=== PATIENT | female | born 1990 | race African-American/Black ===

== ENCOUNTER 2017-07-04 08:36 | Emergency (ER) | payer OTHER ==
[2017-07-04 08:56] VITALS: BMI 43.5
--- NOTE | 2017-07-04 09:16 | PDOC ---
History of Present Illness - General Chief Complaint: Sore Throat Stated Complaint: THROAT PAIN Time Seen by Provider: 07/04/17 09:16 History Source: Patient Exam Limitations: No Limitations - History of Present Illness Initial Comments: 07/04/17 10:00 Patient is a 27-year-old female with no past medical history who presents to the emergency department today with 2 days of sore throat. Patient states that she's never had anything like this before. She states that she has been spitting a lot and it hurts to swallow. Denies cough, fevers, shortness of breath, chest pain nausea, vomiting, diarrhea. Past History - Travel Traveled outside of the country in the last 30 days: No Close contact w/someone who was outside of country & ill: No - Past Medical History Allergies/Adverse Reactions: Allergies Allergy/AdvReac Type Severity Reaction Status Date / Time No Known Allergies Allergy Verified 07/04/17 08:49 Home Medications: Ambulatory Orders Ibuprofen 800 mg PO TID #30 tablet 07/04/17 Asthma: No Cancer: No Cardiac Disorders: No CVA: No COPD: No DVT: No Dementia: No Diabetes: No HTN: No Seizures: No Thyroid Disease: No - Immunization History Immunization Up to Date: Yes - Suicide/Smoking/Psychosocial Hx Smoking History: Never smoked Have you smoked in the past 12 months: Yes Number of Cigarettes Smoked Daily: 10 Information on smoking cessation initiated: No Hx Alcohol Use: No Drug/Substance Use Hx: No Substance Use Type: None Hx Substance Use Treatment: No Review of Systems - Review of Systems Able to Perform ROS?: Yes Comments:: 07/04/17 09:52 CONSTITUTIONAL: Absent: fever, chills, diaphoresis, generalized weakness, malaise, loss of appetite HEENT: Present: sore throat, mouth pain, difficulty swallowing Absent: rhinorrhea, nasal congestion, throat swelling, ear pain, eye pain, visual changes CARDIOVASCULAR: Absent: chest pain, loss of consciousness, palpitations, irregular heart rate, peripheral edema RESPIRATORY: Absent: cough, shortness of breath, dyspnea with exertion, orthopnea, wheezing, stridor, hemoptysis GASTROINTESTINAL: Absent: abdominal pain, abdominal distension, nausea, vomiting, diarrhea, constipation, melena, hematochezia GENITOURINARY: Absent: dysuria, frequency, urgency, hesitancy, hematuria, flank pain, genital pain MUSCULOSKELETAL: Absent: myalgia, arthralgia, joint swelling SKIN: Absent: rash, itching, pallor HEMATOLOGIC/IMMUNOLOGIC: Absent: easy bleeding, easy bruising, lymphadenopathy, frequent infections ENDOCRINE: Absent: unexplained weight gain, unexplained weight loss, heat intolerance, cold intolerance NEUROLOGIC: Absent: headache, focal weakness or paresthesias, dizziness, unsteady gait, seizure, mental status changes, bladder or bowel incontinence PSYCHIATRIC: Absent: anxiety, depression, suicidal or homicidal ideation, hallucinations. Is the patient limited Sinhala proficient: No *Physical Exam - Vital Signs Last Vital Signs Temp Pulse Resp BP Pulse Ox 98.7 F 111 H 17 133/74 97 07/04/17 08:50 07/04/17 08:50 07/04/17 08:50 07/04/17 08:50 07/04/17 08:50 - Physical Exam Comments: 07/04/17 09:54 GENERAL: Well developed, well nourished. Awake and alert. No acute distress. HEENT: Normocephalic, atraumatic. PERRLA, EOMI. No conjunctival pallor. Sclera are non- icteric. Moist mucous membranes. Oropharynx with exudates b/l. No uvular devation. (+) halitosis NECK: Supple. Full ROM. No JVD. Carotid pulses 2+ and symmetric, without bruits. No thyromegaly. No lymphadenopathy. CARDIOVASCULAR: Regular rate and rhythm. No murmurs, rubs, or gallops. Distal pulses are 2+ and symmetric. PULMONARY: No evidence of respiratory distress. Lungs clear to auscultation bilaterally. No wheezing, rales or rhonchi. ABDOMINAL: Soft. Non-tender. Non-distended. No rebound or guarding. No organomegaly. Normoactive bowel sounds. MUSCULOSKELETAL Normal range of motion at all joints. No bony deformities or tenderness. No CVA tenderness. EXTREMITIES: No cyanosis. No clubbing. No edema. No calf tenderness. SKIN: Warm and dry. Normal capillary refill. No rashes. No jaundice. NEUROLOGICAL: Alert, awake, appropriate. Cranial nerves 2-12 intact. No deficits to light touch and temperature in face, upper extremities and lower extremities. No motor deficits in the in face, upper extremities and lower extremities. Normoreflexic in the upper and lower extremities. Normal speech. Toes are down- going bilaterally. Gait is normal without ataxia. PSYCHIATRIC: Cooperative. Good eye contact. Appropriate mood and affect. Medical Decision Making - Medical Decision Making 07/04/17 10:01 Patient is a 27-year-old female who comes into the emergency department with 2 days of sore throat. Patient has a large amount of tonsillar exudate and halitosis. Suspicion for strep throat at this time. No evidence for GAME ENGINEER on exam. Will rapid strep and to give aftermath and dexamethasone for her symptomatically treatment. Reevaluate. 07/04/17 10:40 Patient is strep positive. 07/04/17 11:33 Pt. treated in the ED with bicillin. Feeling better after toradol, prednisone, and ofirmev. tolerating water. will d/c home at this time. *DC/Admit/Observation/Transfer Diagnosis at time of Disposition: Strep pharyngitis - Discharge Dispostion Disposition: HOME Condition at time of disposition: Stable Admit: No - Referrals Referrals: Mikey Liu MD [Staff Physician] - - Patient Instructions Printed Discharge Instructions: DI for Strep Throat Additional Instructions: You have strep throat. This is caused by a bacteria. You were treated with Bicillin today in the ED and do not need further antibiotic treatment. Please take ibuprofen 800 mg every 8 hours as needed for pain or body aches. Do not exceed taking more than 3000 mg a day. Throat lozenges and warm water gargles may help your sore throat. Please drink plenty of fluids Throat away your toothbrush in 3-4 days to prevent reinfection. Return to the emergency department if you have worsening pain, difficulty swallowing, difficulty chewing, difficulty breathing, or any changes in your symptoms. - Post Discharge Activity Forms/Work/School Notes: Back to Work
[2017-07-04] MEDS ORDERED: methylPREDNISolone NA SUCC 40 MG/1 ML VIAL IVPUSH ONE (09:34)
[2017-07-04] MEDS ORDERED: ACETAMINOPHEN 1000 MG/100 ML VIAL (NON FORMULARY) IVPB ONE (09:34)
[2017-07-04] MEDS ORDERED: ACETAMINOPHEN INJECTION 100 ML IVPB ONE (09:39)
[2017-07-04] MEDS ORDERED: methylPREDNISolone NA SUCC 125 MG/2 ML VIAL ONE (09:39)
--- NOTE | 2017-07-04 10:06 | PDOC ---
*Physical Exam - Vital Signs Last Vital Signs Temp Pulse Resp BP Pulse Ox 98.7 F 111 H 17 133/74 97 07/04/17 08:50 07/04/17 08:50 07/04/17 08:50 07/04/17 08:50 07/04/17 08:50 ED Treatment Course - Medications Given in the ED: ED Medications Discontinued Medications Generic Name Dose Route Start Last Admin Trade Name Glenn PRN Reason Stop Dose Admin Acetaminophen 1,000 mg 07/04/17 09:34 07/04/17 09:45 Ofirmev Injection - IVPB 07/04/17 09:35 1,000 mg ONCE ONE Administration Methylprednisolone Sodium Succinate 60 mg 07/04/17 09:34 07/04/17 09:51 Solu-Medrol - IVPUSH 07/04/17 09:35 60 mg ONCE ONE Administration Medical Decision Making - Medical Decision Making 07/04/17 10:04 Pt seen by the Advanced Practice Provider under my direct supervision Pt interviewed and examined Ancillary studies reviewed I agree with plan as outlined by the Advanced Practice Provider TING Kaiser 27 yo F c/ no pmh p/w 1d of sore throat and tactile fevers. Oropharynx exam with erythema and tonsillar exudates. Posterior oropharynx visible and with no evidece of occlusion. Uvula midline and no evidence of TELEGRAPH OFFICE MANAGER. Neck supple. I suspect strep pharyngitis. I agree with TING's plan of NSAIDs, steroids, and antibiotics. PO trial *DC/Admit/Observation/Transfer Diagnosis at time of Disposition: Strep pharyngitis - Discharge Dispostion Disposition: HOME Condition at time of disposition: Stable - Prescriptions Prescriptions: Ibuprofen 800 mg PO TID #30 tablet - Referrals Referrals: Mikey Liu MD [Staff Physician] - - Patient Instructions Printed Discharge Instructions: DI for Strep Throat Additional Instructions: You have strep throat. This is caused by a bacteria. You were treated with Bicillin today in the ED and do not need further antibiotic treatment. Please take ibuprofen 800 mg every 8 hours as needed for pain or body aches. Do not exceed taking more than 3000 mg a day. Throat lozenges and warm water gargles may help your sore throat. Please drink plenty of fluids Throat away your toothbrush in 3-4 days to prevent reinfection. Return to the emergency department if you have worsening pain, difficulty swallowing, difficulty chewing, difficulty breathing, or any changes in your symptoms. - Post Discharge Activity Forms/Work/School Notes: Back to Work
[2017-07-04] MEDS ORDERED: KETOROLAC TROMETHAMINE 30 MG/1 ML VIAL IVPUSH ONE (11:02)
[2017-07-04] MEDS ORDERED: PENICILLIN G BENZATHINE 1,200,000 UNIT/2 ML PFS IM ONE (11:02)
[2017-07-04] MEDS ORDERED: KETOROLAC TROMETHAMINE 30 MG/1 ML VIAL ONE (11:08)
[2017-07-04] MEDS ORDERED: PENICILLIN G BENZATHINE 2,400,000 UNIT/4 ML PFS ONE (11:08)
[2017-07-04 12:07] VITALS: BP 122/63; PULSE 105; TEMP 99.5
== END 2017-07-04 12:07 | disposition home or self-care (01) ==
LOC: JER 08:36 → JERFT 08:36 → JER 12:07
DX: J02.0 Streptococcal pharyngitis (principal); B95.0 Streptococcus, group A, as the cause of diseases classified elsewhere
CPT/HCPCS: 87070; 87430; 99282-25

== ENCOUNTER 2017-07-07 18:38 | Emergency (ER) | payer OTHER ==
[2017-07-07 18:57] VITALS: BP 141/85; PULSE 93; TEMP 99; BMI 37.1
[2017-07-07] MEDS ORDERED: DEXAMETHASONE SOD PHOSPHATE 10 MG/1 ML VIAL IM ONE (20:13)
[2017-07-07] MEDS ORDERED: KETOROLAC TROMETHAMINE 30 MG/1 ML VIAL IM ONE (20:13)
[2017-07-07] MEDS ORDERED: DEXAMETHASONE LIQUID 0.5 MG/5 ML 240 ML BULK BOTTLE PO ONE (20:14)
[2017-07-07] MEDS ORDERED: DEXAMETHASONE SOD PHOSPHATE 10 MG/1 ML VIAL ONE (20:18)
--- NOTE | 2017-07-07 20:22 | PDOC ---
History of Present Illness - General Chief Complaint: Sore Throat Stated Complaint: PAIN Time Seen by Provider: 07/07/17 20:07 History Source: Patient Exam Limitations: No Limitations - History of Present Illness Initial Comments: 07/07/17 20:21 This 27-year-old female with 4 days of sore throat and fever. 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 Patient states over the past 3 days sore throat as gotten worse and she is now currently having trouble tolerating her own secretions. Patient states she wakes up at night and feels as if she "suffocating or drowning." She states her voice has changed his become more hoarse and quality. Past History - Past Medical History Allergies/Adverse Reactions: Allergies Allergy/AdvReac Type Severity Reaction Status Date / Time No Known Allergies Allergy Verified 07/07/17 18:53 Home Medications: Ambulatory Orders NK [No Known Home Medication] 07/07/17 Asthma: No Cancer: No Cardiac Disorders: No CVA: No COPD: No DVT: No Dementia: No Diabetes: No HTN: No Seizures: No Thyroid Disease: No - Immunization History Immunization Up to Date: Yes - Suicide/Smoking/Psychosocial Hx Smoking History: Former smoker Have you smoked in the past 12 months: Yes Number of Cigarettes Smoked Daily: 10 Information on smoking cessation initiated: No Hx Alcohol Use: No Drug/Substance Use Hx: No Substance Use Type: None Hx Substance Use Treatment: No Review of Systems - Review of Systems Able to Perform ROS?: Yes Is the patient limited Botswanan proficient: No Constitutional: Yes: See HPI HEENTM: Yes: See HPI Respiratory: No: Symptoms reported Cardiac (ROS): No: Symptoms Reported ABD/GI: No: Symptoms Reported : No: Symptoms Reported Musculoskeletal: No: Symptoms Reported Integumentary: No: Symptoms Reported Neurological: No: Symptoms reported Endocrine: No: Symptoms Reported Hematologic/Lymphatic: No: Symptoms Reported *Physical Exam - Vital Signs Last Vital Signs Temp Pulse Resp BP Pulse Ox 99 F 93 H 19 141/85 98 07/07/17 18:53 07/07/17 18:53 07/07/17 18:53 07/07/17 18:53 07/07/17 18:53 - Physical Exam General Appearance: Yes: Appropriately Dressed. No: Apparent Distress HEENT: positive: Excessive drooling, Other (Uvula deviated to the right side. Peritonsillar abscess noted on the left peritonsillar region. Hot potato voice present.) Neck: positive: Trachea midline, Supple Respiratory/Chest: positive: Lungs Clear, Normal Breath Sounds. negative: Respiratory Distress, Accessory Muscle Use, Stridor Cardiovascular: positive: Regular Rhythm, Regular Rate Medical Decision Making - Medical Decision Making 07/07/17 20:26 A/P: 27-year-old female with worsening sore throat status post Bicillin Hot potato voice present Right uvula deviation. 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 Decadron 10 mg, Toradol 30 mg, to the main emergency department. Sign out given to Kristen Crawford *DC/Admit/Observation/Transfer Diagnosis at time of Disposition: Peritonsillar abscess - Referrals - Patient Instructions - Post Discharge Activity
--- NOTE | 2017-07-07 22:46 | PDOC ---
*Physical Exam - Vital Signs Last Vital Signs Temp Pulse Resp BP Pulse Ox 99 F 93 H 19 141/85 98 07/07/17 18:53 07/07/17 18:53 07/07/17 18:53 07/07/17 18:53 07/07/17 18:53 - Physical Exam General Appearance: Yes: Appropriately Dressed HEENT: positive: Tonsillar Erythema (b/l tonsillar edema, uvula midline. hot potatoe voice) ED Treatment Course - Medications Given in the ED: ED Medications Discontinued Medications Generic Name Dose Route Start Last Admin Trade Name Glenn PRN Reason Stop Dose Admin Dexamethasone 10 mg 07/07/17 20:14 07/07/17 20:24 Decadron Liquid - PO 07/07/17 20:15 10 mg ONCE ONE Administration Dexamethasone Sodium Phosphate 10 mg 07/07/17 20:13 07/07/17 20:25 Decadron Injection - IM 07/07/17 20:14 Not Given ONCE ONE Ketorolac Tromethamine 30 mg 07/07/17 20:13 07/07/17 20:24 Toradol Injection - IM 07/07/17 20:14 30 mg ONCE ONE Administration Medical Decision Making - Medical Decision Making 07/07/17 22:55 Dr. oralia richter. 07/07/17 23:[address] martinez. recommend follow up tomorrow am with strict return precautions, will d/c home with ibuprofen and clindamycin *DC/Admit/Observation/Transfer Diagnosis at time of Disposition: Peritonsillar abscess Pharyngitis Qualifiers: Pharyngitis/tonsillitis etiology: unspecified etiology Qualified Code(s): J02.9 - Acute pharyngitis, unspecified - Discharge Dispostion Disposition: HOME - Prescriptions Prescriptions: Clindamycin [Cleocin -] 300 mg PO Q6HPO #40 capsule Ibuprofen 600 mg PO QID #20 tablet - Referrals Referrals: Sander Martinez MD [Staff Physician] - - Patient Instructions Printed Discharge Instructions: DI for Peritonsillar Abscess -- Adult Additional Instructions: please follow up with Dr. martinez tomorrow morning. take clindamycin as prescribed. take ibuprofen every 6 hours as needed for pain. - Post Discharge Activity Forms/Work/School Notes: Back to Work
[2017-07-07] MEDS ORDERED: SODIUM CHLORIDE 1,000 ML IV STA (22:47)
[2017-07-07] MEDS ORDERED: CLINDAMYCIN 900 MG PREMIX IVPB 900 MG/50 ML BAG IVPB ONE (22:55)
[2017-07-07] MEDS ORDERED: CLINDAMYCIN HCL 300 MG CAPSULE PO ONE (23:01)
[2017-07-07] MEDS ORDERED: CLINDAMYCIN HCL 150 MG CAPSULE (FP) ONE (23:15)
== END 2017-07-07 23:35 | disposition home or self-care (01) ==
LOC: JERFT 18:38 → JER 18:38
PROC: 3E0233Z Introduction of Anti-inflammatory into Muscle, Percutaneous Approach (ICD-10-PCS; principal; 2017-07-07)
PROC: 3E0233Z Introduction of Anti-inflammatory into Muscle, Percutaneous Approach (ICD-10-PCS; 2017-07-07)
DX: J36 Peritonsillar abscess (principal); Z87.891 Personal history of nicotine dependence
CPT/HCPCS: 96372; 99281-25

== ENCOUNTER 2017-09-22 12:26 | Emergency (ER) | payer OTHER ==
[2017-09-22 12:32] VITALS: BMI 40.3
[2017-09-22] MEDS ORDERED: ACETAMINOPHEN 1000 MG/100 ML VIAL (NON FORMULARY) IVPB ONE (12:55)
--- NOTE | 2017-09-22 12:55 | PDOC ---
History of Present Illness - General Chief Complaint: Pain Stated Complaint: ABD PAIN (10 WKS ) Time Seen by Provider: 09/22/17 12:36 History Source: Patient Exam Limitations: No Limitations - History of Present Illness Initial Comments: This is a 27 yo female (about 10 wks dx by US two weeks ago at her [facility] clinic) with h/o x2 and frequent UTI (last abx May 2017 for UTI) who p/w fluctuating suprapubic pressure-like abdominal pain for the past week. She notes that the pain was initially mild and occurring only once every 2 days, but now it is constantly present at minimum 5/10, increased to 10/10 this morning, and radiates to her lower back. She called her [facility] clinic ([id number] 4 days ago and notified them of the pain, and they instructed her to take Tylenol and come into the ED if the pain recurred. She took the Tylenol with initial relief at that time, but has not taken another dose. She additionally notes a mild headache yesterday, and ongoing/unchanged nausea and NBNB vomiting for the past several weeks since she found out about this . She has been taking an antiemetic for the nausea/vomiting as prescribed by her clinic. She denies fever, chills, dizziness, lightheadedness, numbness, tingling, focal weakness, chest pain, SOB, vaginal bleeding or discharge, diarrhea, constipation, black/bloody stool, dyruria, urinary frequency or strange odors/colors to the urine. She has never had any of these symptoms in her prior . Past History - Past Medical History Allergies/Adverse Reactions: Allergies Allergy/AdvReac Type Severity Reaction Status Date / Time No Known Allergies Allergy Verified 09/22/17 12:32 Home Medications: Ambulatory Orders Pnv No.121/Iron/Folic Acid [ Multivitamin Tablet] 1 each PO DAILY Asthma: No Cancer: No Cardiac Disorders: No CVA: No COPD: No DVT: No Dementia: No Diabetes: No HTN: No Seizures: No Thyroid Disease: No - Immunization History Immunization Up to Date: Yes - Suicide/Smoking/Psychosocial Hx Smoking History: Current every day smoker Have you smoked in the past 12 months: Yes Number of Cigarettes Smoked Daily: 4 Information on smoking cessation initiated: No Hx Alcohol Use: No Drug/Substance Use Hx: No Substance Use Type: None Hx Substance Use Treatment: No Review of Systems - Review of Systems Able to Perform ROS?: Yes Constitutional: No: Chills, Fever, Unexplained wgt Loss HEENTM: No: Nose Congestion, Throat Pain Respiratory: No: Cough, Shortness of Breath Cardiac (ROS): No: Chest Pain, Lightheadedness, Palpitations ABD/GI: Yes: Nausea, Vomiting, Other (abdominal pain). No: Constipated, Diarrhea : Yes: Other (no vaginal bleeding or discharge). No: Burning, Dysuria Musculoskeletal: Yes: Back Pain (lower back pain). No: Neck Pain Integumentary: No: Bruising, Rash Neurological: Yes: Headache (yesterday since resolved). No: Numbness, Tingling , Weakness, Unsteady Gait, Dizziness Endocrine: No: Unexplained Weight Gain, Unexplained Weight Loss *Physical Exam - Vital Signs Last Vital Signs Temp Pulse Resp BP Pulse Ox 98.4 F 67 18 115/58 99 09/22/17 12:29 09/22/17 12:29 09/22/17 12:29 09/22/17 12:29 09/22/17 12:29 - Physical Exam General Appearance: Yes: Nourished, Appropriately Dressed, Obese, Other ( nontoxic and well-appearing adult female, stoic, answering questions appropriately and does not appear particularly uncomfortable). No: Apparent Distress HEENT: positive: EOMI, HAKEEM, Normal ENT Inspection, Normal Voice, Hearing Grossly Normal. negative: Scleral Icterus (R), Scleral Icterus (L), Nasal Congestion Neck: positive: Trachea midline, Supple. negative: Tender, Rigid Respiratory/Chest: positive: Lungs Clear, Normal Breath Sounds. negative: Respiratory Distress, Crackles, Rhonchi, Stridor, Wheezing Cardiovascular: positive: Regular Rhythm, Regular Rate, S1, S2. negative: Edema , JVD, Murmur Gastrointestinal/Abdominal: positive: Normal Bowel Sounds, Tender (mild suprapubic tenderness), Soft, Other (LTCS scar noted which is well-healed). negative: Organomegaly, Pulsatile Mass, Guarding Musculoskeletal: positive: Normal Inspection. negative: CVA Tenderness, Decreased Range of Motion, Vertebral Tenderness Extremity: positive: Normal Capillary Refill, Normal Inspection, Normal Range of Motion. negative: Tender, Cyanosis Integumentary: positive: Normal Color, Dry, Warm. negative: Erythema, Rash, Bruising Neurologic: positive: automatic door mechanic II-XII NML intact (grossly), Fully Oriented, Alert, Normal Mood/Affect, Normal Response, Motor Strength 5/5. negative: Facial Droop , Confused, Disoriented ED Treatment Course - LABORATORY CBC & Chemistry Diagram: 09/22/17 13:15 09/22/17 13:15 Medical Decision Making - Medical Decision Making Adult female patient p/w abdominal pain in . Initial Vital Signs Temp Pulse Resp BP Pulse Ox 98.4 F 67 18 115/58 99 09/22/17 12:29 09/22/17 12:29 09/22/17 12:29 09/22/17 12:29 09/22/17 12:29 Exam: Mild suprapubic ttp, otherwise normal exam DDX IBNLT: UTI/pyelonephritis, renal colic, ovarian torsion, ovarian cyst, ectopic , PID/TOA, cervicitis, endometritis, physiologic uterine ligament pain, malignancy, hernia, cholecystitis, pancreatitis, gastritis, PUD, appendicitis, diverticulitis wwo abscess or perforation, colitis, SBO, bowel ischemia, bowel perforation, constipation, musculoskeletal, dysmenorrhea, endometriosis, fibroids, etc. W/U ordered: CBCD CMP UA UCx transvaginal US TX ordered: None as patient does not want IV placed at this time. TVUS: Single live IUP with gestational age 8 wks 5 days. Laboratory Tests 09/22/17 09/22/17 09/22/17 13:15 13:15 13:15 WBC 5.9 RBC 4.56 D Hgb 12.4 D Hct 37.2 D MCV 81.5 MCH 27.3 MCHC 33.4 RDW 16.2 H D Plt Count 256 MPV 8.5 Neutrophils % 66.0 Lymphocytes % 24.2 D Monocytes % 8.4 Eosinophils % 0.7 Basophils % 0.7 D Sodium 141 Potassium 4.2 Chloride 106 Carbon Dioxide 25 Anion Gap 10 BUN 9 Creatinine 0.5 L Creat Clearance w eGFR > 60 Random Glucose 69 L Calcium 8.8 Phosphorus 2.6 Magnesium 1.7 L Total Bilirubin 0.1 L AST 11 L ALT 13 Alkaline Phosphatase 72 Total Protein 6.2 L Albumin 3.1 L Beta HCG, Quant 01454.1 Urine Color Ltyellow Urine Appearance Slcloudy Urine pH 7.0 Ur Specific [place] 1.013 Urine Protein Negative Urine Glucose (UA) Negative Urine Ketones Negative Urine Blood Negative Urine Nitrite Negative Urine Bilirubin Negative Urine Urobilinogen Negative Ur Leukocyte Esterase Trace Urine WBC (Auto) 2 Urine RBC (Auto) None Ur Epithelial Cells Few Urine Bacteria Rare Urine Mucus Rare Reassessment: Patient's symptoms much improved, she wants to go home. Vital Signs Temperature 98.3 F 09/22/17 14:22 Pulse Rate 71 09/22/17 14:22 Respiratory Rate 17 09/22/17 14:22 Blood Pressure 118/79 09/22/17 14:22 O2 Sat by Pulse Oximetry (%) 98 09/22/17 14:22 The patient has gotten significant relief of symptoms with ED medications. Workup is not concerning for emergency-level pathology at this time. The patient is appropriate for discharge with close outpatient follow up. The patient is comfortable with this plan and will follow up with outpatient provider in 1-3 days. She will take Tylenol for pain. Return precautions are discussed and they will come back to the ER if necessary. *DC/Admit/Observation/Transfer Diagnosis at time of Disposition: Abdominal pain affecting , Back pain affecting in first trimester, Hyperemesis gravidarum - Discharge Dispostion Disposition: HOME Condition at time of disposition: Stable Decision to Admit order: No - Referrals - Patient Instructions Printed Discharge Instructions: DI for Abdominal Pain -- Early Additional Instructions: You were seen in the ER for abdominal pain during . We did an exam, laboratory work on your blood and urine, and an ultrasound, and we did not find any signs of an emergency. Your pain improved with the medications we gave you here in the ER. After our assessment, we believe you are not having a medical emergency and you are safe to go home. Please take [id number] pain relievers like naproxen (Aleve) or ibuprofen (Motrin) or Tylenol. Follow up with your regular doctor(s) in the next 1-3 days, including the [id number] for a follow-up visit. Call their clinic [facility], tell them you were seen in the ER, and tell them you need an appointment. Please come back to the ER at any time, 24 hours a day, for any new or worsening symptoms, like worsening pelvic pain, discharge, high fever, vaginal bleeding, or other symptoms. If you are having severe or life threatening symptoms, or symptoms that make it unsafe to drive or have someone drive you, please call 911. - Post Discharge Activity
--- NOTE | 2017-09-22 12:57 | PDOC ---
Attending Attestation - Resident Resident Name: Jelena Phipps - ED Attending Attestation I have performed the following: I have examined & evaluated the patient, The case was reviewed & discussed with the resident, I agree w/resident's findings & plan, Exceptions are as noted - Medical Decision Making 09/22/17 12:57 I, Dr. Sandie Hinson, DO, attest that this document has been prepared under my direction and personally reviewed by me in its entirety. I further attest, that it accurately reflects all work, treatment, procedures and medical decision -making performed by me. 09/22/17 13:30 a/p: 27yo at around 10 weeks with suprapubic pain -hx of UTI -no dysuria, no vaginal complaints -n/v daily with early preg - nonbloody, nonbilious -will obtain labs, ua, tv us to eval uterus, iup, ovarian pathology -nontoxic in appearance 09/22/17 14:22 labs reviewed without acute findings ultrasound shows iup at 8w5d with 163 hr stable for d.c to home and follow up with her [facility] at [facility] discussed findings with the patient. <Sandie Hinson - Last Filed: 09/22/17 14:22> - HPI HPI: 09/22/17 14:41 The patient is a 27 year old 10 weeks female , with a significant past medical history of frequent UTIs (last May 2017), who presents to the emergency department with, one week of suprapubic pain. She describes her pain as a pressure-like sensation. The patient reports that it initially was occurring every 2 days, however, now it has become constant. She ranks her pain as 5/10 at minimum and reaching to 10/10. She reports calling her OBGYN for her symptoms who advised her to take Tylenol and come into the ED if symptoms persisted. She reports minimal relief with Tylenol. She reports a mild headache and nausea and emesis since the beginning of her . She denies any vaginal bleeding or discharge. She denies recent fevers, chills, or dizziness. She denies recent diarrhea or constipation. She denies recent dysuria, frequency, urgency or hematuria. She denies recent chest pain or shortness of breath. Allergies: NKA Past surgical history: . Social history: Nonsmoker. Denies EtOH use and recreational drug use. - Physicial Exam PE: 09/22/17 14:41 Constitutional: Awake, alert, oriented. No acute distress. Head: Normocephalic. Atraumatic Eyes: PERRL. EOMI. Conjunctivae are not pale. ENT: Mucous membranes are moist and intact. Posterior pharynx without exudates or erythema. Uvula midline. Neck: Supple. Full ROM. No lymphadenopathy. Cardiovascular: Regular rate. Regular rhythm. S1, S2 regular. Distal pulses are 2+ and symmetric. Pulmonary/Chest: No evidence of respiratory distress. Clear to auscultation bilaterally No wheezing, rales or rhonchi. Abdominal: Soft and non-distended. There is no tenderness. No rebound, guarding or rigidity. No organomegaly. No palpable masses. Good bowel sounds. +Genitourinary: Mild suprapubic tenderness. Back: No CVA tenderness. Musculoskeletal: No edema. No cyanosis. No clubbing. Full range of motion in all extremities. Nocalf tenderness. Radial/pedal pulses are intact and 2+ bilaterally Skin: Skin is warm and dry. No petechiae. No purpura. Neurological: Alert and oriented to person, place, and time. Cranial nerves II -XII are grossly intact. Normal speech. Strength is grossly symmetric. No sensory deficits. Psychiatric: Good eye contact. Normal interaction, affect and behavior. <Donnie Cabrera - Last Filed: 09/22/17 14:43> Attestations - Attestations 09/22/17 14:43 Documentation prepared by Donnie Cabrera, acting as coroner/medical examiner for Sandie Hinson DO. <Donnie Cabrera - Last Filed: 09/22/17 14:43>
[2017-09-22] MEDS ORDERED: ACETAMINOPHEN INJECTION 100 ML IVPB ONE (13:04)
[2017-09-22 13:22] LABS: BASO % 0.7 % (0-2.0); EOS % 0.7 % (0-4.5); HEMATOCRIT 37.2 % (32.4-45.2); HEMOGLOBIN 12.4 GM/dL (10.7-15.3); LYMPH % 24.2 % (8-40); MCH 27.3 pg (25.7-33.7); MCHC 33.4 g/dl (32.0-36.0); MEAN CELL VOLUME 81.5 fl (80-96); MEAN PLT VOLUME 8.5 fl (7.5-11.1); MONO % 8.4 % (3.8-10.2); PLATELET COUNT 256 K/MM3 (134-434); RBC 4.56 M/mm3 (3.60-5.2); RDW 16.2 % (11.6-15.6); URINE APPEARANCE SLCLOUDY; URINE BILIRUBIN NEGATIVE (<2.0 mg/dL); URINE COLOR LTYELLOW; URINE GLUCOSE (UA) NEGATIVE (NEGATIVE); URINE KETONE NEGATIVE (NEGATIVE); URINE LEUK ESTERASE TRACE (NEGATIVE); URINE NITRITE NEGATIVE (NEGATIVE); URINE PROTEIN NEGATIVE (NEGATIVE); URINE UROBILINOGEN NEGATIVE mg/dL (0.2-1.0); WHITE BLOOD COUNT 5.9 K/mm3 (4.0-10.0)
[2017-09-22 13:25] LABS: EPI CELLS FEW /HPF (FEW); URINE BACTERIA RARE /hpf (NONE SEEN); URINE MUCUS RARE
[2017-09-22 13:48] LABS: ALBUMIN 3.1 g/dl (3.4-5.0); ANION GAP 10 (8-16); BILIRUBIN,TOTAL 0.1 mg/dL (0.2-1.0); BLOOD UREA NITROGEN 9 mg/dL (7-18); CALCIUM 8.8 mg/dL (8.5-10.1); CHLORIDE 106 mmol/L (98-107); CO2 25 mmol/L (21-32); CREATININE 0.5 mg/dL (0.55-1.02); GLUCOSE,RANDOM 69 mg/dL (74-106); MAGNESIUM 1.7 mg/dL (1.8-2.4); PHOSPHOROUS 2.6 mg/dL (2.5-4.9); POTASSIUM 4.2 mmol/L (3.5-5.1); SGOT/AST 11 U/L (15-37); SGPT/ALT 13 U/L (12-78); SODIUM 141 mmol/L (136-145); TOT PROT 6.2 g/dl (6.4-8.2)
[2017-09-22 14:03] LABS: ALK PHOS 72 U/L (45-117)
[2017-09-22 14:23] VITALS: BP 118/79; PULSE 71; TEMP 98.3
== END 2017-09-22 14:23 | disposition home or self-care (01) ==
LOC: JER 12:26
DX: O26.891 Other specified pregnancy related conditions, first trimester (principal); O21.0 Mild hyperemesis gravidarum; Z3A.10 10 weeks gestation of pregnancy
CPT/HCPCS: 36415; 76817-TC; 80053; 81003; 81015; 83735; 84100; 84702; 85025; 87086; 99282-25

== ENCOUNTER 2018-04-03 08:00 | Inpatient (IN) | payer OTHER ==
[~2018-04-03 08:00] MED LIST: CITRIC ACID/SODIUM CITRATE 30 ML UNIT-DOSE CUP PO ONE; ELECTROLYTE-148 SOLN 500 ML IV ONE
[2018-04-03] MEDS ORDERED: ELECTROLYTE-148 SOLN 1,000 ML IV SCH ×2 (08:31→09:15)
[2018-04-03 08:59] VITALS: BMI 42.3
[2018-04-03 09:09] LABS: BASO % 0.6 % (0-2.0); EOS % 0.8 % (0-4.5); HEMATOCRIT 35.1 % (32.4-45.2); HEMOGLOBIN 11.4 GM/dL (10.7-15.3); LYMPH % 20.9 % (8-40); MCH 26.7 pg (25.7-33.7); MCHC 32.6 g/dl (32.0-36.0); MEAN CELL VOLUME 81.8 fl (80-96); MONO % 7.7 % (3.8-10.2); PLATELET COUNT 281 K/MM3 (134-434); RBC 4.29 M/mm3 (3.60-5.2); RDW 14.8 % (11.6-15.6); WHITE BLOOD COUNT 7.6 K/mm3 (4.0-10.0)
[2018-04-03] MEDS ORDERED: METHYLERGONOVINE MALEATE 0.2 MG/1 ML AMP IM PRN (09:17)
[2018-04-03] MEDS ORDERED: IBUPROFEN 800 MG/8 ML IJ IVPB PRN (09:17)
--- NOTE | 2018-04-03 09:29 | HP ---
Past Medical History - Primary Care Physician PCP:: Charlotte Rodríguez - Admission Chief Complaint: Premature rupture of mambarnes. Previous Section. Labor History of Present Illness: P5 P2 EDc A 37 week with co premature rupture of membranes in labor with Hx of previous cS x2 for repeat CS Hx of delivery by CS History Source: Patient Limitations to Obtaining History: No Limitations - Past Medical History ...: 5 ...Para: 2 ...Term: 1 ...: 1 ...Spon : 1 ...Induced : 1 ...Multiple Gestation: 0 ...EDC by Sono: 04/24/18 - Past Surgical History Past Surgical History: Yes: Hx Myomectomy: No Hx Transabdominal Cerclage: No - Smoking History Smoking history: Current every day smoker Have you smoked in the past 12 months: Yes Aproximately how many cigarettes per day: 5 - Alcohol/Substance Use Hx Alcohol Use: No History of Substance Use: reports: None - Social History Usual Living Arrangement: Yes: With Spouse Home Medications - Allergies Allergies/Adverse Reactions: Allergies Allergy/AdvReac Type Severity Reaction Status Date / Time No Known Allergies Allergy Verified 09/22/17 12:32 - Home Medications Home Medications: Ambulatory Orders Pnv No.121/Iron/Folic Acid [ Multivitamin Tablet] 1 each PO DAILY Physical Exam - Maternity Vital Signs: Vital Signs Temperature 97.5 F L 04/03/18 08:00 Pulse Rate 95 H 04/03/18 08:00 Respiratory Rate 18 04/03/18 08:00 Blood Pressure 133/78 04/03/18 08:00 O2 Sat by Pulse Oximetry (%) Constitutional: Yes: Well Nourished, No Distress, Obese Neck: Yes: WNL Cardiovascular: Yes: WNL, Regular Rate and Rhythm Lungs: Clear to auscultation Breast(s): Yes: WNL - Abdominal Exam/OB Number of Fetuses: Single Presentation: Vertex Contractions: Yes Regularity: Regular Category: I Decelerations: None - Vaginal Exam/OB Dilatation (cm): 1 Effacement (%): 100 Amniotic Membrane Status: Ruptured Presentation: Vertex/Position - Physical Exam Musculoskeletal: Yes: WNL Extremities: Yes: WNL Edema: No Hemorrhage Risk Assessment - Risk Factors Medium Risk Factors: Yes: Prior , uterine surgery,or multiple laparotomies Risk Score: 1 Risk Level: Medium Risk Problem List - Problems (1) Previous delivery affecting , antepartum Code(s): O34.219 - MATERNAL CARE FOR UNSP TYPE SCAR FROM PREVIOUS DEL (2) premature rupture of membranes, onset of labor within 24 hours of rupture, first trimester Code(s): O42.011 - PRETRM KRUPA ROM, ONSET LABOR W/N 24 HOURS OF RUPT, FIRST TRI (3) 37 weeks gestation of Code(s): Z3A.37 - 37 WEEKS GESTATION OF Assessment/Plan Previous Section IUP at 37 weeks premature rupture of mmebranes Obesity Cat 1 Plan Repeat Section needs neonatology call anesthesia
[2018-04-03] MEDS ORDERED: morphine SULFATE/Preservative Free 0.5 MG/ML (1cc Syringe) EP ONE (09:30)
[2018-04-03] MEDS ORDERED: OXYTOCIN 20 UNITS in 0.9% NS 20 UNIT/1,000 ML INFUS.BAG IV SCH (09:30)
[2018-04-03 09:45] LABS: INR 0.99 (0.83-1.09); PROTHROMBIN TIME (PATIENT) 11.7 SEC (9.7-13.0)
[2018-04-03] MEDS ORDERED: ceFAZolin SODIUM 1 GM VIAL ONE ×2 (09:45→17:09)
[2018-04-03 09:47] LABS: ACTIVATED PTT 26.5 SECONDS (25.2-36.5)
[2018-04-03] MEDS ORDERED: PHENYLEPHRINE HCL 10 MG/1 ML SINGLE DOSE VIAL ONE (09:53)
[2018-04-03 10:00] LABS: ANION GAP 9 MMOL/L (8-16); BLOOD UREA NITROGEN 4 mg/dL (7-18); CALCIUM 8.4 mg/dL (8.5-10.1); CHLORIDE 110 mmol/L (98-107); CO2 21 mmol/L (21-32); CREATININE 0.3 mg/dL (0.55-1.3); GLUCOSE,RANDOM 81 mg/dL (74-106); POTASSIUM 3.7 mmol/L (3.5-5.1); SODIUM 139 mmol/L (136-145)
[2018-04-03] MEDS ORDERED: OXYTOCIN 10 UNITS/ML VIAL ONE (10:07)
[2018-04-03] MEDS ORDERED: MIDAZOLAM HCL 2 MG/2 ML SINGLE DOSE VIAL ONE (10:08)
--- NOTE | 2018-04-03 10:54 | SURG ---
Surgery Traffic Control Officer Note Traffic Control Officer: Ajay Roberts PA-C Date of Service: 04/03/18 Diagnosis: labor Procedure: C section I was present for the entirety of the operative procedure. For further detail, please refer to operative report.
[2018-04-03 10:56] LABS: ARTERIAL BLD GAS O2 SATURATION QNS % (90-98.9); ARTERIAL BLOOD GAS BASE EXCESS QNS meq/l (-2-2); ARTERIAL BLOOD GAS PCO2 QNS mmHg (35-45); ARTERIAL BLOOD GAS PO2 QNS mmHg (80-100); ARTERIAL BLOOD GAS pH QNS (7.35-7.45)
[2018-04-03 10:58] LABS: VENOUS PC02 76.5 mmHg (38-52); VENOUS PH 7.1 (7.32-7.42); VENOUS PO2 11.8 mmHg (28-48)
--- NOTE | 2018-04-03 11:05 | OP ---
Operative Note - Note: Operative Date: 04/03/18 Pre-Operative Diagnosis: Previous Section. labor. premature rupture of membranes. IUP at 37 week Operation: Repeat low transverse Section Findings: Live male infant 4 7 Post-Operative Diagnosis: Same as Pre-op Surgeon: Charlotte Rodríguez Intermediate Accountant: Ajay Roberts Anesthesiologist/[employer] SENIOR OFFICER: Charles Tony Anesthesia: Spinal Estimated Blood Loss (mls): 700 Operative Report Dictated: Yes
[2018-04-03] MEDS ORDERED: OXYTOCIN 20 UNITS in 0.9% NS 20 UNIT/1,000 ML INFUS.BAG IV ONE (11:26)
[2018-04-03 11:32] LABS: RPR NONREACTIVE (NONREACTIVE)
--- NOTE | 2018-04-03 11:36 | OP ---
DATE OF OPERATION: 04/03/2018 PREOPERATIVE DIAGNOSES: Premature rupture of membranes intrauterine of 37 weeks, previous section, obesity. OPERATION: Repeat low-transverse section. PREOPERATIVE DIAGNOSIS: Live male infant, Apgars 4 and 7. SURGEON: Abundio Rodríguez MD CHAPERON: TING Moss ANESTHESIOLOGIST: Charles Tony MD ANESTHESIA: Spinal. PROCEDURE: The patient was taken to the operating room, placed in supine position, prepped and draped in usual sterile fashion after spinal anesthesia had been given. A timeout was performed in accordance with hospital regulation. A Pfannenstiel skin incision was made with the scalpel. Cautery was then used to go through layers of abdominal wall to the level of the fascia. Fascia was cut in the midline and cautery was then used to open the fascia in smiling fashion. Kochers were then used to bluntly and sharply dissect the rectus muscle. The fascia was split in the midline. Peritoneal cavity was then entered and carried upward and downward. Bladder retractor was then placed. Scalpel was then used to make a low transverse uterine incision. The incision was carried upward using the bandage scissors. A live male was delivered in OP position. Shoulders were delivered without difficulty. Cord was clamped and cut. Infant was directly handed to wire steward. was 4 and 7. Cord blood, cord pH obtained. Placenta was manually extracted from the uterus. The uterus was exteriorized and cleaned with clean lap pads. Uterine incision was then closed using 0 Biosyn suture, first layer continuous interlocking, second layer imbricating the first layer. Hemostasis was achieved. Tubes and ovaries were noted to be normal. Abdominal sweep done. Omental adhesions were lysed and tied and cut. Peritoneum was then closed using 0 Biosyn suture. Muscles approximated in midline using 0 Biosyn suture. Fascia was then closed using 0 Vicryl suture in 2 parts. Subcutaneous was closed using 0 Biosyn sutures interrupted. Skin was then closed using 3-0 Vicryl in subcuticular fashion. Wound was washed and dressed. Patient tolerated the procedure well. Estimated blood loss was less than 100 mL. Steri-Strips placed. Patient tolerated the procedure well and was taken to recovery in stable condition. ABUNDIO RODRÍGUEZ M.D. NANCY/[id number]
--- NOTE | 2018-04-03 13:51 | PN ---
Progress Note (short form) - Note Progress Note: Came to see/evaluate patient per nursing request. Pt POD#0 s/p delivery this a.m. Attempting to get out of bed/ambulate to see baby. Discussed with patient that she is likely still not completely able to ambulate/ not safe to walk yet due to lasting effects of spinal anesthesia. Discussed that when she desires to see baby in NICU must use wheelchair and STAY in wheelchair until later this evening. Pt aware and agrees. States no pain. Otherwise doing well. Nursing staff made aware of plan.
[2018-04-03] MEDS ORDERED: TUBERCULIN PPD 5 TU/0.1ML SYRINGE (IN PATIENT USE ONLY) ID ONE (14:00)
[2018-04-03] MEDS ORDERED: DEXTROSE 5%-WATER - 50 ML IVPB ONE (17:09)
[2018-04-03] MEDS: CEFAZOLIN 1 GM in DEXTROSE 5%-WATER - 50 ML IVPB SCH (17:17)
[2018-04-04] MEDS ORDERED: DEXTROSE 5%-WATER - 50 ML IVPB ONE ×2 (00:57→09:18)
[2018-04-04] MEDS ORDERED: ceFAZolin SODIUM 1 GM VIAL ONE ×2 (00:57→09:19)
[2018-04-04] MEDS: CEFAZOLIN 1 GM in DEXTROSE 5%-WATER - 50 ML IVPB SCH ×2 (01:12→09:23)
[2018-04-04 07:57] LABS: BASO % 0.5 % (0-2.0); HEMATOCRIT 30.6 % (32.4-45.2); LYMPH % 16.2 % (8-40); MCH 26.7 pg (25.7-33.7); MCHC 32.6 g/dl (32.0-36.0); MEAN PLT VOLUME 9.1 fl (7.5-11.1); MONO % 8.8 % (3.8-10.2); NEUT % 73.5 % (42.8-82.8); PLATELET COUNT 230 K/MM3 (134-434); RBC 3.73 M/mm3 (3.60-5.2); RDW 14.4 % (11.6-15.6); WHITE BLOOD COUNT 8.3 K/mm3 (4.0-10.0)
--- NOTE | 2018-04-04 09:13 | PN ---
Progress Note (short form) - Note Progress Note: Anesthesia POD#1 S/P under DM VSS,no N/V,pain is under control,legs are strong. Deisy Diaz MD.
[2018-04-04] MEDS ORDERED: oxyCODONE HCL 5 MG TABLET PO PRN (09:17)
[2018-04-04] MEDS ORDERED: BISACODYL 10 MG SUPP.RECT RC PRN (09:18)
[2018-04-04] MEDS: PRENATAL VITAMINS W/ FOLIC ACID TABLET (FP) PO SCH (09:25)
[2018-04-04] MEDS: FERROUS SO4 325 MG TABLET (FP) PO SCH ×2 (09:26→21:48)
--- NOTE | 2018-04-04 13:27 | PN ---
Post Progress Note - Subjective Subjective: Pt has no complaints. Tolerating diet, ambulating, voiding, passing flatus. Denies CP/SOB/F/C/CRUZ. Type of Delivery: Repeat C/S Vital Signs: Vital Signs Temperature 98.6 F 04/04/18 09:00 Pulse Rate 75 04/04/18 09:00 Respiratory Rate 18 04/04/18 09:00 Blood Pressure 119/66 04/04/18 09:00 O2 Sat by Pulse Oximetry (%) 100 04/03/18 12:38 Breast Exam: Yes: Soft Uterus: Yes: Fundus Firm, Fundus below umbilicus Incision: Yes: Dressing dry and intact Abdomen/GI: Yes: Abdomen soft, Passing flatus, Tolerating PO. No: Tender Lochia: Yes: Rubra Lochia, amount: Small Extremities: Yes: Calves non-tender. No: Edema Perineum: Yes: Intact - Labs Labs: CBC WBC 8.3 K/mm3 (4.0-10.0) 04/04/18 07:00 RBC 3.73 M/mm3 (3.60-5.2) 04/04/18 07:00 Hgb 10.0 GM/dL (10.7-15.3) L 04/04/18 07:00 Hct 30.6 % (32.4-45.2) L 04/04/18 07:00 MCV 82.0 fl (80-96) 04/04/18 07:00 MCH 26.7 pg (25.7-33.7) 04/04/18 07:00 MCHC 32.6 g/dl (32.0-36.0) 04/04/18 07:00 RDW 14.4 % (11.6-15.6) 04/04/18 07:00 Plt Count 230 K/MM3 (134-434) 04/04/18 07:00 MPV 9.1 fl (7.5-11.1) 04/04/18 07:00 Absolute Neuts (auto) 6.1 K/mm3 (1.5-8.0) 04/04/18 07:00 Neutrophils % 73.5 % (42.8-82.8) 04/04/18 07:00 Lymphocytes % 16.2 % (8-40) D 04/04/18 07:00 Monocytes % 8.8 % (3.8-10.2) 04/04/18 07:00 Eosinophils % 1.0 % (0-4.5) 04/04/18 07:00 Basophils % 0.5 % (0-2.0) 04/04/18 07:00 Nucleated RBC % 0 % (0-0) 04/04/18 07:00 Problem List - Problems (1) delivery delivered Code(s): O82 - ENCOUNTER FOR DELIVERY WITHOUT INDICATION Assessment/Plan 27 y/o POD#1 s/p repeat section AFVSS Regular diet PO pain meds routine care encourage ambulation
[2018-04-04] MEDS: SIMETHICONE 80 MG TAB.CHEW (FP) PO PRN (16:44)
[2018-04-04] MEDS: oxyCODONE HCL 5 MG TABLET PO PRN (16:45)
[2018-04-04] MEDS: IBUPROFEN 600 MG TABLET (FP) PO PRN (16:46)
[2018-04-05] MEDS: SIMETHICONE 80 MG TAB.CHEW (FP) PO PRN (02:00)
[2018-04-05] MEDS: IBUPROFEN 600 MG TABLET (FP) PO PRN ×2 (02:00→14:27)
[2018-04-05] MEDS: oxyCODONE HCL 5 MG TABLET PO PRN (02:01)
[2018-04-05] MEDS: FERROUS SO4 325 MG TABLET (FP) PO SCH ×2 (09:46→21:29)
[2018-04-05] MEDS: PRENATAL VITAMINS W/ FOLIC ACID TABLET (FP) PO SCH (09:46)
[2018-04-05] MEDS: ACETAMINOPHEN 325 MG TABLET (FP) PO PRN (14:28)
--- NOTE | 2018-04-05 20:18 | PN ---
Progress Note (short form) - Note Progress Note: Spoke to patient regarding discharge. Pt desires to go home today, advised to stay one more night in order to be sure her recovery is going well as she is s/ p a surgical procedure. PT agrees and will go cristiane 04/06 in a.m. Problem List - Problems (1) delivery delivered Code(s): O82 - ENCOUNTER FOR DELIVERY WITHOUT INDICATION
--- NOTE | 2018-04-05 20:32 | PN ---
Post Progress Note - Subjective Subjective: Pt seen/examined and doing well. Pain controlled. Tolerating regular diet. Ambulating, voiding, passing flatus. VB minimal. Type of Delivery: Repeat C/S Vital Signs: Vital Signs Temperature 98.2 F 04/05/18 14:39 Pulse Rate 62 04/05/18 14:39 Respiratory Rate 20 04/05/18 14:39 Blood Pressure 140/73 04/05/18 14:39 O2 Sat by Pulse Oximetry (%) 100 04/03/18 12:38 Uterus: Yes: Fundus Firm Abdomen/GI: Yes: Abdomen soft, Passing flatus, Tolerating PO. No: Tender Lochia, amount: Small Extremities: Yes: Calves non-tender Perineum: Yes: Intact Activity: Ambulating - Labs Labs: CBC WBC 8.3 K/mm3 (4.0-10.0) 04/04/18 07:00 RBC 3.73 M/mm3 (3.60-5.2) 04/04/18 07:00 Hgb 10.0 GM/dL (10.7-15.3) L 04/04/18 07:00 Hct 30.6 % (32.4-45.2) L 04/04/18 07:00 MCV 82.0 fl (80-96) 04/04/18 07:00 MCH 26.7 pg (25.7-33.7) 04/04/18 07:00 MCHC 32.6 g/dl (32.0-36.0) 04/04/18 07:00 RDW 14.4 % (11.6-15.6) 04/04/18 07:00 Plt Count 230 K/MM3 (134-434) 04/04/18 07:00 MPV 9.1 fl (7.5-11.1) 04/04/18 07:00 Absolute Neuts (auto) 6.1 K/mm3 (1.5-8.0) 04/04/18 07:00 Neutrophils % 73.5 % (42.8-82.8) 04/04/18 07:00 Lymphocytes % 16.2 % (8-40) D 04/04/18 07:00 Monocytes % 8.8 % (3.8-10.2) 04/04/18 07:00 Eosinophils % 1.0 % (0-4.5) 04/04/18 07:00 Basophils % 0.5 % (0-2.0) 04/04/18 07:00 Nucleated RBC % 0 % (0-0) 04/04/18 07:00 Problem List - Problems (1) delivery delivered Code(s): O82 - ENCOUNTER FOR DELIVERY WITHOUT INDICATION Assessment/Plan 27 y/o POD#2 s/p repeat delivery, doing well AFVSS Hgb 10.0 s/p delivery, recheck in a.m. regular diet PO pain meds routine care
--- NOTE | 2018-04-05 20:43 | DS ---
Physical Exam-RN REFERRAL Vital Signs: Vital Signs Temperature 98.2 F 04/05/18 14:39 Pulse Rate 62 04/05/18 14:39 Respiratory Rate 20 04/05/18 14:39 Blood Pressure 140/73 04/05/18 14:39 O2 Sat by Pulse Oximetry (%) 100 04/03/18 12:38 Constitutional: Yes: Well Nourished, No Distress, Calm HENT: Yes: Atraumatic Neck: Yes: Supple Cardiovascular: Yes: Regular Rate and Rhythm Respiratory: Yes: Regular Gastrointestinal: Yes: Normal Bowel Sounds Edema: No Wound/Incision: Yes: Clean/Dry, Well Approximated, Steri Strips Neurological: Yes: Alert, Oriented Psychiatric: Yes: Alert, Oriented Labs: CBC, BMP 04/04/18 07:00 04/03/18 08:50 Delivery - Delivery Section: Repeat, Low Flap Transverse Type of Anesthesia: Spinal Episiotomy/Laceration: None EBL (cc): 700 Delivery, Single - Stages of Labor Date 1st Stage Initiatied: 04/03/18 Time 1st Stage Initiated: 06:50 Date of Delivery: 04/03/18 Time of Delivery: 10:05 Time Placenta Delivered: 10:06 Placenta: Yes: Manual Removal - Condition of Lab Instructor/Educational Sign Language Interpreter Present: Yes Name: Malena Bae Infant Gender: Male Weight: 6 lb 1 oz Position: OT Total Hours ROM (Hrs/Mins): 3hrs 16min - 1 Minute Total Score: 4 5 Minutes Total Score: 7 - Recluse Feeding Plan Initial Plan: Elected not to breastfeed exclusively throughout hospitalization Discharge Summary Reason For Visit: LABOR ADMISSION Current Active Problems 37 weeks gestation of (Acute) delivery delivered (Acute) premature rupture of membranes, onset of labor within 24 hours of rupture, first trimester (Acute) Previous delivery affecting , antepartum (Acute) Procedures: Principal: Repeat delivery. Hospital Course: Pt admitted on 04/03/18 with rupture of membranes. Had history of prior deliveries. Pt underwent repeat delivery without complication. Pt had uncomplicated post recovery and was discharged home on post op day 3. Condition: Good - Instructions Diet, Activity, Other Instructions: Physical activity Resume your normal everyday activity as tolerated no heavy lifting or exercise until seen by your surgeon. You may walk unlimited amounts and climb stairs. You may resume driving the car when you feel safe and comfortable behind the wheel. No sexual activity as instructed. Wound care If there are tapes on the skin leave them in place. They will fall off in the next 7 to 10 days. Do Not Peel them off. You may shower the day after surgery. If there are tapes present on the skin, you may shower over them. Diet There are no dietary restrictions. Eat healthy, high-fiber foods. Drink 6 to 8 glasses of liquid each day. This will assist in keeping your bowels regular. Pain management You may take Tylenol or Ibuprofen (for example, Motrin, Advil etc.) as needed for pain. If you need anything stronger for pain please let your doctor know. Call MD for any of the following: Severe pain not relieved by medication Fever of 101 or higher Excessive bleeding or drainage on dressing Inability to urinate Referrals: Charlotte Rodríguez MD [Staff Physician] - 1 Week Disposition: HOME - Home Medications Comprehensive Discharge Medication List: Ambulatory Orders Pnv No.121/Iron/Folic Acid [ Multivitamin Tablet] 1 each PO DAILY Ferrous Sulfate [Feosol] 325 mg PO BID #60 tablet 04/05/18 Ibuprofen [Motrin -] 600 mg PO QID PRN #28 tablet 04/05/18
[2018-04-06] MEDS: ACETAMINOPHEN 325 MG TABLET (FP) PO PRN ×2 (01:56→10:04)
[2018-04-06] MEDS: SIMETHICONE 80 MG TAB.CHEW (FP) PO PRN (01:56)
[2018-04-06] MEDS: IBUPROFEN 600 MG TABLET (FP) PO PRN ×2 (01:56→10:03)
[2018-04-06 07:33] VITALS: BP 124/82; PULSE 70; TEMP 98.8
[2018-04-06 08:17] LABS: BASO % 0.5 % (0-2.0); EOS % 2.9 % (0-4.5); HEMATOCRIT 29.8 % (32.4-45.2); HEMOGLOBIN 9.7 GM/dL (10.7-15.3); LYMPH % 27.7 % (8-40); MCH 27.2 pg (25.7-33.7); MCHC 32.4 g/dl (32.0-36.0); MEAN CELL VOLUME 83.7 fl (80-96); MEAN PLT VOLUME 9.4 fl (7.5-11.1); NEUT % 58.9 % (42.8-82.8); PLATELET COUNT 257 K/MM3 (134-434); RBC 3.56 M/mm3 (3.60-5.2); RDW 14.6 % (11.6-15.6); WHITE BLOOD COUNT 5.8 K/mm3 (4.0-10.0)
[2018-04-06] MEDS: PRENATAL VITAMINS W/ FOLIC ACID TABLET (FP) PO SCH (10:03)
[2018-04-06] MEDS: FERROUS SO4 325 MG TABLET (FP) PO SCH (10:03)
--- NOTE | 2018-04-14 15:52 | PATH ---
Surgical Pathology Report Patient Name: CHELLE PRETTY [facility] [place]. Rec. #: [id number] /Age/Gender: 1990 (Age: 27) / F Account: [id number] Location: [facility] OBS/ED TECH Taken: 04/03/2018 Received: 04/04/2018 Reported: 04/14/2018 Physicians: Charlotte Rodríguez M.D. Specimen(s) Received PLACENTA Clinical History , 37 weeks. Previous K-hhskbxh-xecjqfws membranes History of HSV 2, IAB x1, SPAB x1 Obesity Final Diagnosis PLACENTA: THIRD TRIMESTER PLACENTA WITH FOCAL ACUTE CHORIOAMNIONITIS. TRIVASCULAR CORD. Electronically Signed Jesse Das M.D. Gross Description The specimen is received fresh labeled placenta and is a 432 gram, 16.0 x 12.0 x 3.3 cm. placenta with attached membranes and umbilical cord. The attached membranes are hussein, translucent with focal opacities and insert marginally. The umbilical cord measures 12.5 cm. in length and averages 1.2 cm. in diameter. The cord inserts eccentrically, 3.5 cm. to the nearest margin. No true knots or strictures are identified. Cut surface of the umbilical cord reveals 3 vessels. The surface is barraza-blue with minimal fibrin deposition and appropriate caliber vessels. The maternal surface is red-brown with focal defects. Sectioning reveals red-brown, spongy parenchyma. No lesions are identified. Cpc sections are submitted in three cassettes as follows: 1- membrane rolls and umbilical cord; 2-3- full thickness sections of placenta. 04/11/2018 [facility]04/11/2018
== END 2018-04-06 10:45 | disposition home or self-care (01) | DRG 540 ==
LOC: JLDR 08:00 → J3W 12:00
PROVIDERS: ADMIT Obstetrics & Gynecology; ATTEND Obstetrics & Gynecology
PROC: 10D00Z1 Extraction of Products of Conception, Low, Open Approach (ICD-10-PCS; principal; 2018-04-03)
DX: O42.92 Full-term premature rupture of membranes, unspecified as to length of time between rupture and onset of labor (principal); O34.219 Maternal care for unspecified type scar from previous cesarean delivery; O99.214 Obesity complicating childbirth; E66.01 Morbid (severe) obesity due to excess calories; Z3A.37 37 weeks gestation of pregnancy; Z37.0 Single live birth; Z68.41 Body mass index [BMI] 40.0-44.9, adult
CPT/HCPCS: 36415; 36600; 71046-TC-FY; 80048; 82803; 85025; 85610; 85730; 86593; 86850; 86900; 86901; 87389; 88307-TC

== ENCOUNTER 2018-04-10 08:14 | Inpatient (IN) | payer OTHER ==
[2018-04-10] MEDS ORDERED: LORazepam 2 MG/ML SDV VIAL ONE (08:30)
[2018-04-10] MEDS ORDERED: ACETAMINOPHEN INJECTION 100 ML IVPB ONE (08:46)
[2018-04-10] MEDS ORDERED: MAGNESIUM SULF 50% (8.12 MEQ/2 ML-1 GM VIAL) IVPB ONE ×3 (08:51→09:01)
--- NOTE | 2018-04-10 08:52 | PDOC ---
History of Present Illness - General Chief Complaint: Seizure Stated Complaint: SEIZURE - History of Present Illness Initial Comments: Zach Whiteside is a 27yo woman one week ( delivery) who presents by ambulance after being found on the street near her car. She was noted to be confused with urinary incontinence and was presumed to have had a seizure. By the time she arrived in the ED, Ms Whiteside was somewhat resonsive and able to give her name, age, and report that she was in a hospital. She denied any substance use, possibility of , cardiac history, seizure history, or medication use at home. She stated that she had been on the way to the hospital because she felt "dizzy" but was unable to provide any additional details. Per EMS, she had been "very postictal" prior to her arrival, and they had no information. Shortly afterward, Ms Whiteside had another witnessed seizure in the ED. She has since been postictal and unable to respond. However, per chart review, she was recently admitted for a delivery at 37 weeks. There was no record of HTN or other complications during her . Past History - Past Medical History Allergies/Adverse Reactions: Allergies Allergy/AdvReac Type Severity Reaction Status Date / Time No Known Allergies Allergy Verified 04/03/18 11:56 Home Medications: Ambulatory Orders NK [No Known Home Medication] 04/10/18 Asthma: No Cancer: No Cardiac Disorders: No CVA: No COPD: No DVT: No Dementia: No Diabetes: No HTN: No Seizures: No Thyroid Disease: No - Immunization History Immunization Up to Date: Yes - Suicide/Smoking/Psychosocial Hx Smoking History: Unknown if ever smoked Have you smoked in the past 12 months: Yes Number of Cigarettes Smoked Daily: 5 Information on smoking cessation initiated: No Hx Alcohol Use: No Drug/Substance Use Hx: No Substance Use Type: None Hx Substance Use Treatment: No Review of Systems - Review of Systems Comments:: Could not obtain. Patient post-ictal, poorly responsive *Physical Exam - Vital Signs Last Vital Signs Temp Pulse Resp BP Pulse Ox 97.5 F L 91 H 20 177/104 H 96 04/10/18 08:20 04/10/18 08:20 04/10/18 08:20 04/10/18 08:20 04/10/18 08:20 - Physical Exam Comments: General: Confused, morbidly obese woman, appears stated age HEENT: Pupils ~1mm and equal, EOMI, MMM, voice normal, normal neck ROM, no LAD Cards: Tachycardic, irregularly irregular, no rubs or murmurs Pulm: Comfortable on room air, clear to auscultation bilaterally Abd: Soft, nontender, nondistended, obese Ext: Atraumatic. Pitting pedal edema b/l. Moves all extremities equally Vasc: Extremities WWP. Skin: Normal color, no rashes or lesions Neuro: Awake, appears post-ictal, able to give appropriate short answers, oriented to self and "hospital." Motor/sensory grossly intact and symmetric ED Treatment Course - LABORATORY CBC & Chemistry Diagram: 04/10/18 08:44 04/10/18 08:44 - RADIOLOGY Radiology Studies Ordered: Category Date Time Status HEAD CT WITHOUT CONTRAST [CT] Stat CT Scan 04/10/18 08:29 Ordered CXRPORT [CHEST X-RAY PORTABLE*] [RAD] Stat Radiology 04/10/18 08:26 Ordered Medical Decision Making - Medical Decision Making 04/10/18 08:52 Zach Whiteside is a 27yo woman approximately 1 week who presents with a presumed seizure, found on the street near her car, [place]. She had a second witnessed seizure in the ED. - 2mg ativan for seizure - Had been postictal initially, then starting to answer questions, oreitned x2, prior to second seizure. Now unable to respond to questions. - AMS/neuro workup had been initially ordered given new onset seizures. CBC, CMP , mag, phos, EKG, CXR, CT head, UA, UCx, tox, salicylate, acetaminophen, urine preg, serum preg - Chart reviewed; one week from a delivery at 37 weeks. C- section due to previous c-sections, uterine surgery, laparotomy. No note of hypertension or complications in chart - Page to OB - Ponce placed. Had witnessed 3x void, still with immediate return of clear urine - Initially HTN to 177/104. Repeat 137/100's. Noted to be in a-fib with tachycardia to 150's. No record of previous a-fib - Per patient, no medical history but was still postictal though partially responsive - 2g IV magnesium for suspected eclampsia - IV acetaminophen as pt feels warm to touch Patient seizing 04/10/18 09:13 - CT head completed. Viewed while obtaining CT, no obvious bleed noted. Read pending - 2g additional magnesium plus mag drip ordered for suspected eclampsia - Labs all pending - Continues to drain copious, nearly clear urine in ponce - Accepted to ICU. 2nd call placed to OB 04/10/18 10:02 - Labs reviewed. CBC unremarkable. Chemistry notable for lactate 6.1 - Dr Rodríguez saw patient in the ED, will admit to her service - Bedside echo confirms irregular rhythm but apparently normal EF. - Labetolol IV ordered for HTN - Diltazem per Dr Monge for tachycardia, a-fib 04/10/18 10:44 - CT head without acute pathology - Repeat EKG with HR 98, still in a-fib after receiving diltiazem - Waiting for ICU bed Seen with Dr Monge. Ayde Thurman PGY1 04/10/18 17:45 *DC/Admit/Observation/Transfer Diagnosis at time of Disposition: eclampsia - Discharge Dispostion Condition at time of disposition: Critical Decision to Admit order: Yes - Referrals - Patient Instructions - Post Discharge Activity
[2018-04-10] MEDS ORDERED: MAGNESIUM 1GM/D5W - 2 GM/200 ML IVPB IVPB ONE ×2 (08:53→10:08)
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
[2018-04-10 09:14] LABS: BASO % 1.3 % (0-2.0); EOS % 2.2 % (0-4.5); HEMATOCRIT 36.2 % (32.4-45.2); HEMOGLOBIN 12.3 GM/dL (10.7-15.3); LYMPH % 30.6 % (8-40); MCH 27.9 pg (25.7-33.7); MEAN CELL VOLUME 82.1 fl (80-96); MEAN PLT VOLUME 9.2 fl (7.5-11.1); MONO % 4.7 % (3.8-10.2); NEUT % 61.2 % (42.8-82.8); PLATELET COUNT 393 K/MM3 (134-434); RBC 4.41 M/mm3 (3.60-5.2); RDW 14.8 % (11.6-15.6); WHITE BLOOD COUNT 6.4 K/mm3 (4.0-10.0)
[2018-04-10] MEDS ORDERED: LABETALOL HCL 5 MG/1 ML (100MG/20 ML VIAL) IVPUSH ONE (09:35)
[2018-04-10 09:36] LABS: CO2 18 mmol/L (21-32); CREATININE 0.9 mg/dL (0.55-1.3)
[2018-04-10] MEDS ORDERED: dilTIAZem HCL 50 MG/10 ML - 10 ML VIAL IVPUSH ONE (09:43)
[2018-04-10] MEDS ORDERED: LABETALOL HCL 200 MG TABLET (FP) PO PRN ×2 (09:45→11:03)
--- NOTE | 2018-04-10 09:47 | HP ---
Past Medical History - Primary Care Physician PCP:: Charlotte Rodríguez - Admission Chief Complaint: Eclampsia. Hypertension History of Present Illness: 27 yo P3 hx of section done by myself. History Source: Patient - Past Medical History ...Para: 3 - Past Surgical History Past Surgical History: Yes: Hx Myomectomy: No Hx Transabdominal Cerclage: No - Smoking History Smoking history: Unknown if ever smoked Have you smoked in the past 12 months: Yes Aproximately how many cigarettes per day: 5 - Alcohol/Substance Use Hx Alcohol Use: No History of Substance Use: reports: None Home Medications - Allergies Allergies/Adverse Reactions: Allergies Allergy/AdvReac Type Severity Reaction Status Date / Time No Known Allergies Allergy Verified 04/03/18 11:56 - Home Medications Home Medications: Ambulatory Orders Pnv No.121/Iron/Folic Acid [ Multivitamin Tablet] 1 each PO DAILY Ferrous Sulfate [Feosol] 325 mg PO BID #60 tablet 04/05/18 Ibuprofen [Motrin -] 600 mg PO QID PRN #28 tablet 04/05/18 Review of Systems Unable to obtain ROS, reason: pt is postectal Physical Exam - Maternity Vital Signs: Vital Signs Temperature 99.3 F 04/10/18 08:55 Pulse Rate 91 H 04/10/18 08:20 Respiratory Rate 20 04/10/18 08:20 Blood Pressure 177/104 H 04/10/18 08:20 O2 Sat by Pulse Oximetry (%) 96 04/10/18 08:20 Constitutional: Yes: Well Nourished, No Distress, Obese, Other (postectal) Neck: Yes: WNL - Physical Exam Musculoskeletal: Yes: WNL Extremities: Yes: WNL Edema: Yes Edema: LLE: 1+, RLE: 1+ - Labs Lab Results: CBC, BMP 04/10/18 08:44 04/10/18 08:44 Hemorrhage Risk Assessment - Risk Factors Risk Score: 3 Risk Level: High Risk Problem List - Problems (1) eclampsia Code(s): O15.2 - ECLAMPSIA COMPLICATING THE PUERPERIUM (2) section Code(s): Z98.89 - OTHER SPECIFIED POSTPROCEDURAL STATES * DO NOT USE * Assessment/Plan Eclamptic Seizure Hx Section x 3 Plan ICU admisssion consult ICU consult renal consult renal MgSO4 2gm/hr MgSO4 levels consult USg of liver if in pain
[2018-04-10] MEDS ORDERED: ACETAMINOPHEN 1000 MG/100 ML VIAL (NON FORMULARY) IVPB ONE (09:49)
[2018-04-10] MEDS: MAGNESIUM SULFATE 20GM/500ML - 20 GM/500 ML INFUS.BAG IVPB SCH (09:55)
[2018-04-10] MEDS ORDERED: dilTIAZem HCL 50 MG/10 ML - 10 ML VIAL ONE (09:57)
[2018-04-10 10:12] LABS: ALK PHOS 151 U/L (45-117); ANION GAP 16 MMOL/L (8-16); BILIRUBIN,TOTAL 0.5 mg/dL (0.2-1); BLOOD UREA NITROGEN 14 mg/dL (7-18); CALCIUM 8.6 mg/dL (8.5-10.1); CHLORIDE 107 mmol/L (98-107); GLUCOSE,RANDOM 115 mg/dL (74-106); LDH 521 U/L (84-246); MAGNESIUM 1.7 mg/dL (1.8-2.4); PHOSPHOROUS 3.8 mg/dL (2.5-4.9); POTASSIUM 4.9 mmol/L (3.5-5.1); SGOT/AST 50 U/L (15-37); SGPT/ALT 35 U/L (13-61); SODIUM 140 mmol/L (136-145); TOT PROT 7.1 g/dl (6.4-8.2)
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
[2018-04-10 11:19] LABS: COCAINE, UR NEGATIVE ng/ml (CUTOFF=300); METHADONE, UR NEGATIVE ng/ml (CUTOFF=300); OPIATES, URI NEGATIVE ng/ml (CUTOFF=300); PHENCYCLIDINE,URINE NEGATIVE ng/ml (CUTOFF=25); URINE AMPHETAMINES NEGATIVE ng/ml (CUTOFF=500); URINE BARBITURATES NEGATIVE ng/ml (CUTOFF=200); URINE BENZODIAZEPINES NEGATIVE ng/ml (CUTOFF=200)
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
[2018-04-10 14:51] LABS: URINE APPEARANCE CLEAR; URINE BILIRUBIN NEGATIVE (<2.0 mg/dL); URINE COLOR COLORLESS; URINE GLUCOSE (UA) NEGATIVE (NEGATIVE); URINE KETONE 1+ (NEGATIVE); URINE LEUK ESTERASE NEGATIVE (NEGATIVE); URINE NITRITE NEGATIVE (NEGATIVE); URINE PROTEIN 1+ (NEGATIVE); URINE UROBILINOGEN NEGATIVE mg/dL (0.2-1.0)
[2018-04-10 15:28] LABS: URINE MUCUS RARE
[2018-04-10 16:48] VITALS: BMI 38.5
[2018-04-10] MEDS ORDERED: ACETAMINOPHEN 1000 MG/100 ML VIAL (NON FORMULARY) IVPB PRN (16:53)
[2018-04-10 19:41] LABS: BASO % 0.9 % (0-2.0); EOS % 0.9 % (0-4.5); HEMATOCRIT 38.5 % (32.4-45.2); HEMOGLOBIN 13.4 GM/dL (10.7-15.3); LYMPH % 15.6 % (8-40); MCHC 34.8 g/dl (32.0-36.0); MEAN CELL VOLUME 80.6 fl (80-96); MEAN PLT VOLUME 8.9 fl (7.5-11.1); MONO % 5.4 % (3.8-10.2); NEUT % 77.2 % (42.8-82.8); PLATELET COUNT 428 K/MM3 (134-434); RBC 4.77 M/mm3 (3.60-5.2); RDW 14.4 % (11.6-15.6); WHITE BLOOD COUNT 9.7 K/mm3 (4.0-10.0)
[2018-04-10 20:11] LABS: N-TERMINAL BNP 1149.5 pg/ml (5-125)
[2018-04-10 20:22] LABS: INR 1.05 (0.83-1.09); PROTHROMBIN TIME (PATIENT) 12.4 SEC (9.7-13.0)
[2018-04-10 20:25] LABS: ACTIVATED PTT 18.7 SECONDS (25.2-36.5)
[2018-04-11 00:42] LABS: CALCIUM 7.8 mg/dL (8.5-10.1); MAGNESIUM 6.2 mg/dL (1.8-2.4)
[2018-04-11 06:11] LABS: BASO % 0.5 % (0-2.0); HEMATOCRIT 37.4 % (32.4-45.2); HEMOGLOBIN 12.2 GM/dL (10.7-15.3); MCH 26.8 pg (25.7-33.7); MCHC 32.8 g/dl (32.0-36.0); MEAN CELL VOLUME 81.7 fl (80-96); MEAN PLT VOLUME 8.4 fl (7.5-11.1); MONO % 5.6 % (3.8-10.2); NEUT % 71.9 % (42.8-82.8); PLATELET COUNT 365 K/MM3 (134-434); RBC 4.57 M/mm3 (3.60-5.2); RDW 14.5 % (11.6-15.6); WHITE BLOOD COUNT 7.2 K/mm3 (4.0-10.0)
[2018-04-11] MEDS: MAGNESIUM SULFATE 20GM/500ML - 20 GM/500 ML INFUS.BAG IVPB SCH ×2 (06:25→09:15)
[2018-04-11 06:33] LABS: ANION GAP 10 MMOL/L (8-16); BLOOD UREA NITROGEN 10 mg/dL (7-18); CHLORIDE 104 mmol/L (98-107); CO2 24 mmol/L (21-32); CREATININE 0.7 mg/dL (0.55-1.3); GLUCOSE,RANDOM 80 mg/dL (74-106); POTASSIUM 3.1 mmol/L (3.5-5.1); SODIUM 139 mmol/L (136-145)
[2018-04-11 06:34] LABS: ALBUMIN 2.8 g/dl (3.4-5.0); ALK PHOS 136 U/L (45-117); BILIRUBIN,TOTAL 0.4 mg/dL (0.2-1); CALCIUM 7.6 mg/dL (8.5-10.1); MAGNESIUM 6.3 mg/dL (1.8-2.4); PHOSPHOROUS 4.1 mg/dL (2.5-4.9); SGOT/AST 21 U/L (15-37); SGPT/ALT 29 U/L (13-61); TOT PROT 6.1 g/dl (6.4-8.2)
[2018-04-11] MEDS ORDERED: POTASSIUM CHLORIDE ORAL LIQUID 20 MEQ/15 ML PO ONE (07:30)
[2018-04-11] MEDS: KCL 10 MEQ IVPB 10 MEQ/100 ML INFUS.BAG IVPB SCH ×2 (08:53→10:15)
--- NOTE | 2018-04-11 10:05 | CONSULT ---
Consult Consult Specialty:: Nephrology ( Pasquale/ Joshua) Reason for Consultation:: Post Hypertension - History of Present Illness Chief Complaint: 27 yof with recent for premature rupture of membranes on 04/03, uneventful post op course d/boo on 04/05, was driving yesterday, when she did not 'feel right', pulled over.She had witnessed seizure , with another episode with EMS on the way to the ED. 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 (yesterday) Pulmonary: No: Asthma, COPD Gastrointestinal: No: Constipation Hepatobiliary: No: Cirrhosis, Cholelithiasis, Cholecystitis, Choledocholithiasis , Hepatitis A, Hepatitis B, Hepatitis C, Other Renal/: No: Renal Inusuff ...: No (had baby 5 days ago) Heme/Onc: No: Anemia, B12 Deficiency, Bleeding Disorder, Cancer, Current Chemotherapy, Current Radiation Therapy, Hemochromatosis, Hypercoaguable State, Myeloproliferative Synd, Sickle Cell Disease, Sickle Cell Trait, Thrombocytopenia, Other Musculoskeletal: No: Bursitis, Chronic low back pain, Hemiparesis, Hemiplegia, Osteoarthritis, Paraplegia, Other ENT: No: Allergic Rhinitis, Sinusitis, Other - Past Surgical History Past Surgical History: Yes: - Alcohol/Substance Use Hx Alcohol Use: No History of Substance Use: reports: None - Smoking History Smoking history: Unknown if ever smoked Have you smoked in the past 12 months: Yes Aproximately how many cigarettes per day: 5 Home Medications - Allergies Allergies/Adverse Reactions: Allergies Allergy/AdvReac Type Severity Reaction Status Date / Time No Known Allergies Allergy Verified 04/03/18 11:56 - Home Medications Home Medications: Ambulatory Orders NK [No Known Home Medication] 04/10/18 Family Disease History - Family Disease History Other Family History: Niece has SLE Review of Systems - Review of Systems Constitutional: reports: Malaise Eyes: denies: Blind Spots, Blurred Vision HENT: denies: No Symptoms Neck: reports: Tenderness Cardiovascular: denies: Chest Pain Respiratory: reports: Cough Gastrointestinal: denies: Nausea, Vomiting Genitourinary: denies: Burning Musculoskeletal: denies: Back Pain Integumentary: denies: Blister, Bruising Neurological: reports: Dizziness, Numbness, Seizure Endocrine: reports: No Symptoms Hematology/Lymphatic: reports: No Symptoms Physical Exam Vital Signs: Vital Signs Temperature 98.6 F 04/11/18 08:00 Pulse Rate 61 04/11/18 09:00 Respiratory Rate 18 04/11/18 09:00 Blood Pressure 132/72 04/11/18 09:00 O2 Sat by Pulse Oximetry (%) 99 04/11/18 09:00 Constitutional: Yes: Well Nourished Eyes: Yes: Conjunctiva Clear HENT: Yes: Normocephalic Neck: Yes: Trachea Midline Cardiovascular: Yes: Regular Rate and Rhythm, S1, S2 Respiratory: Yes: Regular, CTA Bilaterally Gastrointestinal: Yes: Normal Bowel Sounds, Soft Renal/: No: Bladder Distention, CVA Tenderness - Left, CVA Tenderness - Right Musculoskeletal: Yes: Back Pain Edema: Yes Edema: LLE: Trace, RLE: Trace Neurological: Yes: WNL, Alert, Oriented Psychiatric: Yes: WNL, Alert, Oriented Labs: CBC, BMP 04/11/18 05:30 04/11/18 05:30 Problem List - Problems (1) hypertension Code(s): O16.5 - UNSPECIFIED MATERNAL HYPERTENSION, COMP THE PUERPERIUM (2) eclampsia Code(s): O15.2 - ECLAMPSIA COMPLICATING THE PUERPERIUM (3) section Code(s): Z98.89 - OTHER SPECIFIED POSTPROCEDURAL STATES * DO NOT USE * Assessment/Plan 27 yof with recent for premature rupture of membranes on 04/03, uneventful post op course d/boo on 04/05, was driving yesterday, when she did not 'feel right', pulled over.She had witnessed seizure, with another episode with EMS on the way to the ED. The patient had emergency treatments in the Er to control the seizure and the BP Post Hypertension. well controlled on the current regimen. Seizure disorder...generalized tonic clonic. ? Post ecclampsia. Was on Mag Sulphate infusion. Just discontinued. Plan: Will continue the current regimen. Labetalol PRN. Will order BILLY, Anticardiolipin AB/Antiphosphilipid AB Will follow closely with you. Thank you. Yarelis Giordano MD
--- NOTE | 2018-04-11 10:07 | EKG ---
Test Reason : Blood Pressure : / mmHG Vent. Rate : 109 BPM Atrial Rate : 133 BPM P-R Int : 000 ms QRS Dur : 090 ms QT Int : 328 ms P-R-T Axes : 000 089 039 degrees QTc Int : 441 ms ATRIAL FIBRILLATION WITH RAPID VENTRICULAR RESPONSE WITH PREMATURE VENTRICULAR OR ABERRANTLY CONDUCTED COMPLEXES ABNORMAL ECG NO PREVIOUS ECGS AVAILABLE Confirmed by JOSE EUDARDO NGUYEN MD ([id number]) on 04/11/2018 10:06:45 AM Referred By: Confirmed By:JOSE EDUARDO NGUYEN MD
--- NOTE | 2018-04-11 10:26 | PN ---
Physical Exam: SUBJECTIVE: Patient seen and examined Alert, no acute distress, desires to go home. OBJECTIVE: Vital Signs Period Temp Pulse Resp BP Sys/Serrano Pulse Ox Last 24 Hr 98.2 F-98.9 F 55-115 16-21 116-150/65-92 97-99 GENERAL: The patient is awake, alert, and fully oriented, in no acute distress. HEAD: Normal with no signs of trauma. EYES: extraocular movements intact, sclera anicteric, conjunctiva clear. No ptosis. ENT: moist mucous membranes. NECK: Trachea midline LUNGS: Breath sounds equal, clear to auscultation bilaterally, no wheezes, no crackles, no accessory muscle use. HEART: Regular rate and rhythm, S1, S2 without murmur, rub or gallop. ABDOMEN: Soft, nontender, nondistended, normoactive bowel sounds, no guarding, no rebound, no hepatosplenomegaly, no masses. EXTREMITIES: 2+ pulses, warm, well-perfused, no edema. NEUROLOGICAL: Cranial nerves II through XII grossly intact. Normal speech, gait not observed, upper extremity DTRs intact, faint DTR on lower extremities PSYCH: Normal mood, normal affect. SKIN: Warm, dry, normal turgor, no rashes or lesions noted Laboratory Results - last 24 hr 04/10/18 04/10/18 04/10/18 08:44 09:53 10:00 WBC RBC Hgb Hct MCV MCH MCHC RDW Plt Count MPV Absolute Neuts (auto) Neutrophils % Lymphocytes % Monocytes % Eosinophils % Basophils % Nucleated RBC % PT with INR INR PTT (Actin FS) Fibrinogen Cancelled D-Dimer Cancelled Sodium Potassium Chloride Carbon Dioxide Anion Gap BUN Creatinine Creat Clearance w eGFR Random Glucose Lactic Acid Calcium Phosphorus Magnesium Total Bilirubin AST ALT Alkaline Phosphatase Creatine Kinase Index 0.7 CK-MB (CK-2) 1.3 Troponin I B-Natriuretic Peptide Total Protein Albumin TSH Urine Color Urine Appearance Urine pH Ur Specific [place] Urine Protein Urine Glucose (UA) Urine Ketones Urine Blood Urine Nitrite Urine Bilirubin Urine Urobilinogen Ur Leukocyte Esterase Urine WBC (Auto) Urine RBC (Auto) Urine Mucus Opiates Screen Negative Methadone Screen Negative Barbiturate Screen Negative Phencyclidine Screen Negative Ur Amphetamines Screen Negative MDMA (Ecstasy) Screen Negative Benzodiazepines Screen Negative Cocaine Screen Negative U Marijuana (THC) Screen Negative 11/04/10/18 04/10/18 14:30 15:30 15:30 WBC RBC Hgb Hct MCV MCH MCHC RDW Plt Count MPV Absolute Neuts (auto) Neutrophils % Lymphocytes % Monocytes % Eosinophils % Basophils % Nucleated RBC % PT with INR INR PTT (Actin FS) Fibrinogen D-Dimer Sodium Potassium Chloride Carbon Dioxide Anion Gap BUN Creatinine Creat Clearance w eGFR Random Glucose Lactic Acid 0.8 Calcium Phosphorus Magnesium Total Bilirubin AST ALT Alkaline Phosphatase Creatine Kinase Index CK-MB (CK-2) Troponin I 0.08 H B-Natriuretic Peptide Total Protein Albumin TSH Urine Color Colorless Urine Appearance Clear Urine pH 7.0 Ur Specific [place] 1.005 L Urine Protein 1+ H Urine Glucose (UA) Negative Urine Ketones 1+ H Urine Blood Negative Urine Nitrite Negative Urine Bilirubin Negative Urine Urobilinogen Negative Ur Leukocyte Esterase Negative Urine WBC (Auto) 1 Urine RBC (Auto) 1 Urine Mucus Rare Opiates Screen Methadone Screen Barbiturate Screen Phencyclidine Screen Ur Amphetamines Screen MDMA (Ecstasy) Screen Benzodiazepines Screen Cocaine Screen U Marijuana (THC) Screen 04/10/18 04/10/18 04/10/18 15:54 19:00 19:00 WBC 9.7 RBC 4.77 Hgb 13.4 Hct 38.5 MCV 80.6 MCH 28.0 MCHC 34.8 RDW 14.4 Plt Count 428 MPV 8.9 Absolute Neuts (auto) 7.5 Neutrophils % 77.2 D Lymphocytes % 15.6 D Monocytes % 5.4 Eosinophils % 0.9 Basophils % 0.9 Nucleated RBC % 0 PT with INR INR PTT (Actin FS) Fibrinogen D-Dimer 09481 H Sodium Potassium Chloride Carbon Dioxide Anion Gap BUN Creatinine Creat Clearance w eGFR Random Glucose Lactic Acid Calcium Phosphorus Magnesium 5.2 H Total Bilirubin AST ALT Alkaline Phosphatase Creatine Kinase Index CK-MB (CK-2) Troponin I B-Natriuretic Peptide Total Protein Albumin TSH Urine Color Urine Appearance Urine pH Ur Specific [place] Urine Protein Urine Glucose (UA) Urine Ketones Urine Blood Urine Nitrite Urine Bilirubin Urine Urobilinogen Ur Leukocyte Esterase Urine WBC (Auto) Urine RBC (Auto) Urine Mucus Opiates Screen Methadone Screen Barbiturate Screen Phencyclidine Screen Ur Amphetamines Screen MDMA (Ecstasy) Screen Benzodiazepines Screen Cocaine Screen U Marijuana (THC) Screen 04/10/18 04/10/18 04/10/18 19:00 19:00 19:00 WBC RBC Hgb Hct MCV MCH MCHC RDW Plt Count MPV Absolute Neuts (auto) Neutrophils % Lymphocytes % Monocytes % Eosinophils % Basophils % Nucleated RBC % PT with INR 12.40 INR 1.05 PTT (Actin FS) 18.7 L Fibrinogen 234.0 L D-Dimer Sodium Potassium Chloride Carbon Dioxide Anion Gap BUN Creatinine Creat Clearance w eGFR Random Glucose Lactic Acid Calcium Phosphorus Magnesium Total Bilirubin AST ALT Alkaline Phosphatase Creatine Kinase Index CK-MB (CK-2) Troponin I 0.06 H B-Natriuretic Peptide 1149.5 H Total Protein Albumin TSH 0.97 Urine Color Urine Appearance Urine pH Ur Specific [place] Urine Protein Urine Glucose (UA) Urine Ketones Urine Blood Urine Nitrite Urine Bilirubin Urine Urobilinogen Ur Leukocyte Esterase Urine WBC (Auto) Urine RBC (Auto) Urine Mucus Opiates Screen Methadone Screen Barbiturate Screen Phencyclidine Screen Ur Amphetamines Screen MDMA (Ecstasy) Screen Benzodiazepines Screen Cocaine Screen U Marijuana (THC) Screen 04/11/18 04/11/18 04/11/18 00:05 05:30 05:30 WBC 7.2 RBC 4.57 Hgb 12.2 Hct 37.4 MCV 81.7 MCH 26.8 MCHC 32.8 RDW 14.5 Plt Count 365 MPV 8.4 Absolute Neuts (auto) 5.2 Neutrophils % 71.9 Lymphocytes % 20.0 D Monocytes % 5.6 Eosinophils % 2.0 D Basophils % 0.5 Nucleated RBC % 0 PT with INR INR PTT (Actin FS) Fibrinogen D-Dimer Sodium 139 Potassium 3.1 L Chloride 104 Carbon Dioxide 24 Anion Gap 10 BUN 10 Creatinine 0.7 Creat Clearance w eGFR > 60 Random Glucose 80 Lactic Acid Calcium 7.8 L 7.6 L Phosphorus 4.1 Magnesium 6.2 H 6.3 H Total Bilirubin 0.4 AST 21 ALT 29 Alkaline Phosphatase 136 H Creatine Kinase Index CK-MB (CK-2) Troponin I B-Natriuretic Peptide Total Protein 6.1 L Albumin 2.8 L TSH Urine Color Urine Appearance Urine pH Ur Specific [place] Urine Protein Urine Glucose (UA) Urine Ketones Urine Blood Urine Nitrite Urine Bilirubin Urine Urobilinogen Ur Leukocyte Esterase Urine WBC (Auto) Urine RBC (Auto) Urine Mucus Opiates Screen Methadone Screen Barbiturate Screen Phencyclidine Screen Ur Amphetamines Screen MDMA (Ecstasy) Screen Benzodiazepines Screen Cocaine Screen U Marijuana (THC) Screen 04/11/18 09:20 WBC RBC Hgb Hct MCV MCH MCHC RDW Plt Count MPV Absolute Neuts (auto) Neutrophils % Lymphocytes % Monocytes % Eosinophils % Basophils % Nucleated RBC % PT with INR INR PTT (Actin FS) Fibrinogen D-Dimer Sodium Potassium Chloride Carbon Dioxide Anion Gap BUN Creatinine Creat Clearance w eGFR Random Glucose Lactic Acid 0.5 Calcium Phosphorus Magnesium Total Bilirubin AST ALT Alkaline Phosphatase Creatine Kinase Index CK-MB (CK-2) Troponin I B-Natriuretic Peptide Total Protein Albumin TSH Urine Color Urine Appearance Urine pH Ur Specific [place] Urine Protein Urine Glucose (UA) Urine Ketones Urine Blood Urine Nitrite Urine Bilirubin Urine Urobilinogen Ur Leukocyte Esterase Urine WBC (Auto) Urine RBC (Auto) Urine Mucus Opiates Screen Methadone Screen Barbiturate Screen Phencyclidine Screen Ur Amphetamines Screen MDMA (Ecstasy) Screen Benzodiazepines Screen Cocaine Screen U Marijuana (THC) Screen Active Medications Generic Name Dose Route Start Last Admin Trade Name Freq PRN Reason Stop Dose Admin Acetaminophen 1,000 mg 04/10/18 16:53 04/10/18 19:17 Ofirmev Injection - IVPB 1,000 mg Q6H PRN Administration PAIN LEVEL 6-10 Potassium Chloride 10 meq in 100 mls @ 100 mls/hr 04/11/18 08:45 04/11/18 10: 15 Potassium Chloride 10 Meq Premix Ivpb - IVPB 04/11/18 10:44 100 mls/hr Q60M SOLEDAD Administration Labetalol HCl 200 mg 04/10/18 11:03 Normodyne - PO Q6H PRN HYPERTENSION Multivit/Folic Acid/Iron 1 tab 04/11/18 10:00 Vitamins (Sjr) - PO DAILY SOLEDAD ASSESSMENT/PLAN: 27 yof 5 days post at 37 weeks for premature ruptured membranes with headache, swelling in the legs, HTN of 177/104 and 2 witnessed seizures on presentation to the ED. Developed Afib w/RVR, cardizem 20mg IV given , MgSo4 6mg loaded in ED. In ICU patient in normal sinus rhythm and started on MgSo4 gtt @ 0915 04/10. No prior history of HTN. Family history of epilepsy (sister). Neuro # Eclamptic Seizure - MgSo4 gtt d/c - Keep magnesium 4.8-8.4 - Neuro checks Q2H - OBGYN following (Dr. Rodríguez) - Neuro following (Dr. Espana) Cardiac #A-fib w RVR in ER, HTN - Labetolol PRN - Monitor BP - AC if sustained Afib - ECHO pending Pulm # possible LL infiltrate, r/o PE - Neg duplex of legs - pending repeat CXR ID # r/o infectious precipitation - ucx -neg, blood cx pending F/E/N #Hypokalemia - Trend K, replete as necessary - Regular diet DVT ppx - SCDs Dispo: d/s MgSo4 gtt if no seizures in next 24hrs off drip, transfer Visit type - Emergency Visit Emergency Visit: Yes ED Registration Date: 04/10/18 Care time: The patient presented to the Emergency Department on the above date and was hospitalized for further evaluation of their emergent condition. - New Patient This patient is new to me today: Yes Date on this admission: 04/11/18 - Critical Care Critical Care patient: Yes Total Critical Care Time (in minutes): 35 Critical Care Statement: The care of this patient involved high complexity decision making to prevent further life threatening deterioration of the patient 's condition and/or to evaluate & treat vital organ system(s) failure or risk of failure.
[2018-04-11] MEDS ORDERED: PT OWN MED DRAWER 7, Y5N ONE (10:44)
[2018-04-11] MEDS: PRENATAL VITAMINS W/ FOLIC ACID TABLET (FP) PO SCH (10:45)
--- NOTE | 2018-04-11 10:57 | CON.CARD ---
Cardiology Consult (text) - Consultation Consultation Note: cc: seizure hpi: 27 f no sig pmhx here with seizure. Recently had , had been doing well. Then yesterday found on street near her car thought to have had seizure. Pt does not recall details of episode, only remembers having headache past few days. No cp sob palps dizzy pnd orthopnea. Mild pedal edema during . Brought to ER and had another witnessed seizure. Also with afib and rvr, converted to SR last night. No hx hrt dz. pmh: per hpi psh: c-sections social: +cigs fam: no premature cad, scd ros: per hpi; no nvd gib hematuria dysuria muscle pain meds: Home Medications Medication Instructions Recorded NK [No Known Home Medication] 04/10/18 pe: Vital Signs Period Temp Pulse Resp BP Sys/Serrano Pulse Ox Last 24 Hr 98.2 F-98.9 F 55-115 16-21 116-150/65-92 97-99 nad no jvd rrr s1s2 no mrg cta bl nl eff aaox3 no le e/c/c abd nt nd pos bs no jaundice diaphoresis pos dp pt no carotid bruits Laboratory Last Values WBC 7.2 K/mm3 (4.0-10.0) 04/11/18 05:30 RBC 4.57 M/mm3 (3.60-5.2) 04/11/18 05:30 Hgb 12.2 GM/dL (10.7-15.3) 04/11/18 05:30 Hct 37.4 % (32.4-45.2) 04/11/18 05:30 MCV 81.7 fl (80-96) 04/11/18 05:30 MCH 26.8 pg (25.7-33.7) 04/11/18 05:30 MCHC 32.8 g/dl (32.0-36.0) 04/11/18 05:30 RDW 14.5 % (11.6-15.6) 04/11/18 05:30 Plt Count 365 K/MM3 (134-434) 04/11/18 05:30 MPV 8.4 fl (7.5-11.1) 04/11/18 05:30 Absolute Neuts (auto) 5.2 K/mm3 (1.5-8.0) 04/11/18 05:30 Neutrophils % 71.9 % (42.8-82.8) 04/11/18 05:30 Lymphocytes % 20.0 % (8-40) D 04/11/18 05:30 Monocytes % 5.6 % (3.8-10.2) 04/11/18 05:30 Eosinophils % 2.0 % (0-4.5) D 04/11/18 05:30 Basophils % 0.5 % (0-2.0) 04/11/18 05:30 Nucleated RBC % 0 % (0-0) 04/11/18 05:30 PT with INR 12.40 SEC (9.7-13.0) 04/10/18 19:00 INR 1.05 (0.83-1.09) 04/10/18 19:00 PTT (Actin FS) 18.7 SECONDS (25.2-36.5) L 04/10/18 19:00 Fibrinogen 234.0 mg/dL (238-498) L 04/10/18 19:00 D-Dimer 76805 ng/ml (0-500) H 04/10/18 15:54 Sodium 139 mmol/L (136-145) 04/11/18 05:30 Potassium 3.1 mmol/L (3.5-5.1) L 04/11/18 05:30 Chloride 104 mmol/L (98-107) 04/11/18 05:30 Carbon Dioxide 24 mmol/L (21-32) 04/11/18 05:30 Anion Gap 10 MMOL/L (8-16) 04/11/18 05:30 BUN 10 mg/dL (7-18) 04/11/18 05:30 Creatinine 0.7 mg/dL (0.55-1.3) 04/11/18 05:30 Creat Clearance w eGFR > 60 (>60) 04/11/18 05:30 Random Glucose 80 mg/dL (74-106) 04/11/18 05:30 Lactic Acid 0.5 mmol/L (0.4-2.0) 04/11/18 09:20 Calcium 7.6 mg/dL (8.5-10.1) L 04/11/18 05:30 Phosphorus 4.1 mg/dL (2.5-4.9) 04/11/18 05:30 Magnesium 6.3 mg/dL (1.8-2.4) H 04/11/18 05:30 Total Bilirubin 0.4 mg/dL (0.2-1) 04/11/18 05:30 AST 21 U/L (15-37) 04/11/18 05:30 ALT 29 U/L (13-61) 04/11/18 05:30 Alkaline Phosphatase 136 U/L (45-117) H 04/11/18 05:30 LD Total 521 U/L (84-246) H 04/10/18 08:44 Creatine Kinase 173 IU/L (26-192) 04/10/18 08:44 Creatine Kinase Index 0.7 % (0.0-5.0) 04/10/18 08:44 CK-MB (CK-2) 1.3 ng/mL (0.5-3.6) 04/10/18 08:44 Troponin I 0.06 ng/ml (0.00-0.05) H 04/10/18 19:00 B-Natriuretic Peptide 1149.5 pg/ml (5-125) H 04/10/18 19:00 Total Protein 6.1 g/dl (6.4-8.2) L 04/11/18 05:30 Albumin 2.8 g/dl (3.4-5.0) L 04/11/18 05:30 TSH 0.97 uIU/ml (0.358-3.74) 04/10/18 19:00 Serum , Qual Positive 04/10/18 08:44 Urine Color Colorless 04/10/18 14:30 Urine Appearance Clear 04/10/18 14:30 Urine pH 7.0 (5.0-8.0) 04/10/18 14:30 Ur Specific [place] 1.005 (1.010-1.035) L 04/10/18 14:30 Urine Protein 1+ (NEGATIVE) H 04/10/18 14:30 Urine Glucose (UA) Negative (NEGATIVE) 04/10/18 14:30 Urine Ketones 1+ (NEGATIVE) H 04/10/18 14:30 Urine Blood Negative (NEGATIVE) 04/10/18 14:30 Urine Nitrite Negative (NEGATIVE) 04/10/18 14:30 Urine Bilirubin Negative (<2.0 mg/dL) 04/10/18 14:30 Urine Urobilinogen Negative mg/dL (0.2-1.0) 04/10/18 14:30 Ur Leukocyte Esterase Negative (NEGATIVE) 04/10/18 14:30 Urine WBC (Auto) 1 /hpf (3-5) 04/10/18 14:30 Urine RBC (Auto) 1 /hpf (0-3) 04/10/18 14:30 Urine Mucus Rare 04/10/18 14:30 Salicylates < 1.7 mg/dL (2.8-20) L 04/10/18 08:44 Opiates Screen Negative ng/ml (TTCEYI=224) 04/10/18 09:53 Methadone Screen Negative ng/ml (FVFWRV=238) 04/10/18 09:53 Acetaminophen < 2.0 ug/mL (10-30) L 04/10/18 08:44 Barbiturate Screen Negative ng/ml (HPZAYU=148) 04/10/18 09:53 Phencyclidine Screen Negative ng/ml (CUTOFF=25) 04/10/18 09:53 Ur Amphetamines Screen Negative ng/ml (ZYYWVG=495) 04/10/18 09:53 MDMA (Ecstasy) Screen Negative ng/ml (HVNUBO=513) 04/10/18 09:53 Benzodiazepines Screen Negative ng/ml (RRJQLI=884) 04/10/18 09:53 Cocaine Screen Negative ng/ml (UKLJAR=754) 04/10/18 09:53 U Marijuana (THC) Screen Negative ng/ml (CUTOFF=50) 04/10/18 09:53 Alcohol, Quantitative < 3.0 mg/dL (0.0-5.0) 04/10/18 08:44 cxr: possible chf ecg: afib, vr 130s, nl qtc, no ischemic changes tele: afib last night, now in sr (sb) a/p: 27 f no sig pmhx here with seizure. seizure: - eclamptic seizures -Neuro and renal following afib: -pt with afib and rvr in ER, converted on own to SR -baseline sinus nabeel on tele so would hold off on standing rate control med for now, may have only been an isolated episode afib in setting of electrolyte abnl, seizures. cont tele. -tsh wnl -echo pending -chadsvasc is 1 for female gender only so would not treat with AC, instead would give asa 81. trop elevation: -borderline trop elevation with nl ck, not c/w acs -check echo tob use: -smoking cessation discussed
--- NOTE | 2018-04-11 11:00 | PN ---
Teaching Attending Note Name of Resident: Ngozi Martinez ATTENDING PHYSICIAN STATEMENT I saw and evaluated the patient. I reviewed the resident's note and discussed the case with the resident. I agree with the resident's findings and plan as documented. SUBJECTIVE: Pt seen and examined in the ICU. No further seizure activity or headache. Feels at baseline. Magnesium gtt discontinued. OBJECTIVE: Vital Signs Period Temp Pulse Resp BP Sys/Serrano Pulse Ox Last 24 Hr 98.2 F-98.9 F 55-115 16-21 116-150/65-92 97-99 Intake & Output 04/08/18 04/09/18 04/10/18 04/11/18 23:59 23:59 23:59 23:59 Intake Total 100 600 Output Total 4000 1100 Balance -3900 -500 Weight 108.136 kg 108.6 kg Gen: NAD at rest Heart: RRR Lung: decreased breath sounds at the bases Abd: soft, nontender Ext: no edema CBC, BMP 04/11/18 05:30 04/11/18 05:30 Active Medications Acetaminophen (Ofirmev Injection -) 1,000 mg IVPB Q6H PRN PRN Reason: PAIN LEVEL 6-10 Last Admin: 04/10/18 19:17 Dose: 1,000 mg Labetalol HCl (Normodyne -) 200 mg PO Q6H PRN PRN Reason: HYPERTENSION Multivit/Folic Acid/Iron ( Vitamins (Sjr) -) 1 tab PO DAILY COUNTS INCLUDE 234 BEDS AT THE [facility] Last Admin: 04/11/18 10:45 Dose: 1 tab ASSESSMENT AND PLAN: Post Eclampsia Seizures Lone Atrial fibrillation Recent - monitor off magnesium gtt - BP control - PO as tolerated - DVT prophylaxis - can monitor on floor
[2018-04-11] MEDS ORDERED: ACETAMINOPHEN 325 MG TABLET (FP) PO PRN (14:27)
--- NOTE | 2018-04-11 14:37 | PN ---
Physical Exam: SUBJECTIVE: Patient seen and examined at bedside. patient spontaneously converted back to sinus, this morning. is not having anymore seizures and is no longer hypertensive denies any CP/SOB/N?v fevers or chills. OBJECTIVE: Vital Signs Period Temp Pulse Resp BP Sys/Serrano Pulse Ox Last 24 Hr 98.2 F-99.1 F 55-105 16-21 116-150/62-89 98-99 GENERAL: The patient is awake, alert,. EYES: no scleral icterus NECK: no JVD, no lymphadenopathy. LUNGS:decreased breath sounds at the bases . HEART: Regular rate and rhythm, S1, S2 without murmur, rub or gallop. ABDOMEN: Soft, nontender, nondistended, normoactive bowel sounds, no guarding, no rebound, no hepatosplenomegaly, no masses. EXTREMITIES: 2+ pulses, warm, well-perfused, no edema. NEURO: 5/5 strength, DTR in tact SKIN: Warm, dry, normal turgor, no rashes or lesions noted Laboratory Results - last 24 hr 04/10/18 04/10/18 04/10/18 14:30 15:30 15:30 WBC RBC Hgb Hct MCV MCH MCHC RDW Plt Count MPV Absolute Neuts (auto) Neutrophils % Lymphocytes % Monocytes % Eosinophils % Basophils % Nucleated RBC % PT with INR INR PTT (Actin FS) Fibrinogen D-Dimer Sodium Potassium Chloride Carbon Dioxide Anion Gap BUN Creatinine Creat Clearance w eGFR Random Glucose Lactic Acid 0.8 Calcium Phosphorus Magnesium Total Bilirubin AST ALT Alkaline Phosphatase Troponin I 0.08 H B-Natriuretic Peptide Total Protein Albumin TSH Urine Color Colorless Urine Appearance Clear Urine pH 7.0 Ur Specific [place] 1.005 L Urine Protein 1+ H Urine Glucose (UA) Negative Urine Ketones 1+ H Urine Blood Negative Urine Nitrite Negative Urine Bilirubin Negative Urine Urobilinogen Negative Ur Leukocyte Esterase Negative Urine WBC (Auto) 1 Urine RBC (Auto) 1 Urine Mucus Rare 04/10/18 04/10/18 04/10/18 15:54 19:00 19:00 WBC 9.7 RBC 4.77 Hgb 13.4 Hct 38.5 MCV 80.6 MCH 28.0 MCHC 34.8 RDW 14.4 Plt Count 428 MPV 8.9 Absolute Neuts (auto) 7.5 Neutrophils % 77.2 D Lymphocytes % 15.6 D Monocytes % 5.4 Eosinophils % 0.9 Basophils % 0.9 Nucleated RBC % 0 PT with INR INR PTT (Actin FS) Fibrinogen D-Dimer 66164 H Sodium Potassium Chloride Carbon Dioxide Anion Gap BUN Creatinine Creat Clearance w eGFR Random Glucose Lactic Acid Calcium Phosphorus Magnesium 5.2 H Total Bilirubin AST ALT Alkaline Phosphatase Troponin I B-Natriuretic Peptide Total Protein Albumin TSH Urine Color Urine Appearance Urine pH Ur Specific [place] Urine Protein Urine Glucose (UA) Urine Ketones Urine Blood Urine Nitrite Urine Bilirubin Urine Urobilinogen Ur Leukocyte Esterase Urine WBC (Auto) Urine RBC (Auto) Urine Mucus 04/10/18 04/10/18 04/10/18 19:00 19:00 19:00 WBC RBC Hgb Hct MCV MCH MCHC RDW Plt Count MPV Absolute Neuts (auto) Neutrophils % Lymphocytes % Monocytes % Eosinophils % Basophils % Nucleated RBC % PT with INR 12.40 INR 1.05 PTT (Actin FS) 18.7 L Fibrinogen 234.0 L D-Dimer Sodium Potassium Chloride Carbon Dioxide Anion Gap BUN Creatinine Creat Clearance w eGFR Random Glucose Lactic Acid Calcium Phosphorus Magnesium Total Bilirubin AST ALT Alkaline Phosphatase Troponin I 0.06 H B-Natriuretic Peptide 1149.5 H Total Protein Albumin TSH 0.97 Urine Color Urine Appearance Urine pH Ur Specific [place] Urine Protein Urine Glucose (UA) Urine Ketones Urine Blood Urine Nitrite Urine Bilirubin Urine Urobilinogen Ur Leukocyte Esterase Urine WBC (Auto) Urine RBC (Auto) Urine Mucus 04/11/18 04/11/18 04/11/18 00:05 05:30 05:30 WBC 7.2 RBC 4.57 Hgb 12.2 Hct 37.4 MCV 81.7 MCH 26.8 MCHC 32.8 RDW 14.5 Plt Count 365 MPV 8.4 Absolute Neuts (auto) 5.2 Neutrophils % 71.9 Lymphocytes % 20.0 D Monocytes % 5.6 Eosinophils % 2.0 D Basophils % 0.5 Nucleated RBC % 0 PT with INR INR PTT (Actin FS) Fibrinogen D-Dimer Sodium 139 Potassium 3.1 L Chloride 104 Carbon Dioxide 24 Anion Gap 10 BUN 10 Creatinine 0.7 Creat Clearance w eGFR > 60 Random Glucose 80 Lactic Acid Calcium 7.8 L 7.6 L Phosphorus 4.1 Magnesium 6.2 H 6.3 H Total Bilirubin 0.4 AST 21 ALT 29 Alkaline Phosphatase 136 H Troponin I B-Natriuretic Peptide Total Protein 6.1 L Albumin 2.8 L TSH Urine Color Urine Appearance Urine pH Ur Specific [place] Urine Protein Urine Glucose (UA) Urine Ketones Urine Blood Urine Nitrite Urine Bilirubin Urine Urobilinogen Ur Leukocyte Esterase Urine WBC (Auto) Urine RBC (Auto) Urine Mucus 04/11/18 09:20 WBC RBC Hgb Hct MCV MCH MCHC RDW Plt Count MPV Absolute Neuts (auto) Neutrophils % Lymphocytes % Monocytes % Eosinophils % Basophils % Nucleated RBC % PT with INR INR PTT (Actin FS) Fibrinogen D-Dimer Sodium Potassium Chloride Carbon Dioxide Anion Gap BUN Creatinine Creat Clearance w eGFR Random Glucose Lactic Acid 0.5 Calcium Phosphorus Magnesium Total Bilirubin AST ALT Alkaline Phosphatase Troponin I B-Natriuretic Peptide Total Protein Albumin TSH Urine Color Urine Appearance Urine pH Ur Specific [place] Urine Protein Urine Glucose (UA) Urine Ketones Urine Blood Urine Nitrite Urine Bilirubin Urine Urobilinogen Ur Leukocyte Esterase Urine WBC (Auto) Urine RBC (Auto) Urine Mucus Active Medications Generic Name Dose Route Start Last Admin Trade Name Freq PRN Reason Stop Dose Admin Acetaminophen 650 mg 04/11/18 14:27 Tylenol - PO Q6H PRN PAIN LEVEL 6-10 Labetalol HCl 200 mg 04/10/18 11:03 Normodyne - PO Q6H PRN HYPERTENSION Multivit/Folic Acid/Iron 1 tab 04/11/18 10:00 04/11/18 10:45 Vitamins (Sjr) - PO 1 tab DAILY [facility] Administration ASSESSMENT/PLAN: 27 year old female with S/P one week ago presented to the ED by EMS due to seizure activity was found to have elevated blood pressure and Afib. # Post eclamptic Seizure unlikely HELLP -patient is no longer on the magnesium drip; her most recent Mg was 6.0 -has not had anymore seizure since she was in the ED yesterday -neuro consulted -renal consulted as well: ordered BILLY/antiphospholipd /anticardiolipin # HTN * patient no longer hypertensive * Labteolol PRN * no previous history of HTN , # AFIB -patient spontaneously converted back to sinus early this morning -cardio consulted; no need for AC , just ASA 81 daily -echo done; EF 50-55, mild MR, mild TR, mild pericardial effusion, - # FEN * Oral intake * E: Monitor * N: low sodium diet # Proph * Scds both legs Problem List - Problems (1) eclampsia Code(s): O15.2 - ECLAMPSIA COMPLICATING THE PUERPERIUM Visit type - Emergency Visit Emergency Visit: Yes ED Registration Date: 04/10/18 Care time: The patient presented to the Emergency Department on the above date and was hospitalized for further evaluation of their emergent condition. - New Patient This patient is new to me today: Yes Date on this admission: 04/11/18 - Critical Care Critical Care patient: No
[2018-04-11 15:15] LABS: ANION GAP 9 MMOL/L (8-16); BLOOD UREA NITROGEN 10 mg/dL (7-18); CALCIUM 7.5 mg/dL (8.5-10.1); CHLORIDE 108 mmol/L (98-107); CO2 24 mmol/L (21-32); CREATININE 0.9 mg/dL (0.55-1.3); GLUCOSE,RANDOM 111 mg/dL (74-106); MAGNESIUM 4.1 mg/dL (1.8-2.4); POTASSIUM 3.7 mmol/L (3.5-5.1); SODIUM 140 mmol/L (136-145)
--- NOTE | 2018-04-11 16:03 | ECHO ---
Name: CHELLE PRETTY Exam:Adult Echocardiogram Study Date: 04/11/2018 02:43 PM Age: 27 yrs Reason For Study: AFIB NEW ONSET Height: 67 in Weight: 250 lb BSA: 2.2 m2 MMode/2D Measurements & Calculations IVSd: 0.92 cm Ao root diam: 2.5 cm LVIDd: 4.7 cm LA dimension: 4.0 cm LVIDs: 3.4 cm LVPWd: 0.91 cm EDV(Teich): 99.9 ml ESV(Teich): 48.9 ml Doppler Measurements & Calculations MV E max ed: 75.0 cm/sec TR max ed: 197.6 cm/sec MV A max ed: 27.6 cm/sec TR max P.7 mmHg MV E/A: 2.7 Med Peak E' Ed: 10.6 cm/sec Med E/e': 7.1 Lat Peak E' Ed: 9.6 cm/sec Lat E/e': 7.9 Left Ventricle Left ventricular systolic function is normal. Ejection Fraction = 50-55%. Right Ventricle The right ventricle is normal in size and function. Atria The left atrium is mildly dilated. Right atrial size is normal. Mitral Valve The mitral valve is normal in structure and function. There is no mitral valve stenosis. There is mil d mitral regurgitation. Tricuspid Valve The tricuspid valve is normal in structure and function. There is mild tricuspid regurgitation. Aortic Valve The aortic valve opens well. No hemodynamically significant valvular aortic stenosis. No aortic regur gitation is present. Pulmonic Valve The pulmonic valve is not well seen, but is grossly normal. There is no pulmonic valvular stenosis. T here is no pulmonic valvular regurgitation. Great Vessels The aortic root is normal size. Pericardium/Pleura There is no pericardial effusion. Interpretation Summary Left ventricular systolic function is normal. Ejection Fraction = 50-55%. The left atrium is mildly dilated. There is mild mitral regurgitation. There is mild tricuspid regurgitation. There is no pericardial effusion. MD Aldridge *Paige 04/11/2018 04:02 PM
[2018-04-11] MEDS ORDERED: ASPIRIN COATED 81 MG TABLET.EC PO SCH (17:15)
--- NOTE | 2018-04-11 17:26 | PN ---
Teaching Attending Note Name of Resident: Stephanie St ATTENDING PHYSICIAN STATEMENT I saw and evaluated the patient. I reviewed the resident's note and discussed the case with the resident. I agree with the resident's findings and plan as documented with exceptions below. SUBJECTIVE: Patient seen and examined, no headache, chest pain, palpitations or complaints. Feels well, some vaginal bleeding since surgery that is resolving. Feels well. OBJECTIVE: Vital Signs Period Temp Pulse Resp BP Sys/Serrano Pulse Ox Last 24 Hr 98.2 F-99.1 F 55-76 16-21 116-138/62-89 99-99 Intake & Output 04/08/18 04/09/18 04/10/18 04/11/18 23:59 23:59 23:59 23:59 Intake Total 100 1300 Output Total 4000 1600 Balance -3900 -300 Weight 238 lb 6.4 oz 239 lb 6.752 oz General: sitting in bed in no acute distress Chest: CTAB, no rales or wheezing Abdomen:soft, Obese, NT Extremities: no edema Neuro: more awake today, otherwise nonfocal and unchanged exam Home Medications Medication Instructions Recorded NK [No Known Home Medication] 04/10/18 Active Medications Acetaminophen (Tylenol -) 650 mg PO Q6H PRN PRN Reason: PAIN LEVEL 6-10 Aspirin (Ecotrin -) 81 mg PO DAILY [facility] Labetalol HCl (Normodyne -) 200 mg PO Q6H PRN PRN Reason: HYPERTENSION Multivit/Folic Acid/Iron ( Vitamins (Sjr) -) 1 tab PO DAILY [facility] Last Admin: 04/11/18 10:45 Dose: 1 tab Laboratory Results - last 24 hr 04/10/18 04/10/18 04/10/18 15:54 19:00 19:00 WBC 9.7 RBC 4.77 Hgb 13.4 Hct 38.5 MCV 80.6 MCH 28.0 MCHC 34.8 RDW 14.4 Plt Count 428 MPV 8.9 Absolute Neuts (auto) 7.5 Neutrophils % 77.2 D Lymphocytes % 15.6 D Monocytes % 5.4 Eosinophils % 0.9 Basophils % 0.9 Nucleated RBC % 0 PT with INR INR PTT (Actin FS) Fibrinogen D-Dimer 74582 H Sodium Potassium Chloride Carbon Dioxide Anion Gap BUN Creatinine Creat Clearance w eGFR Random Glucose Lactic Acid Calcium Phosphorus Magnesium 5.2 H Total Bilirubin AST ALT Alkaline Phosphatase Troponin I B-Natriuretic Peptide Total Protein Albumin TSH 04/10/18 04/10/18 04/10/18 19:00 19:00 19:00 WBC RBC Hgb Hct MCV MCH MCHC RDW Plt Count MPV Absolute Neuts (auto) Neutrophils % Lymphocytes % Monocytes % Eosinophils % Basophils % Nucleated RBC % PT with INR 12.40 INR 1.05 PTT (Actin FS) 18.7 L Fibrinogen 234.0 L D-Dimer Sodium Potassium Chloride Carbon Dioxide Anion Gap BUN Creatinine Creat Clearance w eGFR Random Glucose Lactic Acid Calcium Phosphorus Magnesium Total Bilirubin AST ALT Alkaline Phosphatase Troponin I 0.06 H B-Natriuretic Peptide 1149.5 H Total Protein Albumin TSH 0.97 04/11/18 04/11/18 04/11/18 00:05 05:30 05:30 WBC 7.2 RBC 4.57 Hgb 12.2 Hct 37.4 MCV 81.7 MCH 26.8 MCHC 32.8 RDW 14.5 Plt Count 365 MPV 8.4 Absolute Neuts (auto) 5.2 Neutrophils % 71.9 Lymphocytes % 20.0 D Monocytes % 5.6 Eosinophils % 2.0 D Basophils % 0.5 Nucleated RBC % 0 PT with INR INR PTT (Actin FS) Fibrinogen D-Dimer Sodium 139 Potassium 3.1 L Chloride 104 Carbon Dioxide 24 Anion Gap 10 BUN 10 Creatinine 0.7 Creat Clearance w eGFR > 60 Random Glucose 80 Lactic Acid Calcium 7.8 L 7.6 L Phosphorus 4.1 Magnesium 6.2 H 6.3 H Total Bilirubin 0.4 AST 21 ALT 29 Alkaline Phosphatase 136 H Troponin I B-Natriuretic Peptide Total Protein 6.1 L Albumin 2.8 L TSH 04/11/18 04/11/18 09:20 13:40 WBC RBC Hgb Hct MCV MCH MCHC RDW Plt Count MPV Absolute Neuts (auto) Neutrophils % Lymphocytes % Monocytes % Eosinophils % Basophils % Nucleated RBC % PT with INR INR PTT (Actin FS) Fibrinogen D-Dimer Sodium 140 Potassium 3.7 Chloride 108 H Carbon Dioxide 24 Anion Gap 9 BUN 10 Creatinine 0.9 Creat Clearance w eGFR > 60 Random Glucose 111 H Lactic Acid 0.5 Calcium 7.5 L Phosphorus Magnesium 4.1 H Total Bilirubin AST ALT Alkaline Phosphatase Troponin I B-Natriuretic Peptide Total Protein Albumin TSH 2D echo results noted Duplex LE neg for DVT ASSESSMENT AND PLAN: 27 yof with recent for premature rupture of membranes a week ago, admitted with witnessed seizure x 2, found hypertensive and new onset afib with RVR -Seizure, preclamptic/eclampsia, r/o seizure disorder. Metabolic abnormality vs mass lower on differential -Hypertensive urgency, ?pre-eclampsia/eclampsia vs seizure medicated -New onset Afib with RVR -Lactic acidosis, suspect from seizure -Hypomagnesemia -Recent for premature rupture of membranes Recommendations: Doing well, no further seizure episodes. in NSR. 2D echo noted. Cardiology input appreciated. ASA 81 mg daily. Off Mg drip. Await neurology input. Dispo agree with transfer to telemetry. Possible dc in 24 hours if doing well and no events. Defer to primary team. Plan discussed with patient and ICU team. Thank you for the consult, will follow up. Total critical care time spent 35 min.
--- NOTE | 2018-04-11 18:19 | CONSULT ---
Consult - text type - Consultation Consultation Note: NEUROLOGY CONSULTATION is greatly appreciated: This 27 yo RH s woman is 7 days post- her third child by after her pulido broke at 37 weeks. Persistent holocranial headaches since D/C attributed to epidural Rx but, these were worse at night interrupting sleep. Yesterday felt unwell with increased headaches and nausea. Began to drive to the hospital but developed diplopia and couldn't drive. Stopped the car and had a seizure witnessed by a passerby who called EMS. Pt had a second witnessed seizure in the ED and has no recollection of events after stopping her car until after arriving in the ED. There, BP was 177/104 and she was started on Magnesium with control of BP. Transient AFib noted in the ED. No c/o headaches now. - PMH of headaches + FH of seizures in her sister, controlled with meds. CT of head (reviewed): Normal LISA: Obese. Neck supple. PU=705/70 NEURO: MS/Speech: Normal CN II-XII: Normal without Nystagmus Motor: No drift or tremor. Normal strength, tone bulk and reflexes. Toes downgoing Coord: No FTN Dystaxia Sensory: Normal Gait: Not tested. IMP: Normal neurological exam Ecclampsia with seizures. SUGGEST: Continue Mg++ Observe off AED's. Follow BP's carefully. Cont telemetry. W/U of AFib as per Dr. Haro MRI of Brain (C-/C+) and MR venogram to r/o sinus thrombosis. Neuro f/u and EEG as out patient. Thank you very much, Johnie Espana MD
[2018-04-12 06:25] VITALS: TEMP 98.4
[2018-04-12 07:46] LABS: BASO % 0.7 % (0-2.0); EOS % 3.6 % (0-4.5); HEMATOCRIT 37.4 % (32.4-45.2); LYMPH % 32.7 % (8-40); MCH 26.3 pg (25.7-33.7); MCHC 32.1 g/dl (32.0-36.0); MEAN CELL VOLUME 81.8 fl (80-96); MEAN PLT VOLUME 8.3 fl (7.5-11.1); MONO % 7.9 % (3.8-10.2); NEUT % 55.1 % (42.8-82.8); PLATELET COUNT 380 K/MM3 (134-434); RBC 4.58 M/mm3 (3.60-5.2); RDW 14.7 % (11.6-15.6); WHITE BLOOD COUNT 5.8 K/mm3 (4.0-10.0)
--- NOTE | 2018-04-12 08:09 | PN ---
Progress Note (short form) - Note Progress Note: Renal follow up for hypertension Pt seen and examined at the bedside no acute complaints feels much better no sob, cp, abd pain, CRUZ, dizziness, seizures tolerating diet Vital Signs Temperature 98.4 F 04/12/18 05:00 Pulse Rate 64 04/12/18 05:00 Respiratory Rate 18 04/12/18 05:00 Blood Pressure 124/80 04/12/18 05:00 O2 Sat by Pulse Oximetry (%) 99 04/11/18 10:00 Intake & Output 04/09/18 04/10/18 04/11/18 04/12/18 23:59 23:59 23:59 23:59 Intake Total 100 1310 240 Output Total 4000 1600 Balance -3900 -290 240 Weight 108.136 kg 108.6 kg 108.681 kg NAD awake and alert RRR, no M/R CTA trace LE edema CBC, BMP 04/12/18 06:25 Laboratory Tests 04/10/18 04/11/18 04/12/18 14:30 13:40 06:25 Calcium 7.5 L Magnesium 4.1 H Urine Protein 1+ H Urine Ketones 1+ H BILLY Screen Pending Anti-Cardiolipin IgG Ab Pending Current Medications Acetaminophen (Tylenol -) 650 mg PO Q6H PRN PRN Reason: PAIN LEVEL 6-10 Aspirin (Ecotrin -) 81 mg PO DAILY [facility] Labetalol HCl (Normodyne -) 200 mg PO Q6H PRN PRN Reason: HYPERTENSION Multivit/Folic Acid/Iron ( Vitamins (Sjr) -) 1 tab PO DAILY [facility] Last Admin: 04/11/18 10:45 Dose: 1 tab 27 yof with recent for premature rupture of membranes on 04/03, uneventful post op course d/boo on 04/05 presented with seizures and found to have hypertension and afib with RVR. #Seizures secondary to eclampisa # hypertension in setting of eclamspia #Afib with RVR #Proteinuria No further seizures noted off Mg gtt BP is WNL, has not required Labetalol PO pt is now in NSR stable from renal perspective for discharge w/o oral antihypertensive medications will need outpatient follow regarding BILLY and Anit-cardiolipin Ab check UPCR to quantify proteinuria Cardiology follow up Thank you Rick Lewis DO
[2018-04-12 08:23] LABS: ALBUMIN 2.7 g/dl (3.4-5.0); ALK PHOS 118 U/L (45-117); ANION GAP 9 MMOL/L (8-16); BILIRUBIN,TOTAL 0.4 mg/dL (0.2-1); BLOOD UREA NITROGEN 17 mg/dL (7-18); CALCIUM 8.2 mg/dL (8.5-10.1); CHLORIDE 109 mmol/L (98-107); CO2 25 mmol/L (21-32); CREATININE 0.8 mg/dL (0.55-1.3); GLUCOSE,RANDOM 74 mg/dL (74-106); MAGNESIUM 2.3 mg/dL (1.8-2.4); PHOSPHOROUS 4.8 mg/dL (2.5-4.9); POTASSIUM 3.7 mmol/L (3.5-5.1); SGOT/AST 10 U/L (15-37); SGPT/ALT 22 U/L (13-61); SODIUM 144 mmol/L (136-145); TOT PROT 5.9 g/dl (6.4-8.2)
--- NOTE | 2018-04-12 09:03 | PN ---
Progress Note, Physician Chief Complaint: seizure History of Present Illness: feels well neurologically denies cp, palpit, syncope no more sz - Current Medication List Current Medications: Active Medications Acetaminophen (Tylenol -) 650 mg PO Q6H PRN PRN Reason: PAIN LEVEL 6-10 Aspirin (Ecotrin -) 81 mg PO DAILY [facility] Labetalol HCl (Normodyne -) 200 mg PO Q6H PRN PRN Reason: HYPERTENSION Multivit/Folic Acid/Iron ( Vitamins (Sjr) -) 1 tab PO DAILY [facility] Last Admin: 04/11/18 10:45 Dose: 1 tab - Objective Vital Signs: Vital Signs Temperature 98.4 F 04/12/18 05:00 Pulse Rate 64 04/12/18 05:00 Respiratory Rate 18 04/12/18 05:00 Blood Pressure 124/80 04/12/18 05:00 O2 Sat by Pulse Oximetry (%) 99 04/11/18 10:00 Constitutional: Yes: Well Nourished, No Distress, Calm Neck: Yes: Tenderness Cardiovascular: Yes: S1, S2. No: Gallop, Murmur Respiratory: Yes: Regular, CTA Bilaterally. No: Accessory Muscle Use, Rales, Wheezes Extremities: No: Cold Edema: No Neurological: Yes: Alert, Oriented Psychiatric: No: Agitated Labs: CBC, BMP 04/12/18 06:25 04/12/18 06:25 INR, PTT INR 1.05 (0.83-1.09) 04/10/18 19:00 Fibrinogen 234.0 mg/dL (238-498) L 04/10/18 19:00 Assessment/Plan ecg: afib, vr 130s, nl qtc, no ischemic changes echo 04/06: nl LVSF. nl RV. mild LAE. mild MR/TR. tele: NSR a/p: 27 f no sig pmhx here with seizure. seizures, eclampsia: - eclamptic seizures, tx per neuro and lead inspector afib: -pt with afib and rvr in ER, converted on HER own to SR -baseline sinus nabeel on tele so would hold off on standing rate control med for now, may have only been an isolated episode afib in setting of electrolyte abnl, seizures. -remains in sinus currently -echo unremarkable -chadsvasc is 1 for female gender only so would not treat with AC. -no further inpatient CV w/u is indicated--outpt f/u with us trop elevation: -trop 0.08-->0.06. indeterminate values not diagnostic of ACS in absence of suggestive clinical context. flat trend excludes ACS -sec to seizure with hemodynamic changes/tachycardia. -normal LV on echo -no ischemia w/u indicated tob use: -smoking cessation discussed OK FOR D/C FROM CV P.O.V.
[2018-04-12] MEDS ORDERED: PT OWN MED DRAWER 7, Y5N ONE (09:16)
[2018-04-12] MEDS ORDERED: ASPIRIN COATED 81 MG TABLET.EC PO SCH (10:00)
--- NOTE | 2018-04-12 10:29 | PN ---
Teaching Attending Note Name of Resident: Stephanie St ATTENDING PHYSICIAN STATEMENT I saw and evaluated the patient. I reviewed the resident's note and discussed the case with the resident. I agree with the resident's findings and plan as documented with exceptions below. SUBJECTIVE: Patient seen and examined, no complaints. No headache, dizziness, chest pain, palpitations, abdominal pain or urinary symptoms. Feels well, eager to go home. OBJECTIVE: Vital Signs Period Temp Pulse Resp BP Sys/Serrano Pulse Ox Last 24 Hr 98.4 F-99.5 F 57-76 - 116-142/62-89 Intake & Output 04/09/18 04/10/18 04/11/18 04/12/18 23:59 23:59 23:59 23:59 Intake Total 100 1310 240 Output Total 4000 1600 Balance -3900 -290 240 Weight 238 lb 6.4 oz 239 lb 6.752 oz 239 lb 9.6 oz General: lying in bed in no acute distress Chest: CTAB, no rales or wheezing Abdomen:soft, obese, NT Extremities: no edema Neuro : AAOx3, non focal, unchanged from prior Active Medications Acetaminophen (Tylenol -) 650 mg PO Q6H PRN PRN Reason: PAIN LEVEL 6-10 Aspirin (Ecotrin -) 81 mg PO DAILY [facility] Labetalol HCl (Normodyne -) 200 mg PO Q6H PRN PRN Reason: HYPERTENSION Multivit/Folic Acid/Iron ( Vitamins (Sjr) -) 1 tab PO DAILY [facility] Last Admin: 04/11/18 10:45 Dose: 1 tab Laboratory Results - last 24 hr 04/11/18 04/12/18 04/12/18 13:40 06:25 06:25 WBC 5.8 RBC 4.58 Hgb 12.0 Hct 37.4 MCV 81.8 MCH 26.3 MCHC 32.1 RDW 14.7 Plt Count 380 MPV 8.3 Absolute Neuts (auto) 3.2 Neutrophils % 55.1 D Lymphocytes % 32.7 D Monocytes % 7.9 Eosinophils % 3.6 Basophils % 0.7 Nucleated RBC % 0 Sodium 140 144 Potassium 3.7 3.7 Chloride 108 H 109 H Carbon Dioxide 24 25 Anion Gap 9 9 BUN 10 17 Creatinine 0.9 0.8 Creat Clearance w eGFR > 60 > 60 Random Glucose 111 H 74 Calcium 7.5 L 8.2 L Phosphorus 4.8 Magnesium 4.1 H 2.3 Total Bilirubin 0.4 AST 10 L ALT 22 Alkaline Phosphatase 118 H Total Protein 5.9 L Albumin 2.7 L TSH 0.97 2D echo results noted MRI brain results pending Telemetry: NSR, HR 40s -70s ASSESSMENT AND PLAN: 27 yof with recent for premature rupture of membranes a week ago, admitted with witnessed seizure x 2, found hypertensive and new onset afib with RVR -Seizure, preclamptic/eclampsia, r/o seizure disorder. Metabolic abnormality vs mass lower on differential -Hypertensive urgency, ?pre-eclampsia/eclampsia vs seizure medicated -New onset Afib with RVR -Lactic acidosis, suspect from seizure -Hypomagnesemia -Recent for premature rupture of membranes Recommendations: Doing well, no further seizure episodes. Neurology input noted. MRI brain prelim report with suspicion of small SAH. Discussed with Dr. Espana, hold ASA (patient has not received yet) and check MRA with MRV. in NSR. 2D echo noted. Cardiology input appreciated. Hold ASA as above. Off Mg drip. Disp planning planning additional imaging and neurology input WIll continue to follow, thank you for the consult.
[2018-04-12] MEDS: PRENATAL VITAMINS W/ FOLIC ACID TABLET (FP) PO SCH (10:38)
--- NOTE | 2018-04-12 10:56 | PN ---
Physical Exam: SUBJECTIVE: Patient seen and examined at bedside- no acute events overnight; patient is not having anymore headaches or dizziness. patient has remained in sinus throughout the night. she denies any CP/SOB/N/V fevers or chills OBJECTIVE: Vital Signs Period Temp Pulse Resp BP Sys/Serrano Pulse Ox Last 24 Hr 98.4 F-99.5 F 57-76 18-18 116-142/62-89 GENERAL: The patient is awake, alert, and fully oriented, in no acute distress. EYES: no scleral icterus NECK: no JVD, no thyromegaly LUNGS: CTA B/L; no rales, rhonchi or wheezing HEART: Regular rate and rhythm, S1, S2 without murmur, rub or gallop. ABDOMEN: Soft, nontender, nondistended, normoactive bowel sounds, no guarding, no rebound, no hepatosplenomegaly, no masses. EXTREMITIES: 2+ pulses, warm, well-perfused, no edema. Laboratory Results - last 24 hr 04/11/18 04/12/18 04/12/18 13:40 06:25 06:25 WBC 5.8 RBC 4.58 Hgb 12.0 Hct 37.4 MCV 81.8 MCH 26.3 MCHC 32.1 RDW 14.7 Plt Count 380 MPV 8.3 Absolute Neuts (auto) 3.2 Neutrophils % 55.1 D Lymphocytes % 32.7 D Monocytes % 7.9 Eosinophils % 3.6 Basophils % 0.7 Nucleated RBC % 0 Sodium 140 144 Potassium 3.7 3.7 Chloride 108 H 109 H Carbon Dioxide 24 25 Anion Gap 9 9 BUN 10 17 Creatinine 0.9 0.8 Creat Clearance w eGFR > 60 > 60 Random Glucose 111 H 74 Calcium 7.5 L 8.2 L Phosphorus 4.8 Magnesium 4.1 H 2.3 Total Bilirubin 0.4 AST 10 L ALT 22 Alkaline Phosphatase 118 H Total Protein 5.9 L Albumin 2.7 L TSH 0.97 Active Medications Generic Name Dose Route Start Last Admin Trade Name Freq PRN Reason Stop Dose Admin Acetaminophen 650 mg 04/11/18 14:27 Tylenol - PO Q6H PRN PAIN LEVEL 6-10 Labetalol HCl 200 mg 04/10/18 11:03 Normodyne - PO Q6H PRN HYPERTENSION Multivit/Folic Acid/Iron 1 tab 04/11/18 10:00 04/12/18 10:38 Vitamins (Sjr) - PO 1 tab DAILY SOLEDAD Administration ASSESSMENT/PLAN: 27 year old female with S/P one week ago presented to the ED by EMS due to seizure activity was found to have elevated blood pressure and Afib. # Post eclamptic Seizure unlikely HELLP -MRI final read pending: prelim shows no mass/lesion/infarct but increased signal in left occipital lobe with ? subarachnoid blood; stopping ASA for now in light of MRI read -patient is no longer on the magnesium drip; her most recent Mg was 6.0 -has not had anymore seizure since she was in the ED yesterday -Dr. Russell (neuro) saw patient last night- wants an MRA with venogram to be done -renal consulted as well: ordered BILLY/antiphospholipd /anticardiolipin # HTN * patient no longer hypertensive * Labteolol PRN * no previous history of HTN , # AFIB -patient spontaneously converted back to sinus early this morning -cardio consulted; no need for AC , just ASA 81 daily -echo done; EF 50-55, mild MR, mild TR, mild pericardial effusion, - # FEN * Oral intake * E: Monitor * N: low sodium diet # Proph * Scds both legs Problem List - Problems (1) eclampsia Code(s): O15.2 - ECLAMPSIA COMPLICATING THE PUERPERIUM Visit type - Emergency Visit Emergency Visit: Yes ED Registration Date: 04/10/18 Care time: The patient presented to the Emergency Department on the above date and was hospitalized for further evaluation of their emergent condition. - New Patient This patient is new to me today: No - Critical Care Critical Care patient: No
[2018-04-12 12:42] VITALS: BP 129/76; PULSE 63
--- NOTE | 2018-07-04 15:05 | EKG ---
Test Reason : Blood Pressure : / mmHG Vent. Rate : 098 BPM Atrial Rate : 138 BPM P-R Int : 000 ms QRS Dur : 086 ms QT Int : 334 ms P-R-T Axes : 000 051 046 degrees QTc Int : 426 ms ATRIAL FIBRILLATION ABNORMAL ECG WHEN COMPARED WITH ECG OF 10-APR-2018 09:20, NO SIGNIFICANT CHANGE WAS FOUND Confirmed by JOSE EDUARDO NGUYEN MD ([id number]) on 07/04/2018 3:04:44 PM Referred By: Confirmed By:JOSE EDUARDO NGUYEN MD
== END 2018-04-12 11:49 | disposition left against medical advice (07) | DRG 561 ==
LOC: JER 08:14 → JERBED 09:27 → JICU 17:18 → J4W 04-11 20:30
PROVIDERS: ADMIT Obstetrics & Gynecology; ATTEND Obstetrics & Gynecology
DX: O15.2 Eclampsia complicating the puerperium (principal); O90.89 Other complications of the puerperium, not elsewhere classified; R56.9 Unspecified convulsions; I48.91 Unspecified atrial fibrillation; I16.0 Hypertensive urgency; O16.5 Unspecified maternal hypertension, complicating the puerperium; E87.2 Acidosis; E83.42 Hypomagnesemia; F17.210 Nicotine dependence, cigarettes, uncomplicated; O99.215 Obesity complicating the puerperium; E66.8 Other obesity
CPT/HCPCS: 36415; 70450-TC; 70553-TC; 71045-TC-FY; 80048; 80053; 80307; 81003; 81015; 82310; 82550; 82553; 82570; 83605; 83615; 83735; 83880; 84100; 84156; 84443; 84484; 84703; 85025; 85379; 85384; 85610; 85730; 86038; 87040; 87086; 93005; 93010; 93306-TC; 93970-TC; 99284-25; J0131

== ENCOUNTER 2018-04-14 06:42 | Inpatient (IN) | payer OTHER ==
--- NOTE | 2018-04-14 07:24 | PDOC ---
Attending Attestation - HPI HPI: 04/14/18 10:27 The patient is a 27 yo female, one week ( delivery), who presents about 4 days after being seen in the ED for seizure with complaint of gradual onset of headache today. She states the headache progressed slowly over the course of a few hours until it reached 10/10 in severity prompting her ED visit today. She states she has delivered 2 other children without having her current symptoms or ever being told she has eclampsia. Perforator: Dr. Rodríguez - Physicial Exam PE: 04/14/18 10:27 Vitals: Triage vital signs reviewed General Appearance: No acute distress, well nourished, well developed Head: Atraumatic Eyes: Pupils equal reactive round, extraocular movement intact Neck: Supple; No nuchal rigidity Chest Wall: Nontender Cardiac: Regular rate and rhythm, no murmurs, no rubs, no gallops Lungs: Clear to auscultation bilateral, good air movement bilaterally Abdomen: Soft, nondistended, normal bowel sounds, nontender to palpation Genitourinary: Rectal: Exam deferred Extremities: Full range of motion to all extremities, no cyanosis, clubbing, or edema Skin: Warm and dry, no rashes or lesions, no rash, no petechiae Neuro: AOX3; Cranial Nerves 2-12 grossly intact, Strength intact to all extremities, Sensation intact to all extremities, gait normal Psych: Normal mood, normal affect - Medical Decision Making 04/14/18 10:27 Documentation prepared by Sugey Vyas, acting as medical radiation dosimetrist for Oral Crawford MD <Sugey Vyas - Last Filed: 04/14/18 10:57> - Resident Resident Name: Radha Flowers - ED Attending Attestation I have performed the following: I have examined & evaluated the patient, The case was reviewed & discussed with the resident, I agree w/resident's findings & plan, Exceptions are as noted - Critical Care Time Total Critical Care Time: 45 Critical Care Statement: The care of this patient involved high complexity decision making to prevent further life threatening deterioration of the patient 's condition and/or to evaluate & treat vital organ system(s) failure or risk of failure. - Medical Decision Making 27 years old with preeclampsia last week presents to the ED with hypertension and severe headache 2 days Heart rate 60 not a candidate for labetalol IV hydralazine given ICU and HYDROPONICS WORKER consult in Reevaluation blood pressure still very elevated second dose hydralazine given magnesium ordered stat head CT ordered Reevaluation head CT with no evidence of bleed Reevaluation patient feels much better blood pressure now 131/81 headache resolved. Given the need for multiple rounds of IV medication patient required admission to the ICU with close monitoring by HYDROPONICS WORKER as well as nursing home administrator We'll admit to ICU for further management. <Oral Crawford - Last Filed: 04/14/18 14:31>
--- NOTE | 2018-04-14 07:27 | PDOC ---
History of Present Illness - General Chief Complaint: Blood Pressure Problem Stated Complaint: R/O HIGH BP Time Seen by Provider: 04/14/18 07:23 History Source: Patient Exam Limitations: No Limitations Past History - Past Medical History Allergies/Adverse Reactions: Allergies Allergy/AdvReac Type Severity Reaction Status Date / Time No Known Allergies Allergy Verified 04/14/18 07:12 Home Medications: Ambulatory Orders NK [No Known Home Medication] 04/14/18 Asthma: No Cancer: No Cardiac Disorders: No CVA: No COPD: No DVT: No Dementia: No Diabetes: No HTN: No Seizures: No Thyroid Disease: No - Immunization History Immunization Up to Date: Yes - Suicide/Smoking/Psychosocial Hx Smoking History: Never smoked Have you smoked in the past 12 months: No Number of Cigarettes Smoked Daily: 5 Information on smoking cessation initiated: No Hx Alcohol Use: No Drug/Substance Use Hx: No Substance Use Type: None Hx Substance Use Treatment: No *Physical Exam - Vital Signs Last Vital Signs Temp Pulse Resp BP Pulse Ox 97.9 F 61 19 170/75 98 04/14/18 06:45 04/14/18 06:45 04/14/18 06:45 04/14/18 06:45 04/14/18 06:45 ED Treatment Course - LABORATORY CBC & Chemistry Diagram: 04/14/18 07:46 04/14/18 07:46 Medical Decision Making - Medical Decision Making Pt was seen at bedside, also will be seen by attending Dr. Crawford. Pt presenting with PE showed [] Considering [vs vs] Ordered work-up including [labs] and [imaging]. Provided 10 mg IV hydralazine and 650 mg PO tylenol for improvement of headache and BP control. Will continue to reassess pt and monitor for symptomatic improvement. 04/14/18 08:[address] Perez, who will follow the pt. Asked for call to be placed to Neurology once CT scan obtained (pt had small potential hemorrhage on MRI and pt left AMA last visit). Pt repeat BP 190/100 after first dose of hydralazine. Ordered additional 20 mg IV hydralazine (30 mg given total). Pt will be taken for CT scan once BP stabilized. CBC and CMP WNL (AST and ALT WNL, no electrolyte abnormalities). Coags pending. 04/14/18 08:46 Repeat BP 140/112. Pt returned from CT scan, pending read. 04/14/18 08:58 [id number] CT/HEAD CT WITHOUT CONTRAST Recent hemorrhage evaluate for expansion. CT scan of the brain C-. Comparison study. CT brain April 10, 2018, MRI of the brain April 11, 2018. Findings. Serial axial images of the brain were obtained from foramen magnum to the cranial vertex without intravenous contrast with coronal, sagittal reconstruction images. The CSF spaces are age-appropriate. There is no evidence of acute subarachnoid hemorrhage, acute intra-axial or extra-axial fluid collection consistent with subdural or epidural hematoma. No mass effect, midline shift, acute ischemic changes, herniation or edema is present. Normal julian matter white matter differentiation. The cortical sulci, sylvian fissures, perimesencephalic cisterns are not effaced. Examination of the bone windows show no fracture. The visualized paranasal sinuses and mastoid air cells are clear. Impression. No evidence of acute intracranial hemorrhage, edema, midline shift, mass effect , or skull fracture. No CT evidence of acute territorial infarction. 04/14/18 09:26 Pt was started on 4 g Mg IV, in 4 incremental administrations (pt on 3g/4g). Repeat BP 135/95 Pt expressing interest in leaving AMA. Explained significant risk of continued seizure and uncontrolled BP. 04/14/18 09:39 Pt convinced to stay for admission. Paging hospitalist team (last admission 04/12 - Dr. Loyola) and ICU for admission. Paging neurologist for consult (Dr Espana). ICU accepted consult and will come to see the pt (consult under Dr. Rai). Neuro exam intact +strength in all extremities, no decreased sensation 04/14/18 09:[address] Blue (neuro) who suggested calling Dr. Espana's office since he saw the pt once during the last admission. Paging Dr. Espana's team. 04/14/18 10:[address] Espana, accepted pt for consult and will follow. 04/14/18 11:04 Neuro exam intact +strength in all extremities, no decreased sensation. 04/14/18 14:21 Pt signed out to next resident team. Explained presentation, ED course, any pending results, and needed interventions to resident Dr. Perez. Explained need for check-ins for BP monitoring/symptomatic HTN. 04/14/18 18:59 *DC/Admit/Observation/Transfer Diagnosis at time of Disposition: hypertension, eclampsia - Discharge Dispostion Condition at time of disposition: Guarded Decision to Admit order: Yes - Referrals - Patient Instructions - Post Discharge Activity
[2018-04-14] MEDS ORDERED: hydrALAZINE HCL 20 MG/ML VIAL IVPUSH ONE ×2 (07:55→08:27)
[2018-04-14] MEDS ORDERED: hydrALAZINE HCL 20 MG/ML VIAL ONE ×2 (08:00→08:28)
[2018-04-14] MEDS ORDERED: ACETAMINOPHEN 325 MG TABLET (FP) PO ONE (08:19)
[2018-04-14 08:23] LABS: BASO % 0.9 % (0-2.0); EOS % 3.8 % (0-4.5); HEMATOCRIT 36.3 % (32.4-45.2); HEMOGLOBIN 12.5 GM/dL (10.7-15.3); LYMPH % 32.5 % (8-40); MCH 28.1 pg (25.7-33.7); MCHC 34.5 g/dl (32.0-36.0); MEAN CELL VOLUME 81.5 fl (80-96); MEAN PLT VOLUME 8.7 fl (7.5-11.1); MONO % 7.9 % (3.8-10.2); NEUT % 54.9 % (42.8-82.8); PLATELET COUNT 392 K/MM3 (134-434); RBC 4.46 M/mm3 (3.60-5.2); RDW 14.3 % (11.6-15.6); WHITE BLOOD COUNT 5.2 K/mm3 (4.0-10.0)
[2018-04-14] MEDS ORDERED: ACETAMINOPHEN 325 MG TABLET (FP) ONE (08:28)
[2018-04-14 08:29] LABS: ALK PHOS 118 U/L (45-117); ANION GAP 8 MMOL/L (8-16); BILIRUBIN,TOTAL 0.3 mg/dL (0.2-1); BLOOD UREA NITROGEN 9 mg/dL (7-18); CALCIUM 9.1 mg/dL (8.5-10.1); CHLORIDE 109 mmol/L (98-107); CO2 25 mmol/L (21-32); CREATININE 0.7 mg/dL (0.55-1.3); GLUCOSE,RANDOM 90 mg/dL (74-106); POTASSIUM 4.1 mmol/L (3.5-5.1); SGOT/AST 18 U/L (15-37); SGPT/ALT 23 U/L (13-61); SODIUM 142 mmol/L (136-145); TOT PROT 6.4 g/dl (6.4-8.2)
[2018-04-14 09:03] LABS: INR 1.13 (0.83-1.09); PROTHROMBIN TIME (PATIENT) 13.3 SEC (9.7-13.0)
[2018-04-14] MEDS ORDERED: MAGNESIUM IVPB ONE (09:04)
[2018-04-14] MEDS ORDERED: [UNRECOGNIZED DRUG - OTHER] IVPB ONE (09:04)
[2018-04-14 09:06] LABS: ACTIVATED PTT 26.7 SECONDS (25.2-36.5)
[2018-04-14 09:54] LABS: URINE APPEARANCE SLCLOUDY; URINE BILIRUBIN NEGATIVE (<2.0 mg/dL); URINE COLOR LTYELLOW; URINE GLUCOSE (UA) NEGATIVE (NEGATIVE); URINE KETONE NEGATIVE (NEGATIVE); URINE LEUK ESTERASE 3+ (NEGATIVE); URINE NITRITE NEGATIVE (NEGATIVE); URINE PROTEIN NEGATIVE (NEGATIVE); URINE UROBILINOGEN NEGATIVE mg/dL (0.2-1.0)
[2018-04-14 10:25] LABS: EPI CELLS FEW /HPF (FEW); URINE BACTERIA RARE /hpf (NONE SEEN); URINE MUCUS RARE
--- NOTE | 2018-04-14 10:52 | EKG ---
Test Reason : Blood Pressure : / mmHG Vent. Rate : 051 BPM Atrial Rate : 051 BPM P-R Int : 140 ms QRS Dur : 074 ms QT Int : 458 ms P-R-T Axes : -16 076 059 degrees QTc Int : 422 ms SINUS BRADYCARDIA WITH PREMATURE ATRIAL COMPLEXES OTHERWISE NORMAL ECG WHEN COMPARED WITH ECG OF 10-APR-2018 10:27, SINUS RHYTHM HAS REPLACED ATRIAL FIBRILLATION VENT. RATE HAS DECREASED BY 47 BPM T WAVE VARIATION Confirmed by CAROL DOWLING MD ([id number]) on 04/14/2018 10:52:37 AM Referred By: Confirmed By:CAROL DOWLING MD
--- NOTE | 2018-04-14 15:52 | CON.CARD ---
Cardiology Consult (text) - Consultation Consultation Note: Consultation Note: cc: headache hpi: 27 f recent hosiptalization for eclampsia p/w HTN, headache. Recently had , had been doing well initially then thought to have seizure, had witnessed seizure in ER. Also noted to have afib wtih RVR, converted to sinus. Was advised to start aspirin which was held due to concern for subarachnoid hemorrhage on MRI head. Left AMA on 04/12. Returns for headache over last day. No cp sob palps dizzy pnd orthopnea. Mild pedal edema during and a few days after C section. BP in ER 190/110, received hydralazine 10 mg IV x1 with minimal improvement and additional hydralazine 20 mg IV x 1. pmh: per hpi psh: c-sections social: +cigs fam: no premature cad, scd ros: per hpi; no nvd gib hematuria dysuria muscle pain meds: Home Medications Medication Instructions Recorded NK [No Known Home Medication] 04/14/18 pe: Vital Signs Period Temp Pulse Resp BP Sys/Serrano Pulse Ox Last 24 Hr 97.9 F-98.7 F 61-83 18-19 133-190/69-112 96-100 nad no jvd rrr s1s2 no mrg cta bl nl eff aaox3 no le e/c/c abd nt nd pos bs no jaundice diaphoresis pos dp pt no carotid bruits Laboratory Last Values WBC 5.2 K/mm3 (4.0-10.0) 04/14/18 07:46 RBC 4.46 M/mm3 (3.60-5.2) 04/14/18 07:46 Hgb 12.5 GM/dL (10.7-15.3) 04/14/18 07:46 Hct 36.3 % (32.4-45.2) 04/14/18 07:46 MCV 81.5 fl (80-96) 04/14/18 07:46 MCH 28.1 pg (25.7-33.7) 04/14/18 07:46 MCHC 34.5 g/dl (32.0-36.0) 04/14/18 07:46 RDW 14.3 % (11.6-15.6) 04/14/18 07:46 Plt Count 392 K/MM3 (134-434) 04/14/18 07:46 MPV 8.7 fl (7.5-11.1) 04/14/18 07:46 Absolute Neuts (auto) 2.9 K/mm3 (1.5-8.0) 04/14/18 07:46 Neutrophils % 54.9 % (42.8-82.8) 04/14/18 07:46 Lymphocytes % 32.5 % (8-40) 04/14/18 07:46 Monocytes % 7.9 % (3.8-10.2) 04/14/18 07:46 Eosinophils % 3.8 % (0-4.5) 04/14/18 07:46 Basophils % 0.9 % (0-2.0) 04/14/18 07:46 Nucleated RBC % 0 % (0-0) 04/14/18 07:46 PT with INR 13.30 SEC (9.7-13.0) H 04/14/18 07:55 INR 1.13 (0.83-1.09) H 04/14/18 07:55 PTT (Actin FS) 26.7 SECONDS (25.2-36.5) 04/14/18 07:55 Sodium 142 mmol/L (136-145) 04/14/18 07:46 Potassium 4.1 mmol/L (3.5-5.1) 04/14/18 07:46 Chloride 109 mmol/L (98-107) H 04/14/18 07:46 Carbon Dioxide 25 mmol/L (21-32) 04/14/18 07:46 Anion Gap 8 MMOL/L (8-16) 04/14/18 07:46 BUN 9 mg/dL (7-18) 04/14/18 07:46 Creatinine 0.7 mg/dL (0.55-1.3) 04/14/18 07:46 Creat Clearance w eGFR > 60 (>60) 04/14/18 07:46 Random Glucose 90 mg/dL (74-106) 04/14/18 07:46 Calcium 9.1 mg/dL (8.5-10.1) 04/14/18 07:46 Total Bilirubin 0.3 mg/dL (0.2-1) 04/14/18 07:46 AST 18 U/L (15-37) 04/14/18 07:46 ALT 23 U/L (13-61) 04/14/18 07:46 Alkaline Phosphatase 118 U/L (45-117) H 04/14/18 07:46 Total Protein 6.4 g/dl (6.4-8.2) 04/14/18 07:46 Albumin 3.0 g/dl (3.4-5.0) L 04/14/18 07:46 Urine Color Ltyellow 04/14/18 09:15 Urine Appearance Slcloudy 04/14/18 09:15 Urine pH 6.0 (5.0-8.0) 04/14/18 09:15 Ur Specific [place] 1.011 (1.010-1.035) 04/14/18 09:15 Urine Protein Negative (NEGATIVE) 04/14/18 09:15 Urine Glucose (UA) Negative (NEGATIVE) 04/14/18 09:15 Urine Ketones Negative (NEGATIVE) 04/14/18 09:15 Urine Blood 3+ (NEGATIVE) H 04/14/18 09:15 Urine Nitrite Negative (NEGATIVE) 04/14/18 09:15 Urine Bilirubin Negative (<2.0 mg/dL) 04/14/18 09:15 Urine Urobilinogen Negative mg/dL (0.2-1.0) 04/14/18 09:15 Ur Leukocyte Esterase 3+ (NEGATIVE) H 04/14/18 09:15 Urine WBC (Auto) 16 /hpf (3-5) 04/14/18 09:15 Urine RBC (Auto) 2 /hpf (0-3) 04/14/18 09:15 Ur Epithelial Cells Few /HPF (FEW) 04/14/18 09:15 Urine Bacteria Rare /hpf (NONE SEEN) 04/14/18 09:15 Urine Mucus Rare 04/14/18 09:15 cxr: possible chf ecg: sinus bradycardia, PACs echo 04/06: nl LVSF. nl RV. mild LAE. mild MR/TR. a/p: 27 f h/o eclampsia p/w HTN, headache HTN, eclampsia - no prior h/o HTN before - recently admitted for eclamptic seizure, BP initially elevated then improved however in light of recurrent HTN, possible subarachnoid hemorrhage will start anti-HTN agent - patient does not plan on breast feeding - start HCTZ 12.5 mg daily - monitor BP, BP may improve after immediate post period - advised follow up with cardiology - appreciate taxi driver and neuro recs Subarachnoid hemorrhage - possible, noted on MRI head during prior admission, patient left AMA prior to evaluation - neuro consulted - hold aspirin afib: -pt with afib and rvr in ER, converted on own to SR during admission for eclamptic seizures, electrolyte abnormalities - defer rate control agent given bradycardia at baseline -tsh wnl -echo pending -chadsvasc is 1 for female gender only so would not treat with AC, instead would give asa 81 if cleared per neuro as patient has possible subarachnoid hemorrhage on MRI last week tob use: -smoking cessation discussed
[2018-04-14] MEDS ORDERED: HYDROCHLOROTHIAZIDE 12.5 MG CAPSULE (FP) PO SCH (16:00)
[2018-04-14] MEDS ORDERED: LABETALOL HCL 5 MG/1 ML (100MG/20 ML VIAL) IVPUSH PRN ×2 (16:01→16:25)
[2018-04-14] MEDS ORDERED: hydrALAZINE HCL 25 MG TABLET (FP) ONE (16:04)
--- NOTE | 2018-04-14 16:23 | CONSULT ---
Consultation: CONSULT REQUEST: ICU HISTORY OF PRESENT ILLNESS: Patient is a 27 yo F, one week (c- section delivery), presented to the ED because of 10/10 diffuse headache that woke her up from bed this morning. Patient was admitted 4 days ago for post eclamptic seizures and left AMA. She was started on a magnesium drip at the time. On MRI last visit, it was reported patient may have possible subarachnoid bleed. However, in the ER, Head CT did not show any acute hemorrhages. Patient currently has headache and denies other symptoms such as seizures, loss of vision, chest pain, nausea, vomiting. In the ER she was found to be hypertensive at 190/100. She was given a total of 30mg IV hydralizine and 4mg of Magnesium, which brought down her BP to normal values. REVIEW OF SYSTEMS: CONSTITUTIONAL: Absent: fever, chills, diaphoresis, generalized weakness, malaise, loss of appetite, weight change HEENT: Absent: rhinorrhea, nasal congestion, throat pain, throat swelling, difficulty swallowing, mouth swelling, ear pain, eye pain, visual changes CARDIOVASCULAR: Absent: chest pain, syncope, palpitations, irregular heart rate, lightheadedness , peripheral edema RESPIRATORY: Absent: cough, shortness of breath, dyspnea with exertion, orthopnea, wheezing, stridor, hemoptysis GASTROINTESTINAL: Absent: abdominal pain, abdominal distension, nausea, vomiting, diarrhea, constipation, melena, hematochezia HEMATOLOGIC/IMMUNOLOGIC: Absent: easy bleeding, easy bruising, lymphadenopathy, frequent infections ENDOCRINE: Absent: unexplained weight gain, unexplained weight loss, heat intolerance, cold intolerance NEUROLOGIC: headache Absent: focal weakness or paresthesias, dizziness, unsteady gait, seizure, mental status changes, bladder or bowel incontinence PHYSICAL EXAMINATION Vital Signs - 24 hr 04/14/18 04/14/18 04/14/18 06:45 08:00 08:54 Temperature 97.9 F Pulse Rate 61 Pulse Rate [ 68 62 Radial] Respiratory 19 18 18 Rate Blood Pressure 170/75 Blood Pressure 190/100 H 140/112 H [Left Arm] O2 Sat by Pulse 98 97 97 Oximetry (%) 04/14/18 04/14/18 04/14/18 09:48 10:58 14:31 Temperature 98.7 F Pulse Rate Pulse Rate [ 70 83 Radial] Respiratory 18 18 Rate Blood Pressure Blood Pressure 133/78 156/69 147/86 [Left Arm] O2 Sat by Pulse 96 100 Oximetry (%) GENERAL: Awake, alert, and fully oriented HEAD: Normal with no signs of trauma. EYES: Pupils equal, round and reactive to light, extraocular movements intact, injected right conjunctiva EARS, NOSE, THROAT: oropharynx clear without exudates. Dry mucous membranes NECK: supple without lymphadenopathy, JVD, or masses. LUNGS: Breath sounds equal, clear to auscultation bilaterally. HEART: Regular rate and rhythm, normal S1 and S2 ABDOMEN: Soft, nontender, not distended, normoactive bowel sounds UPPER EXTREMITIES: 2+ pulses, No peripheral edema. LOWER EXTREMITIES: 2+ pulses, No peripheral edema. NEUROLOGICAL: Cranial nerves II-XII intact. Normal speech. PSYCHIATRIC: Cooperative. Laboratory Results - last 24 hr 04/14/18 04/14/18 04/14/18 07:46 07:46 07:55 WBC 5.2 RBC 4.46 Hgb 12.5 Hct 36.3 MCV 81.5 MCH 28.1 MCHC 34.5 RDW 14.3 Plt Count 392 MPV 8.7 Absolute Neuts (auto) 2.9 Neutrophils % 54.9 Lymphocytes % 32.5 Monocytes % 7.9 Eosinophils % 3.8 Basophils % 0.9 Nucleated RBC % 0 PT with INR 13.30 H INR 1.13 H PTT (Actin FS) 26.7 Sodium 142 Potassium 4.1 Chloride 109 H Carbon Dioxide 25 Anion Gap 8 BUN 9 Creatinine 0.7 Creat Clearance w eGFR > 60 Random Glucose 90 Calcium 9.1 Total Bilirubin 0.3 AST 18 ALT 23 Alkaline Phosphatase 118 H Total Protein 6.4 Albumin 3.0 L Urine Color Urine Appearance Urine pH Ur Specific [place] Urine Protein Urine Glucose (UA) Urine Ketones Urine Blood Urine Nitrite Urine Bilirubin Urine Urobilinogen Ur Leukocyte Esterase Urine WBC (Auto) Urine RBC (Auto) Ur Epithelial Cells Urine Bacteria Urine Mucus 04/14/18 09:15 WBC RBC Hgb Hct MCV MCH MCHC RDW Plt Count MPV Absolute Neuts (auto) Neutrophils % Lymphocytes % Monocytes % Eosinophils % Basophils % Nucleated RBC % PT with INR INR PTT (Actin FS) Sodium Potassium Chloride Carbon Dioxide Anion Gap BUN Creatinine Creat Clearance w eGFR Random Glucose Calcium Total Bilirubin AST ALT Alkaline Phosphatase Total Protein Albumin Urine Color Ltyellow Urine Appearance Slcloudy Urine pH 6.0 Ur Specific [place] 1.011 Urine Protein Negative Urine Glucose (UA) Negative Urine Ketones Negative Urine Blood 3+ H Urine Nitrite Negative Urine Bilirubin Negative Urine Urobilinogen Negative Ur Leukocyte Esterase 3+ H Urine WBC (Auto) 16 Urine RBC (Auto) 2 Ur Epithelial Cells Few Urine Bacteria Rare Urine Mucus Rare Active Medications Generic Name Dose Route Start Last Admin Trade Name Freq PRN Reason Stop Dose Admin Chlorhexidine Gluconate 1 applic 04/14/18 22:00 Hibiclens For Decolonization - TP HS SOLEDAD Hydrochlorothiazide 12.5 mg 04/14/18 16:00 Hctz - PO DAILY SOLEDAD Labetalol HCl 10 mg 04/14/18 16:01 Normodyne Injection - IVPUSH Q4H PRN HYPERTENSION Mupirocin 1 applic 04/14/18 22:00 Bactroban Ointment (For Decolonization) - NS 04/19/18 21:59 BID SOLEDAD ASSESSMENT/PLAN: Neuro #Headache #questionable subarachnoid bleed on previous MRI -Recent Eclamptic seizures -Given 4mg Magnesium in ER -FU repeat Mag Level -neuro checks -Head CT with no acute bleeds -DTRs -OBGYN on board -Neuro consulted: Dr. Espana CV #HTN -Labetolol PRN -daily HCTZ 12.5 -current BP wnl -monitor BP -cardio on board FEN -no iv fluids -monitor -sodium controlled diet PPX -SCDs ICU monitoring Dispo: We will continue to follow the patient. Thank you for this consultative opportunity.
--- NOTE | 2018-04-14 16:42 | HP ---
Admitting History and Physical - Primary Care Physician PCP: Felice Byrd - Admission History of Present Illness: 27 f recent hosiptalization for eclampsia p/w HTN, headache. Recently had c- section, had been doing well initially then thought to have seizure, had witnessed seizure in ER. Also noted to have afib wtih RVR, converted to sinus. Was advised to start aspirin which was held due to concern for subarachnoid hemorrhage on MRI head. Left AMA on 04/12. came back to ER for headache. No cp sob palps dizzy pnd orthopnea. Mild pedal edema during and a few days after C section. 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) - Past Surgical History Past Surgical History: Yes: - Smoking History Smoking history: Never smoked Have you smoked in the past 12 months: No Aproximately how many cigarettes per day: 5 - Alcohol/Substance Use Hx Alcohol Use: No History of Substance Use: reports: None Home Medications - Allergies Allergies/Adverse Reactions: Allergies Allergy/AdvReac Type Severity Reaction Status Date / Time No Known Allergies Allergy Verified 04/14/18 07:12 - Home Medications Home Medications: Ambulatory Orders Hydrochlorothiazide [Hctz -] 12.5 mg PO DAILY #30 cap 04/15/18 Physical Examination Vital Signs: Vital Signs Temperature 98.7 F 04/14/18 14:31 Pulse Rate 83 04/14/18 14:31 Respiratory Rate 18 04/14/18 14:31 Blood Pressure 147/86 04/14/18 14:31 O2 Sat by Pulse Oximetry (%) 100 04/14/18 14:31 Constitutional: Yes: No Distress HENT: Yes: Atraumatic Neck: Yes: Supple Cardiovascular: Yes: Regular Rate and Rhythm Respiratory: Yes: CTA Bilaterally Gastrointestinal: Yes: Normal Bowel Sounds Extremities: Yes: WNL Neurological: Yes: Alert, Oriented Labs: CBC, BMP 04/14/18 07:46 04/14/18 07:46 Problem List - Problems (1) hypertension Assessment/Plan: bp much better after meds in er not symptomatic...said feels better will be monitored in icu Code(s): O16.5 - UNSPECIFIED MATERNAL HYPERTENSION, COMP THE PUERPERIUM (2) eclampsia Code(s): O15.2 - ECLAMPSIA COMPLICATING THE PUERPERIUM Assessment/Plan Laboratory Tests 04/14/18 04/14/18 04/14/18 07:46 07:46 07:55 WBC 5.2 RBC 4.46 Hgb 12.5 Hct 36.3 MCV 81.5 MCH 28.1 MCHC 34.5 RDW 14.3 Plt Count 392 MPV 8.7 Absolute Neuts (auto) 2.9 Neutrophils % 54.9 Lymphocytes % 32.5 Monocytes % 7.9 Eosinophils % 3.8 Basophils % 0.9 Nucleated RBC % 0 PT with INR 13.30 H INR 1.13 H PTT (Actin FS) 26.7 Sodium 142 Potassium 4.1 Chloride 109 H Carbon Dioxide 25 Anion Gap 8 BUN 9 Creatinine 0.7 Creat Clearance w eGFR > 60 Random Glucose 90 Calcium 9.1 Total Bilirubin 0.3 AST 18 ALT 23 Alkaline Phosphatase 118 H Total Protein 6.4 Albumin 3.0 L Urine Color Urine Appearance Urine pH Ur Specific [place] Urine Protein Urine Glucose (UA) Urine Ketones Urine Blood Urine Nitrite Urine Bilirubin Urine Urobilinogen Ur Leukocyte Esterase Urine WBC (Auto) Urine RBC (Auto) Ur Epithelial Cells Urine Bacteria Urine Mucus 04/14/18 09:15 WBC RBC Hgb Hct MCV MCH MCHC RDW Plt Count MPV Absolute Neuts (auto) Neutrophils % Lymphocytes % Monocytes % Eosinophils % Basophils % Nucleated RBC % PT with INR INR PTT (Actin FS) Sodium Potassium Chloride Carbon Dioxide Anion Gap BUN Creatinine Creat Clearance w eGFR Random Glucose Calcium Total Bilirubin AST ALT Alkaline Phosphatase Total Protein Albumin Urine Color Ltyellow Urine Appearance Slcloudy Urine pH 6.0 Ur Specific [place] 1.011 Urine Protein Negative Urine Glucose (UA) Negative Urine Ketones Negative Urine Blood 3+ H Urine Nitrite Negative Urine Bilirubin Negative Urine Urobilinogen Negative Ur Leukocyte Esterase 3+ H Urine WBC (Auto) 16 Urine RBC (Auto) 2 Ur Epithelial Cells Few Urine Bacteria Rare Urine Mucus Rare Active Medications Generic Name Dose Route Start Last Admin Trade Name Freq PRN Reason Stop Dose Admin Chlorhexidine Gluconate 1 applic 04/14/18 22:00 Hibiclens For Decolonization - TP HS SOLEDAD Hydrochlorothiazide 12.5 mg 04/14/18 16:00 04/14/18 16:14 Hctz - PO 12.5 mg DAILY SOLEDAD Administration Labetalol HCl 10 mg 04/14/18 16:25 Normodyne Injection - IVPUSH Q4H PRN HYPERTENSION Mupirocin 1 applic 04/14/18 22:00 Bactroban Ointment (For Decolonization) - NS 04/19/18 21:59 BID SOLEDAD
--- NOTE | 2018-04-14 21:37 | PN ---
Progress Note (short form) - Note Progress Note: Patient seen and examined at bedside in the ER. Patient denies any complaints at this time. She feels much bteer. Blood pressure has been well controlled. Patient has not gotten any IV meds since this morning. BP controlled with 12.5 HCTZ at 4pm. Denies any seizure like activity. PE: NAD AAOx3 RRR S1 S2 CTAB Soft non tender non distended obese strength in all extremities 5/5. Sensation intact CN 2-12 intact Patient can be downgraded to telemetry. Discussed with Dr. Rai and Dr. Byrd. Dr. Byrd agrees and has no objections to downgrading given normalization of BP and resolution of symptoms transfer order placed
[2018-04-14] MEDS ORDERED: LABETALOL HCL 200 MG TABLET (FP) PO SCH (22:00)
[2018-04-14] MEDS ORDERED: CHLORHEXIDINE GLUCONATE 4% CLEANSER FOR DECOLONIZATION TP SCH (22:00)
[2018-04-14] MEDS ORDERED: MUPIROCIN 2% TOPICAL OINTMENT FOR DECOLONIZATION NS SCH (22:00)
[2018-04-15 01:06] VITALS: BMI 38.9
[2018-04-15 06:16] LABS: INR 1.13 (0.83-1.09); PROTHROMBIN TIME (PATIENT) 13.3 SEC (9.7-13.0)
[2018-04-15 06:18] LABS: EOS % 3.7 % (0-4.5); HEMATOCRIT 38.2 % (32.4-45.2); HEMOGLOBIN 12.3 GM/dL (10.7-15.3); LYMPH % 33.6 % (8-40); MCH 26.7 pg (25.7-33.7); MCHC 32.3 g/dl (32.0-36.0); MEAN CELL VOLUME 82.7 fl (80-96); MEAN PLT VOLUME 8.3 fl (7.5-11.1); MONO % 7.5 % (3.8-10.2); NEUT % 54.2 % (42.8-82.8); PLATELET COUNT 376 K/MM3 (134-434); RBC 4.62 M/mm3 (3.60-5.2); RDW 14.5 % (11.6-15.6); WHITE BLOOD COUNT 5.4 K/mm3 (4.0-10.0)
[2018-04-15 06:33] LABS: ALK PHOS 118 U/L (45-117); ANION GAP 6 MMOL/L (8-16); BILIRUBIN,TOTAL 0.5 mg/dL (0.2-1); BLOOD UREA NITROGEN 8 mg/dL (7-18); CALCIUM 8.8 mg/dL (8.5-10.1); CHLORIDE 110 mmol/L (98-107); CO2 25 mmol/L (21-32); CREATININE 0.7 mg/dL (0.55-1.3); GLUCOSE,RANDOM 91 mg/dL (74-106); MAGNESIUM 2.1 mg/dL (1.8-2.4); PHOSPHOROUS 4.1 mg/dL (2.5-4.9); POTASSIUM 4.1 mmol/L (3.5-5.1); SGOT/AST 16 U/L (15-37); SGPT/ALT 21 U/L (13-61); SODIUM 142 mmol/L (136-145); TOT PROT 6.3 g/dl (6.4-8.2)
[2018-04-15] MEDS ORDERED: HYDROCHLOROTHIAZIDE 12.5 MG CAPSULE (FP) PO SCH (10:00)
[2018-04-15] MEDS ORDERED: PRENATAL VITAMINS W/ FOLIC ACID TABLET (FP) PO SCH (10:00)
--- NOTE | 2018-04-15 10:00 | PN ---
Progress Note (short form) - Note Progress Note: Consultation Note: cc: headache s: headache resolved. no chest pain, palps, dyspnea, edema. wants to go home. Current Medications Hydrochlorothiazide (Hctz -) 12.5 mg PO DAILY SOLEDAD Multivit/Folic Acid/Iron ( Vitamins (Sjr) -) 1 tab PO DAILY SOLEDAD Vital Signs Vital Signs Period Temp Pulse Resp BP Sys/Serrano Pulse Ox Last 24 Hr 98.3 F-99.6 F 69-96 18-20 120-156/69-86 98-100 nad no jvd rrr s1s2 no mrg cta bl nl eff aaox3 no le e/c/c abd nt nd pos bs no jaundice diaphoresis pos dp pt no carotid bruits cxr: possible chf ecg: sinus bradycardia, PACs echo 04/06: nl LVSF. nl RV. mild LAE. mild MR/TR. a/p: 27 f h/o eclampsia p/w HTN, headache HTN, eclampsia - no prior h/o HTN before - recently admitted for eclamptic seizure, BP initially elevated then improved however in light of recurrent HTN, possible subarachnoid hemorrhage will start anti-HTN agent - patient does not plan on breast feeding - continue HCTZ 12.5 mg daily, BP stable - BP may improve after immediate post period - no further inpatient cardiac work up, advised follow up with cardiology - appreciate medical cash poster and neuro recs ?Subarachnoid hemorrhage - possible, noted on MRI head during prior admission, patient left AMA prior to evaluation - CT head in ER did not show bleed - neuro consulted - hold aspirin, restart pending neuro recs afib: -pt with afib and rvr in ER, converted on own to SR during admission for eclamptic seizures, electrolyte abnormalities - defer rate control agent given bradycardia at baseline -tsh wnl -echo unremarkable -chadsvasc is 1 for female gender only so would not treat with AC, instead would give asa 81 if cleared per neuro as patient has possible subarachnoid hemorrhage on MRI last week, repeat CT head negative tob use: -smoking cessation discussed
[2018-04-15 10:34] VITALS: TEMP 98.4
--- NOTE | 2018-04-15 12:35 | EKG ---
Test Reason : Blood Pressure : / mmHG Vent. Rate : 082 BPM Atrial Rate : 082 BPM P-R Int : 146 ms QRS Dur : 070 ms QT Int : 380 ms P-R-T Axes : 062 071 057 degrees QTc Int : 443 ms NORMAL SINUS RHYTHM NORMAL ECG Confirmed by MD MONTY, REGINA ([id number]) on 04/15/2018 12:35:05 PM Referred By: Confirmed By:REGINA MILLAN MD
[2018-04-15 12:39] VITALS: BP 126/58; PULSE 56
--- NOTE | 2018-04-15 13:19 | PN ---
Teaching Attending Note Name of Resident: Dinesh Garcia ATTENDING PHYSICIAN STATEMENT I saw and evaluated the patient. I reviewed the resident's note and discussed the case with the resident. I agree with the resident's findings and plan as documented. SUBJECTIVE: Pt seen and examined in the ICU. No further headache. No nausea or vomiting. Feels at baseline. OBJECTIVE: Vital Signs Period Temp Pulse Resp BP Sys/Serrano Pulse Ox Last 24 Hr 98.3 F-99.6 F 56-96 18-20 120-154/58-86 98-100 Intake & Output 04/12/18 04/13/18 04/14/18 04/15/18 23:59 23:59 23:59 23:59 Intake Total 120 Balance 120 Weight 113.398 kg 113.398 kg Gen: NAD at rest Heart: RRR Lung: decreased breath sounds at the bases Abd: soft, nontender Ext: no edema CBC, BMP 04/15/18 05:30 04/15/18 05:30 Active Medications Hydrochlorothiazide (Hctz -) 12.5 mg PO DAILY SOLEDAD Last Admin: 04/15/18 12:46 Dose: 12.5 mg Multivit/Folic Acid/Iron ( Vitamins (Sjr) -) 1 tab PO DAILY SOLEDAD ASSESSMENT AND PLAN: Recent Post Eclampsia HTN - BP control - DVT prophylaxis - can monitor on floor
--- NOTE | 2018-04-15 14:24 | PN ---
Physical Exam: SUBJECTIVE: Pt seen and examined in the ICU. No further headache. No nausea or vomiting. Denies cp, sob. Feels at baseline. OBJECTIVE: Vital Signs Period Temp Pulse Resp BP Sys/Serrano Pulse Ox Last 24 Hr 98.3 F-99.6 F 56-96 18-20 120-154/58-86 98-100 GENERAL: AOX3 NAD HEAD: NCAT EYES: Pupils equal, round and reactive to light, extraocular movements intact, injected right conjunctiva EARS, NOSE, THROAT: oropharynx clear without exudates. MMM NECK: supple without lymphadenopathy, JVD, or masses. LUNGS: CTAB HEART: RRR, normal S1 and S2 ABDOMEN: Soft, NTND, normoactive bowel sounds UPPER EXTREMITIES: 2+ pulses, No peripheral edema. LOWER EXTREMITIES: 2+ pulses, No peripheral edema. NEUROLOGICAL: Cranial nerves II-XII intact. Normal speech. PSYCHIATRIC: Cooperative. Laboratory Results - last 24 hr 04/15/18 04/15/18 04/15/18 05:30 05:30 05:30 WBC 5.4 RBC 4.62 Hgb 12.3 Hct 38.2 MCV 82.7 MCH 26.7 MCHC 32.3 RDW 14.5 Plt Count 376 MPV 8.3 Absolute Neuts (auto) 2.9 Neutrophils % 54.2 Lymphocytes % 33.6 Monocytes % 7.5 Eosinophils % 3.7 Basophils % 1.0 Nucleated RBC % 0 PT with INR 13.30 H INR 1.13 H Sodium 142 Potassium 4.1 Chloride 110 H Carbon Dioxide 25 Anion Gap 6 L BUN 8 Creatinine 0.7 Creat Clearance w eGFR > 60 Random Glucose 91 Calcium 8.8 Phosphorus 4.1 Magnesium 2.1 Total Bilirubin 0.5 AST 16 ALT 21 Alkaline Phosphatase 118 H Total Protein 6.3 L Albumin 3.0 L Blood Type Antibody Screen 04/15/18 05:30 WBC RBC Hgb Hct MCV MCH MCHC RDW Plt Count MPV Absolute Neuts (auto) Neutrophils % Lymphocytes % Monocytes % Eosinophils % Basophils % Nucleated RBC % PT with INR INR Sodium Potassium Chloride Carbon Dioxide Anion Gap BUN Creatinine Creat Clearance w eGFR Random Glucose Calcium Phosphorus Magnesium Total Bilirubin AST ALT Alkaline Phosphatase Total Protein Albumin Blood Type B POSITIVE Antibody Screen Negative Active Medications Generic Name Dose Route Start Last Admin Trade Name Freq PRN Reason Stop Dose Admin Hydrochlorothiazide 12.5 mg 04/15/18 10:00 04/15/18 12:46 Hctz - PO 12.5 mg DAILY SOLEDAD Administration Multivit/Folic Acid/Iron 1 tab 04/15/18 10:00 Vitamins (Sjr) - PO DAILY SOLEDAD ASSESSMENT/PLAN: 27 yo F, one week ( delivery), presented to the ED because of 10/10 diffuse headache that woke her up from bed this morning and Recent Post Eclampsia Neuro #Headache - resolved. #questionable subarachnoid bleed on previous MRI -Recent Eclamptic seizures -Given 4mg Magnesium in ER -FU repeat Mag Level -neuro checks -Head CT with no acute bleeds -DTRs -OBGYN on board -Neuro consulted: Dr. Espana CV #HTN -Labetolol PRN -daily HCTZ 12.5 -current BP wnl -monitor BP -cardio on board FEN -no iv fluids -monitor -sodium controlled diet PPX -SCDs Dispo pt can be transfered to floor. further care per primary team/PCP. Visit type - Emergency Visit Emergency Visit: Yes ED Registration Date: 04/14/18 Care time: The patient presented to the Emergency Department on the above date and was hospitalized for further evaluation of their emergent condition. - New Patient This patient is new to me today: Yes Date on this admission: 04/15/18 - Critical Care Critical Care patient: Yes Total Critical Care Time (in minutes): 35 Critical Care Statement: The care of this patient involved high complexity decision making to prevent further life threatening deterioration of the patient 's condition and/or to evaluate & treat vital organ system(s) failure or risk of failure.
--- NOTE | 2018-04-15 18:34 | DS ---
Physical Examination Vital Signs: Vital Signs Temperature 98.4 F 04/15/18 10:34 Pulse Rate 56 L 04/15/18 12:38 Respiratory Rate 18 04/15/18 12:38 Blood Pressure 126/58 L 04/15/18 12:38 O2 Sat by Pulse Oximetry (%) 98 04/15/18 07:41 Labs: CBC, BMP 04/15/18 05:30 04/15/18 05:30 Discharge Summary Reason For Visit: HYPERTENSIVE EMERGENCY,PRE ECLAMPSIA, Condition: Fair - Instructions Referrals: Charlotte Rodríguez MD [Primary Care Provider] - Disposition: AGAINST MEDICAL ADVICE - Home Medications Comprehensive Discharge Medication List: Ambulatory Orders Hydrochlorothiazide [Hctz -] 12.5 mg PO DAILY #30 cap 04/15/18 AMA
--- NOTE | 2018-04-16 06:23 | CON.OBG ---
Consult Consult Specialty:: Gynecology Reason for Consultation:: Hypertension. recent Eclampsia - History of Present Illness Chief Complaint: Severe headache. Hypertension History of Present Illness: 27 yo known to me who came back to ER after signing out AMA due to eclampsia. Pt with recent CS done on does not report seizures but has elevated BP pt did not get meds after last admission. 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) ...LMP: 04/15/18 ...: No (SP Section) - Past Surgical History Past Surgical History: Yes: - Alcohol/Substance Use Hx Alcohol Use: No History of Substance Use: reports: None - Smoking History Smoking history: Never smoked Have you smoked in the past 12 months: No Aproximately how many cigarettes per day: 5 Home Medications - Allergies Allergies/Adverse Reactions: Allergies Allergy/AdvReac Type Severity Reaction Status Date / Time No Known Allergies Allergy Verified 04/14/18 07:12 - Home Medications Home Medications: Ambulatory Orders Hydrochlorothiazide [Hctz -] 12.5 mg PO DAILY #30 cap 04/15/18 Review of Systems - Review of Systems Constitutional: reports: Other (Headach) Eyes: reports: No Symptoms HENT: reports: No Symptoms Neck: reports: No Symptoms Cardiovascular: reports: No Symptoms Respiratory: reports: No Symptoms Gastrointestinal: reports: No Symptoms Genitourinary: reports: No Symptoms Breasts: reports: No Symptoms Reported Musculoskeletal: reports: No Symptoms Integumentary: reports: No Symptoms Neurological: reports: Headache Endocrine: reports: No Symptoms Hematology/Lymphatic: reports: No Symptoms Psychiatric: reports: No Symptoms 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: Vital Signs Temperature 98.4 F 04/15/18 10:34 Pulse Rate 56 L 04/15/18 12:38 Respiratory Rate 18 04/15/18 12:38 Blood Pressure 126/58 L 04/15/18 12:38 O2 Sat by Pulse Oximetry (%) 98 04/15/18 07:41 Constitutional: Yes: Well Nourished, No Distress, Obese Gastrointestinal: Yes: WNL, Soft, Abdomen, Obese ....Post : Yes: Uterus firm, Uterus non-tender Musculoskeletal: Yes: WNL Extremities: Yes: WNL Wound/Incision: Yes: Clean/Dry, Well Approximated Labs: CBC, BMP 04/15/18 05:30 04/15/18 05:30 Problem List - Problems (1) Maternal hypertension affecting puerperium Code(s): O16.5 - UNSPECIFIED MATERNAL HYPERTENSION, COMP THE PUERPERIUM (2) section Code(s): Z98.89 - OTHER SPECIFIED POSTPROCEDURAL STATES * DO NOT USE * Assessment/Plan Hypertension Eclampsia on last admission POst CS mild hemorrhage on MRI Plan repeat MRI of brain neurology consult admission to ICU Mg SO4 antihypertensive ' DC home after 24 hours- 48 hours on Mg
== END 2018-04-15 13:15 | disposition left against medical advice (07) | DRG 561 ==
LOC: JER 06:42 → JERBED 10:06 → JICU 04-15 00:42
PROVIDERS: ADMIT Internal Medicine; ATTEND Internal Medicine
DX: O15.2 Eclampsia complicating the puerperium (principal); R51 Headache; I48.91 Unspecified atrial fibrillation; R56.9 Unspecified convulsions; O99.215 Obesity complicating the puerperium; E66.8 Other obesity; Z68.38 Body mass index [BMI] 38.0-38.9, adult
CPT/HCPCS: 36415; 70450-TC; 80053; 81003; 81015; 83735; 84100; 85025; 85610; 85730; 86850; 86900; 86901; 87086; 93005; 93010; 99285-25

== ENCOUNTER 2019-01-11 13:59 | Emergency (ER) | payer OTHER ==
[2019-01-11 14:06] VITALS: BP 119/95; PULSE 63; TEMP 98.3; BMI 43.2
[2019-01-11] MEDS ORDERED: TOBRAMYCIN 0.3% OPHTH SOLN 5 ML BOTTLE OD ONE (14:44)
--- NOTE | 2019-01-11 14:46 | PDOC ---
History of Present Illness - General Chief Complaint: Eye Problem Stated Complaint: LT EYE PINK EYE Time Seen by Provider: 01/11/19 14:40 History Source: Patient Exam Limitations: No Limitations - History of Present Illness Initial Comments: 01/11/19 14:48 THIS morning with left eye melted shut with thick yellowish drainage, and erythema. Has some swelling. No recent trauma, no changes in vision, no one else at home is sick. Occurred: reports: this morning Severity: reports: mild, moderate Method of Injury: Yes: unknown Modifying Factors: improves with: None Loss of Consciousness: no loss of consciousness Past History - Travel Traveled outside of the country in the last 30 days: No Close contact w/someone who was outside of country & ill: No - Past Medical History Allergies/Adverse Reactions: Allergies Allergy/AdvReac Type Severity Reaction Status Date / Time No Known Allergies Allergy Verified 01/11/19 14:04 Home Medications: Ambulatory Orders Hydrochlorothiazide [Hctz -] 12.5 mg PO DAILY #30 cap 04/15/18 Tobramycin 0.3% Ophth Soln [Tobrex Ophthalmic Solution -] 2 drop OS QID #1 drops 01/11/19 Asthma: No Cancer: No Cardiac Disorders: No CVA: No COPD: No DVT: No Dementia: No Diabetes: No HTN: No Seizures: No Thyroid Disease: No - Immunization History Td Vaccination: Yes TDAP Vaccination: Yes Immunization Up to Date: Yes - Suicide/Smoking/Psychosocial Hx Smoking History: Current every day smoker Have you smoked in the past 12 months: No Number of Cigarettes Smoked Daily: 10 Information on smoking cessation initiated: No Hx Alcohol Use: No Drug/Substance Use Hx: No Substance Use Type: None Hx Substance Use Treatment: No Review of Systems - Review of Systems Able to Perform ROS?: Yes Is the patient limited Namibian proficient: Yes Constitutional: Yes: Symptoms Reported, See HPI. No: Fever, Malaise HEENTM: Yes: See HPI, Eye Pain, Tearing. No: Symptoms Reported, Mouth Swelling Respiratory: No: Symptoms reported Integumentary: Yes: Symptoms Reported All Other Systems: Reviewed and Negative *Physical Exam - Vital Signs Last Vital Signs Temp Pulse Resp BP Pulse Ox 98.3 F 63 16 119/95 99 01/11/19 14:02 01/11/19 14:02 01/11/19 14:02 01/11/19 14:02 01/11/19 14:02 - Physical Exam General Appearance: Yes: Nourished, Appropriately Dressed, Apparent Distress HEENT: positive: HAKEEM, Normal ENT Inspection, TMs Normal, Pharynx Normal, Other (left eye injected, lids mildly swollen, with yellowish drainage noted.) Neck: positive: Supple. negative: Tender Respiratory/Chest: positive: Lungs Clear ( Visual acuity within normal limits), Normal Breath Sounds Extremity: positive: Normal Capillary Refill, Normal Inspection Integumentary: positive: Normal Color, Dry, Warm Neurologic: positive: 3d technologist II-XII NML intact, Fully Oriented, Alert, Normal Mood/ Affect, Normal Response, Motor Strength /5 Progress Note - Progress Note Progress Note: Conjunctivitis, we'll treat with tobramycin *DC/Admit/Observation/Transfer Diagnosis at time of Disposition: Acute conjunctivitis, left eye Qualifiers: Acute conjunctivitis type: bacterial Qualified Code(s): H10.32 - Unspecified acute conjunctivitis, left eye - Discharge Dispostion Disposition: HOME Condition at time of disposition: Stable Decision to Admit order: No - Referrals - Patient Instructions Printed Discharge Instructions: DI for Conjunctivitis Additional Instructions: Rest, avoid rubbing eyes Wash hands frequently as this is very contagious Wash hands, use eye drops as directed, wash hands after use Do not share eyedrops with other person to may become infected as this will infect them Avoid contact with others until redness and discharge is gone from eyes. Followup with ophthalmology or private physician as needed - Post Discharge Activity
[2019-01-11] MEDS ORDERED: TOBRAMYCIN 0.3% OPHTH SOLN 5 ML BOTTLE ONE (15:01)
== END 2019-01-11 15:06 | disposition home or self-care (01) ==
LOC: JERFT 13:59
DX: H10.32 Unspecified acute conjunctivitis, left eye (principal)
CPT/HCPCS: 99281-25

== ENCOUNTER 2020-03-06 14:58 | Inpatient (IN) | payer OTHER ==
[2020-03-06 15:07] VITALS: BMI 40.3
--- OUTSIDE RECORDS SUMMARY | 2020-03-06 15:19 | XMS ---
:1990 Author Organization [facility] Support Name Relationship Address Phone UE Unavailable Unavailable Unavailable ELZA STEVENSON MOTHER [address] [phone] [place] [address] Re-disclosure Warning The records that you are about to access may contain information from federally- assisted alcohol or drug abuse programs. If such information is present, then the following federally mandated warning applies: This information has been disclosed to you from records protected by federal confidentiality rules (42 CFR part 2). The federal rules prohibit you from making any further disclosure of this information unless further disclosure is expressly permitted by the written consent of the person to whom it pertains or as otherwise permitted by 42 CFR part 2. A general authorization for the release of medical or other information is NOT sufficient for this purpose. The Federal rules restrict any use of the information to criminally investigate or prosecute any alcohol or drug abuse patient.The records that you are about to access may contain highly sensitive health information, the redisclosure of which is protected by Article 27-F of the [facility] Public Health law. If you continue you may haveaccess to information: Regarding HIV / AIDS; Provided by facilities licensed or operated by the [facility] Office of Mental Health; or Provided by the [facility] Office for People With Developmental Disabilities. If such information is present, then the following [facility] mandated warning applies: This information has been disclosed to you from confidential records which are protected by state law. State law prohibits you from making any further disclosure of this information without the specific written consent of the person to whom it pertains, or as otherwise permitted by law. Any unauthorized further disclosure in violation of state law may result in a fine or usp sentence or both. A general authorization for the release of medical or other information is NOT sufficient authorization for further disclosure. Insurance Providers Payer name Policy type Policy ID Covered Covered green party's Policy P peter / Coverage green party ID relationship to Awad Inf ormation type awad [place] [id number] SP [id number] O [place] [id number] [place] [id number] O MEDICAID [id number] SP [id number] [place] [id number] SP [id number] 500 HEALTH-MVP [place] [facility] [id number] S [id number] Options MKD [place] [id number] S [id number] Vision MKD Dental [id number] S [id number] S-[id number] [employer] MKD Medicaid [id number] S [id number] Regular Clinic Visit MVP Medicaid [id number] S [id number] Managed Care
[2020-03-06] MEDS ORDERED: morphine CARPU-JECT 2 MG/1 ML DISP.SYRIN IVPUSH ONE (15:40)
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
[2020-03-06] MEDS ORDERED: MORPHINE SULFATE 2 MG/ML VIAL ONE (15:54)
[2020-03-06 16:27] LABS: BASO % 0.7 % (0-2.0); HEMATOCRIT 39.2 % (32.4-45.2); HEMOGLOBIN 12.9 GM/dL (10.7-15.3); LYMPH % 18.8 % (8-40); MCH 27.2 pg (25.7-33.7); MCHC 32.9 g/dl (32.0-36.0); MEAN CELL VOLUME 82.7 fl (80-96); MEAN PLT VOLUME 9.4 fl (7.5-11.1); MONO % 8.2 % (3.8-10.2); NEUT % 72.3 % (42.8-82.8); PLATELET COUNT 241 K/MM3 (134-434); RBC 4.74 M/mm3 (3.60-5.2); RDW 15.7 % (11.6-15.6); WHITE BLOOD COUNT 6.2 K/mm3 (4.0-10.0)
[2020-03-06 16:42] LABS: CHLORIDE 107 mmol/L (98-107); POTASSIUM 4.1 mmol/L (3.5-5.1); SODIUM 135 mmol/L (136-145)
[2020-03-06 16:44] LABS: ALBUMIN 3.7 g/dl (3.4-5.0); ANION GAP 7 MMOL/L (8-16); CALCIUM 9.3 mg/dL (8.5-10.1); CO2 21 mmol/L (21-32); GLUCOSE,RANDOM 98 mg/dL (74-106)
[2020-03-06 16:48] LABS: CREATININE 0.7 mg/dL (0.55-1.3); SGOT/AST 21 U/L (15-37); SGPT/ALT 18 U/L (13-61)
[2020-03-06 16:49] LABS: BILIRUBIN,TOTAL 0.7 mg/dL (0.2-1); TOT PROT 6.9 g/dl (6.4-8.2)
[2020-03-06 16:50] LABS: ALK PHOS 83 U/L (45-117)
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
[2020-03-06] MEDS ORDERED: BACITRACIN 0.9 GM PACKET ONE (18:38)
[2020-03-06] MEDS ORDERED: morphine CARPU-JECT 4 MG/1 ML DISP.SYRIN IVPUSH ONE (19:00)
[2020-03-06] MEDS ORDERED: morphine SULFATE 4 MG/ML VIAL ONE (19:06)
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
[2020-03-06] MEDS ORDERED: ACETAMINOPHEN 1000 MG/100 ML VIAL (NON FORMULARY) IVPB ONE (19:49)
[2020-03-06] MEDS ORDERED: diazePAM 5 MG TABLET PO ONE (19:49)
[2020-03-06] MEDS ORDERED: DIPHTH,PERTUSS(ACELL),TET 0.5 ML DISP.SYRIN IM ONE (19:51)
[2020-03-06] MEDS ORDERED: ACETAMINOPHEN INJECTION 100 ML IVPB ONE (20:03)
[2020-03-06] MEDS ORDERED: diazePAM 5 MG TABLET ONE (20:04)
--- OUTSIDE RECORDS SUMMARY | 2020-03-06 20:12 | XMS ---
:1990 Author Organization [facility] Support Name Relationship Address Phone UE, UNEMPLOYED Unavailable Unavailable Unavailable MCKENZIE CUADRA PARTNER [address] [place] [address] UE Unavailable Unavailable Unavailable ELZA STEVENSON MOTHER [address] [place] [address] Re-disclosure Warning The records that you are [...] is protected by Article 27-F of the [facility] Public Health law. If you continue you may haveaccess to information: Regarding HIV / AIDS; Provided by facilities licensed or operated by the [facility] Office of Mental Health; or Provided by the [facility] Office for People With Developmental Disabilities. If such information is present, then the following [facility] mandated warning applies: This information has [...] law may result in a fine or retirement sentence or both. A general authorization for the release of medical or other information is NOT sufficient authorization for further disclosure. Insurance Providers Payer name Policy type Policy ID Covered Covered republican's Policy P peter / Coverage republican ID relationship to Resendez Inf ormation type resendez PENDING WC/NF [id number] SP [id number] ONLY [facility] MEDICAID [id number] SP [id number] [facility] MEDICAID [id number] SP [id number] [facility] MEDICAID [id number] SP [id number] [place] [id number] SP [id number] 500 HEALTH-P [facility] [id number] S [id number] Options MKD [place] [id number] S [id number] Vision MKD Dental [id number] S [id number] S-0 [employer] MKD Medicaid [id number] S [id number] Regular Clinic Visit [facility] Medicaid [id number] S [id number] [facility] Care
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
[2020-03-06] MEDS ORDERED: LORazepam 2 MG TABLET PO PRN (20:35)
[2020-03-06] MEDS ORDERED: SODIUM CHLORIDE 1,000 ML IV SCH (20:45)
[2020-03-07] MEDS ORDERED: traMADol HCL 50 MG TABLET ONE ×2 (03:00→08:54)
[2020-03-07] MEDS: traMADol HCL 50 MG TABLET PO PRN ×2 (03:03→09:05)
[2020-03-07 06:31] VITALS: BP 113/64; PULSE 70; TEMP 98.6
[2020-03-07 06:52] LABS: BASO % 0.4 % (0-2.0); EOS % 0.2 % (0-4.5); HEMATOCRIT 36.2 % (32.4-45.2); HEMOGLOBIN 12.1 GM/dL (10.7-15.3); LYMPH % 33.9 % (8-40); MCH 27.3 pg (25.7-33.7); MCHC 33.3 g/dl (32.0-36.0); MEAN CELL VOLUME 81.8 fl (80-96); MONO % 10.1 % (3.8-10.2); NEUT % 55.4 % (42.8-82.8); PLATELET COUNT 230 K/MM3 (134-434); RBC 4.42 M/mm3 (3.60-5.2); WHITE BLOOD COUNT 4.7 K/mm3 (4.0-10.0)
[2020-03-07 07:26] LABS: CHLORIDE 109 mmol/L (98-107); SODIUM 139 mmol/L (136-145)
[2020-03-07 07:27] LABS: CALCIUM 9.1 mg/dL (8.5-10.1)
[2020-03-07 07:28] LABS: ANION GAP 7 MMOL/L (8-16); BLOOD UREA NITROGEN 7.8 mg/dL (7-18); CO2 23 mmol/L (21-32); GLUCOSE,RANDOM 90 mg/dL (74-106)
[2020-03-07 07:32] LABS: CREATININE 0.6 mg/dL (0.55-1.3)
[2020-03-07] MEDS ORDERED: MULTIVITAMINS (DAILY MVI) TABLET (FP) ONE (08:53)
[2020-03-07] MEDS ORDERED: THIAMINE HCL 100 MG TABLET (FP) ONE (08:54)
[2020-03-07] MEDS ORDERED: MULTIVITAMINS (DAILY MVI) TABLET (FP) PO SCH (10:00)
[2020-03-07] MEDS ORDERED: THIAMINE HCL 100 MG TABLET (FP) PO SCH (10:00)
[2020-03-07] MEDS ORDERED: ACETAMINOPHEN 500 MG TABLET (FP) PO PRN (11:07)
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
== END 2020-03-07 12:41 | disposition home or self-care (01) | DRG 384 ==
LOC: JER 14:58 → JERBED 19:51
PROVIDERS: ADMIT Internal Medicine; ATTEND Family Medicine
PROC: 0HQ0XZZ Repair Scalp Skin, External Approach (ICD-10-PCS; principal; 2020-03-06)
PROC: HZ2ZZZZ Detoxification Services for Substance Abuse Treatment (ICD-10-PCS; 2020-03-06)
DX: S01.01XA Laceration without foreign body of scalp, initial encounter (principal); S80.12XA Contusion of left lower leg, initial encounter; V89.2XXA Person injured in unspecified motor-vehicle accident, traffic, initial encounter; Y93.89 Activity, other specified; Y92.89 Other specified places as the place of occurrence of the external cause; Y99.9 Unspecified external cause status; I10 Essential (primary) hypertension; E66.9 Obesity, unspecified; Z68.41 Body mass index [BMI] 40.0-44.9, adult; F17.210 Nicotine dependence, cigarettes, uncomplicated; F10.10 Alcohol abuse, uncomplicated; Y90.5 Blood alcohol level of 100-119 mg/100 ml
CPT/HCPCS: 36415; 70450-TC; 70486-TC; 72125-TC; 73110-TC-RT-FY; 73130-TC-RT-FY; 73701-TC-RT; 80048; 80053; 80307; 82553; 82962; 84484; 84703; 85025; 99285-25; C9803; Q9967; U0003

== ENCOUNTER 2020-12-07 10:37 | Emergency (ER) | payer OTHER ==
[2020-12-07 11:25] VITALS: BMI 32.3
[2020-12-07] MEDS ORDERED: SODIUM CHLORIDE 0.9% 500 ML INFUS.BAG IV ONE ×2 (11:43→11:46)
[2020-12-07] MEDS ORDERED: KETOROLAC TROMETHAMINE 15 MG/ML VIAL IVPUSH ONE (11:43)
[2020-12-07] MEDS ORDERED: KETOROLAC TROMETHAMINE 15 MG/ML VIAL ONE (12:58)
[2020-12-07 13:11] LABS: BASO % 0.9 % (0-2.0); EOS % 0.5 % (0-4.5); HEMATOCRIT 39.7 % (32.4-45.2); HEMOGLOBIN 13.2 GM/dL (10.7-15.3); LYMPH % 7.4 % (8-40); MCH 26.6 pg (25.7-33.7); MCHC 33.3 g/dl (32.0-36.0); MEAN PLT VOLUME 8.1 fl (7.5-11.1); MONO % 4.2 % (3.8-10.2); PLATELET COUNT 305 10^3/uL (134-434); RBC 4.96 M/mm3 (3.60-5.2); RDW 15.9 % (11.6-15.6); WHITE BLOOD COUNT 8.1 K/mm3 (4.0-10.0)
[2020-12-07 13:34] LABS: CHLORIDE 108 mmol/L (98-107); SODIUM 139 mmol/L (136-145)
[2020-12-07 13:36] LABS: ALBUMIN 3.8 g/dl (3.4-5.0); ANION GAP 7 MMOL/L (8-16); BLOOD UREA NITROGEN 8.4 mg/dL (7-18); CALCIUM 9.5 mg/dL (8.5-10.1); CO2 23 mmol/L (21-32); GLUCOSE,RANDOM 98 mg/dL (74-106)
[2020-12-07] MEDS ORDERED: ALBUTEROL SO4 2.5/IPRATROPIUM 0.5 INH SOL 3 ML VIAL.NEB. NEB ONE ×2 (13:38→14:27)
[2020-12-07] MEDS ORDERED: ACETAMINOPHEN 1000 MG/100 ML VIAL (NON FORMULARY) IVPB ONE (13:38)
[2020-12-07 13:39] LABS: CREATININE 0.8 mg/dL (0.55-1.3); SGOT/AST 14 U/L (15-37); SGPT/ALT 18 U/L (13-61)
[2020-12-07 13:40] LABS: BILIRUBIN,TOTAL 0.5 mg/dL (0.2-1)
[2020-12-07 13:42] LABS: ALK PHOS 98 U/L (45-117)
[2020-12-07] MEDS ORDERED: ACETAMINOPHEN INJECTION 100 ML IVPB ONE (14:27)
[2020-12-07 15:38] VITALS: BP 104/57; PULSE 88; TEMP 97.5
== END 2020-12-07 16:17 | disposition home or self-care (01) ==
LOC: JER 10:37
PROC: 3E0333Z Introduction of Anti-inflammatory into Peripheral Vein, Percutaneous Approach (ICD-10-PCS; principal; 2020-12-07)
PROC: 3E0F7GC Introduction of Other Therapeutic Substance into Respiratory Tract, Via Natural or Artificial Opening (ICD-10-PCS; 2020-12-07)
PROC: 3E0333Z Introduction of Anti-inflammatory into Peripheral Vein, Percutaneous Approach (ICD-10-PCS; 2020-12-07)
DX: R51.9 Headache, unspecified (principal); R11.0 Nausea; R05 Cough; Z11.52 Encounter for screening for COVID-19
CPT/HCPCS: 36415; 71045-TC-FY; 80053; 82550; 83605; 84484; 85025; 87807; 93005; 93010; 99285-25; C9803; J0131; U0003; U0005

== ENCOUNTER 2022-11-01 15:27 | Emergency (ER) | payer OTHER ==
[2022-11-01 15:41] VITALS: BP 113/56; PULSE 69; RESP 16; TEMP 98; BMI 41.9
[2022-11-01] MEDS ORDERED: IBUPROFEN 600 MG TABLET (FP) PO ONE ×2 (15:53→15:55)
== END 2022-11-01 16:53 | disposition home or self-care (01) ==
LOC: JERFT 15:27
DX: S93.402A Sprain of unspecified ligament of left ankle, initial encounter (principal); M25.572 Pain in left ankle and joints of left foot; M25.472 Effusion, left ankle; W01.0XXA Fall on same level from slipping, tripping and stumbling without subsequent striking against object, initial encounter; Y93.89 Activity, other specified; Y92.009 Unspecified place in unspecified non-institutional (private) residence as the place of occurrence of the external cause
CPT/HCPCS: 73610-TC-RT-FY; 99283-25

== ENCOUNTER 2023-02-18 16:35 | Emergency (ER) | payer OTHER ==
[2023-02-18 16:53] VITALS: BMI 40.4
[2023-02-18] MEDS ORDERED: SODIUM CHLORIDE 0.9% 500 ML INFUS.BAG IV ONE (17:14)
[2023-02-18] MEDS ORDERED: ONDANSETRON 4 MG/2 ML VIAL IVPUSH ONE (17:14)
[2023-02-18] MEDS ORDERED: ACETAMINOPHEN 1000 MG/100 ML BAG IVPB ONE (17:15)
[2023-02-18] MEDS ORDERED: FAMOTIDINE 20 MG/50 ML IVPB 20 MG/50 ML MG IVPB ONE (17:15)
[2023-02-18] MEDS ORDERED: ONDANSETRON 4 MG/2 ML VIAL ONE (17:21)
[2023-02-18] MEDS ORDERED: FAMOTIDINE 10 MG/ML VIAL IVPB ONE (17:21)
[2023-02-18] MEDS ORDERED: ACETAMINOPHEN INJECTION 100 ML IVPB ONE (17:21)
[2023-02-18 17:26] LABS: BASO % 0.2 % (0-2.0); EOS % 0.1 % (0-4.5); HEMATOCRIT 39.4 % (32.4-45.2); HEMOGLOBIN 13.5 GM/dL (10.7-15.3); LYMPH % 5.9 % (8-40); MCH 27.7 pg (25.7-33.7); MCHC 34.3 g/dl (32.0-36.0); MEAN CELL VOLUME 80.7 fl (80-96); MEAN PLT VOLUME 8.7 fl (7.5-11.1); MONO % 5.6 % (3.8-10.2); NEUT % 88.2 % (42.8-82.8); PLATELET COUNT 276 10^3/uL (134-434); RBC 4.88 M/mm3 (3.60-5.2); WHITE BLOOD COUNT 10.3 K/mm3 (4.0-10.0)
[2023-02-18 17:38] LABS: CHLORIDE 105 mmol/L (98-107); SODIUM 131 mmol/L (136-145)
[2023-02-18 17:39] LABS: CALCIUM 8.6 mg/dL (8.5-10.1)
[2023-02-18 17:41] LABS: ALBUMIN 3.2 g/dl (3.4-5.0); BLOOD UREA NITROGEN 7.5 mg/dL (7-18); CO2 22 mmol/L (21-32); GLUCOSE,RANDOM 104 mg/dL (74-106); LIPASE 50 U/L (73-393)
[2023-02-18 17:44] LABS: CREATININE 0.8 mg/dL (0.55-1.3); SGOT/AST 56 U/L (15-37)
[2023-02-18 17:45] LABS: TOT PROT 7.3 g/dl (6.4-8.2)
[2023-02-18 17:46] LABS: ALK PHOS 93 U/L (45-117); BILIRUBIN,TOTAL 0.7 mg/dL (0.2-1)
[2023-02-18 17:49] LABS: ANION GAP 5 MMOL/L (8-16); POTASSIUM 7.1 mmol/L (3.5-5.1); SGPT/ALT 19 U/L (13-61)
[2023-02-18 18:39] LABS: POTASSIUM 3.4 mmol/L (3.5-5.1)
[2023-02-18 18:41] LABS: MAGNESIUM 1.3 mg/dL (1.8-2.4)
[2023-02-18] MEDS ORDERED: MAGNESIUM SULFATE IN WATER 2 GM/50 ML IVPB IVPB ONE ×2 (18:47→18:58)
[2023-02-18] MEDS ORDERED: AZITHROMYCIN 500 MG TABLET PO ONE (20:07)
[2023-02-18] MEDS ORDERED: AZITHROMYCIN 500 MG TABLET ONE (20:12)
[2023-02-18 21:24] VITALS: BP 115/70; PULSE 78; RESP 20; TEMP 101.8
== END 2023-02-18 21:41 | disposition home or self-care (01) ==
LOC: JER 16:35
PROC: 3E033GC Introduction of Other Therapeutic Substance into Peripheral Vein, Percutaneous Approach (ICD-10-PCS; principal; 2023-02-18)
PROC: 3E033GC Introduction of Other Therapeutic Substance into Peripheral Vein, Percutaneous Approach (ICD-10-PCS; 2023-02-18)
PROC: 3E033NZ Introduction of Analgesics, Hypnotics, Sedatives into Peripheral Vein, Percutaneous Approach (ICD-10-PCS; 2023-02-18)
PROC: 3E033GC Introduction of Other Therapeutic Substance into Peripheral Vein, Percutaneous Approach (ICD-10-PCS; 2023-02-18)
DX: R50.9 Fever, unspecified (principal); R11.2 Nausea with vomiting, unspecified; J02.0 Streptococcal pharyngitis; H92.02 Otalgia, left ear; R00.0 Tachycardia, unspecified; Z20.822 Contact with and (suspected) exposure to COVID-19
CPT/HCPCS: 0241U-QW; 36415; 80053; 83690; 83735; 84132; 84703; 85025; 87651; 99284-25

== ENCOUNTER 2023-02-21 10:23 | Emergency (ER) | payer OTHER ==
[2023-02-21 10:31] VITALS: BP 116/79; PULSE 83; RESP 18; TEMP 98; BMI 39.7
== END 2023-02-21 11:15 | disposition left against medical advice (07) ==
LOC: JER 10:23
DX: H92.01 Otalgia, right ear (principal); J02.0 Streptococcal pharyngitis
CPT/HCPCS: 99281-25

== ENCOUNTER 2023-02-22 20:57 | Emergency (ER) | payer OTHER ==
[2023-02-22 21:06] VITALS: TEMP 100.2; BMI 40.3
[2023-02-22] MEDS ORDERED: DEXAMETHASONE SOD PHOSPHATE 10 MG/1 ML VIAL IVPUSH ONE (21:47)
[2023-02-22] MEDS ORDERED: KETOROLAC TROMETHAMINE 30 MG/1 ML VIAL IVPUSH ONE (21:47)
[2023-02-22] MEDS ORDERED: SODIUM CHLORIDE 0.9% 500 ML INFUS.BAG IV ONE (21:58)
[2023-02-22] MEDS ORDERED: DEXAMETHASONE SOD PHOSPHATE 10 MG/1 ML VIAL ONE (22:09)
[2023-02-22 22:27] LABS: BASO % 0.7 % (0-2.0); EOS % 0.2 % (0-4.5); HEMATOCRIT 43.4 % (32.4-45.2); HEMOGLOBIN 14.2 GM/dL (10.7-15.3); MCHC 32.8 g/dl (32.0-36.0); MEAN CELL VOLUME 82.2 fl (80-96); MEAN PLT VOLUME 8.4 fl (7.5-11.1); NEUT % 75.1 % (42.8-82.8); PLATELET COUNT 366 10^3/uL (134-434); RBC 5.28 M/mm3 (3.60-5.2); RDW 14.3 % (11.6-15.6); WHITE BLOOD COUNT 11.7 K/mm3 (4.0-10.0)
[2023-02-22 22:44] LABS: POTASSIUM 3.4 mmol/L (3.5-5.1)
[2023-02-22 22:46] LABS: BLOOD UREA NITROGEN 8.9 mg/dL (7-18); CALCIUM 9.6 mg/dL (8.5-10.1)
[2023-02-22 22:47] LABS: ALBUMIN 3.4 g/dl (3.4-5.0)
[2023-02-22 22:50] LABS: CREATININE 0.9 mg/dL (0.55-1.3)
[2023-02-22 22:51] LABS: BILIRUBIN,TOTAL 0.6 mg/dL (0.2-1); TOT PROT 7.9 g/dl (6.4-8.2)
[2023-02-22] MEDS ORDERED: POTASSIUM CHLORIDE ORAL LIQUID 20 MEQ/15 ML PO ONE (22:59)
[2023-02-22] MEDS ORDERED: POTASSIUM CHLORIDE ORAL LIQUID 20 MEQ/15 ML ONE (23:06)
[2023-02-22] MEDS ORDERED: KETOROLAC TROMETHAMINE 30 MG/1 ML VIAL ONE (23:06)
[2023-02-22 23:21] VITALS: BP 143/87; PULSE 99; RESP 18
[2023-02-23] MEDS ORDERED: CLINDAMYCIN 600MG PREMIX IVPB 600 MG/50 ML BAG IVPB ONE ×2 (00:42→00:52)
[2023-02-23] MEDS ORDERED: ACETAMINOPHEN 1000 MG/100 ML BAG IVPB ONE (02:05)
[2023-02-23] MEDS ORDERED: ACETAMINOPHEN INJECTION 100 ML IVPB ONE (02:38)
== END 2023-02-23 04:45 | disposition left against medical advice (07) ==
LOC: JER 20:57
PROC: 3E033GC Introduction of Other Therapeutic Substance into Peripheral Vein, Percutaneous Approach (ICD-10-PCS; 2023-02-22)
PROC: 3E0333Z Introduction of Anti-inflammatory into Peripheral Vein, Percutaneous Approach (ICD-10-PCS; 2023-02-22)
PROC: 3E03329 Introduction of Other Anti-infective into Peripheral Vein, Percutaneous Approach (ICD-10-PCS; principal; 2023-02-23)
PROC: 3E033NZ Introduction of Analgesics, Hypnotics, Sedatives into Peripheral Vein, Percutaneous Approach (ICD-10-PCS; 2023-02-23)
DX: R07.0 Pain in throat (principal); R00.0 Tachycardia, unspecified; J02.0 Streptococcal pharyngitis; J36 Peritonsillar abscess; M54.2 Cervicalgia; R13.10 Dysphagia, unspecified; R50.9 Fever, unspecified; Z20.822 Contact with and (suspected) exposure to COVID-19
CPT/HCPCS: 0241U-QW; 36415; 70491-TC; 80053; 84703; 85025; 99285-25; J1100; Q9967